=== PATIENT | female | born 1955 | race Caucasian/White ===

== ENCOUNTER 2016-09-13 14:42 | Inpatient (IN) | payer BC ==
--- NOTE | 2016-09-13 14:58 | ER Document Report ---
ED Medical Screen (RME) - General Stated Complaint: STOMACH/BACK/HEAD PAIN,CONFUSION Notes: left lower abdominal pain back pain and some dysuria. Patient does have a history of multiple kidney infections requiring hospitalizations. ft lower abdominal pain back pain and some dysuria. Patient does have a history of multiple kidney infections requiring hospitalizations. TRAVEL OUTSIDE OF THE [place] IN LAST 30 DAYS: No - Related Data Allergies/Adverse Reactions: Iodinated Contrast Media - Oral and [IV Dye, Iodine Containing] Allergy ( Intermediate, Verified 04/16/14 20:03) Vomiting morphine [Morphine] Allergy (Intermediate, Verified 04/16/14 20:03) Past Medical History - Past Medical History Cardiac Medical History: Reports: Hx Hypertension Denies: Hx Coronary Artery Disease, Hx Heart Attack Pulmonary Medical History: Denies: Hx Asthma, Hx Bronchitis, Hx COPD, Hx Pneumonia, Hx Tuberculosis Neurological Medical History: Denies: Hx Cerebrovascular Accident, Hx Seizures Endocrine Medical History: Reports: Hx Diabetes Mellitus Type 1, Hx Diabetes Mellitus Type 2, Hx Hypothyroidism Musculoskeltal Medical History: Denies Hx Arthritis Past Surgical History: Reports: Hx Section, Hx Tubal Ligation. Denies : Hx Pacemaker - Immunizations Hx Diphtheria, Pertussis, Tetanus Vaccination: Yes
[2016-09-13 15:27] LABS: ABSOLUTE LYMPHOCYTES (AUTO) 2.6 10^3/uL (0.5-4.7); ABSOLUTE MONOCYTES (AUTO) 0.8 10^3/uL (0.1-1.4); BASOPHILS % (AUTO) 0.3 % (0-2); HEMATOCRIT 29.7 % (36.0-47.0); HEMOGLOBIN 9.6 g/dL (12.0-15.5); HGB HCT DIFFERENCE -0.9; LYMPHOCYTES % (AUTO) 25.1 % (13-45); MEAN CORPUSCULAR HEMOGLOBIN 26.9 pg (27.0-33.4); MEAN CORPUSCULAR HGB CONC 32.2 g/dL (32.0-36.0); MEAN CORPUSCULAR VOLUME 84 fl (80-97); MONOCYTES % (AUTO) 7.7 % (3-13); RED BLOOD COUNT 3.56 10^6/uL (3.72-5.28); RED CELL DISTRIBUTION WIDTH 12.9 % (11.5-14.0); SEGMENTED NEUTROPHILS % (AUTO) 66.9 % (42-78); WHITE BLOOD COUNT 10.5 10^3/uL (4.0-10.5)
[2016-09-13 15:36] LABS: APPEARANCE,URINE CLOUDY; BILIRUBIN,URINE NEGATIVE (NEGATIVE); GLUCOSE, URINE >=500 mg/dL (NEGATIVE); KETONES,URINE NEGATIVE (NEGATIVE); LEUKOCYTE ESTERASE,URINE LARGE (NEGATIVE); NITRITE,URINE NEGATIVE (NEGATIVE); PROTEIN,URINE 30 mg/dL (NEGATIVE); URINE SPECIFIC GRAVITY 1.009; UROBILINOGEN,URINE NEGATIVE mg/dL (<2.0)
[2016-09-13 15:46] LABS: ALANINE AMINOTRANSFERASE 25 U/L (9-52); ALBUMIN 3.7 g/dL (3.5-5.0); ALKALINE PHOSPHATASE 156 U/L (38-126); ANION GAP 14 (5-19); ASPARTATE AMINO TRANSFERASE 14 U/L (14-36); BILIRUBIN,TOTAL 0.6 mg/dL (0.2-1.3); BLOOD UREA NITROGEN 44 mg/dL (7-20); CALCIUM 8.8 mg/dL (8.4-10.2); CARBON DIOXIDE 23 mmol/L (22-30); CHLORIDE 102 mmol/L (98-107); CREATININE RESULT 3.71 mg/dL (0.52-1.25); GLUCOSE 262 mg/dL (75-110); POTASSIUM 4.9 mmol/L (3.6-5.0); SODIUM 139.3 mmol/L (137-145); TOTAL PROTEIN 7.3 g/dL (6.3-8.2)
[2016-09-13] MEDS: NORMAL SALINE 1000 ML 1,000 ML IV PRN ×2 (16:00→16:59)
--- NOTE | 2016-09-13 16:20 | ER Document Report ---
ED General - General Chief Complaint: Abdominal Pain Stated Complaint: STOMACH/BACK/HEAD PAIN,CONFUSION Time seen by provider: 16:19 Mode of Arrival: Ambulatory Information source: Patient Notes: This is a 61-year-old female with a history of insulin requiring diabetes, hypertension, hypothyroidism, pyelonephritis and chronic kidney disease. Patient presents to the emergency room with subjective fevers, chills, left flank pain and left lower quadrant pain. TRAVEL OUTSIDE OF THE [place] IN LAST 30 DAYS: No - HPI Onset: Last week Onset/Duration: Gradual Quality of pain: Dull Severity: Moderate Pain Level: 2 Associated symptoms: Fever - Subjective fevers and chills, Nausea Exacerbated by: Denies Relieved by: Denies Similar symptoms previously: Yes Recently seen / treated by doctor: No - Related Data Allergies/Adverse Reactions: Iodinated Contrast Media - Oral and [IV Dye, Iodine Containing] Allergy ( Intermediate, Verified 09/13/16 14:59) Vomiting morphine [Morphine] Allergy (Intermediate, Verified 09/13/16 14:59) Past Medical History - General Information source: Patient - Social History Smoking Status: Never Smoker Cigarette use (# per day): No Chew tobacco use (# tins/day): No Frequency of alcohol use: None Drug Abuse: None Lives with: Family Family History: Reviewed & Not Pertinent Patient has suicidal ideation: No Patient has homicidal ideation: No - Past Medical History Cardiac Medical History: Reports: Hx Hypertension Denies: Hx Coronary Artery Disease, Hx Heart Attack Pulmonary Medical History: Denies: Hx Asthma, Hx Bronchitis, Hx COPD, Hx Pneumonia, Hx Tuberculosis Neurological Medical History: Denies: Hx Cerebrovascular Accident, Hx Seizures Endocrine Medical History: Reports: Hx Diabetes Mellitus Type 1, Hx Diabetes Mellitus Type 2, Hx Hypothyroidism Renal/ Medical History: Denies: Hx Peritoneal Dialysis Musculoskeltal Medical History: Denies Hx Arthritis Past Surgical History: Reports: Hx Section, Hx Tubal Ligation. Denies : Hx Pacemaker - Immunizations Hx Diphtheria, Pertussis, Tetanus Vaccination: Yes Hx Pneumococcal Vaccination: 06/30/13 Review of Systems - Review of Systems Constitutional: Chills, Fever - Subjective EENT: No symptoms reported Cardiovascular: No symptoms reported Respiratory: No symptoms reported Gastrointestinal: See HPI Genitourinary: See HPI Female Genitourinary: No symptoms reported Musculoskeletal: No symptoms reported Skin: No symptoms reported Hematologic/Lymphatic: No symptoms reported Neurological/Psychological: No symptoms reported Physical Exam - Vital signs Vitals: Temp Pulse Resp BP Pulse Ox 98.3 F 80 16 172/94 H 98 09/13/16 14:58 09/13/16 14:58 09/13/16 14:58 09/13/16 14:58 09/13/16 14:58 Notes: Physical exam: GENERAL: 61-year-old female, alert and oriented 3, no acute distress. HEAD: Atraumatic, normocephalic. EYES: Pupils equal round and reactive to light, extraocular movements intact, sclera anicteric, conjunctiva are normal. ENT: TMs normal, nares patent, oropharynx clear without exudates. Moist mucous membranes. NECK: Normal range of motion, supple without lymphadenopathy or JVD. LUNGS: Breath sounds clear to auscultation bilaterally and equal. No wheezes rales or rhonchi. HEART: Regular rate and rhythm without murmurs, rubs or gallops. ABDOMEN: Soft, mild left CVA tenderness and left lower quadrant tenderness without rebound or guarding, normoactive bowel sounds. No masses appreciated. EXTREMITIES: Normal range of motion, no pitting or edema. No clubbing or cyanosis. NEUROLOGICAL: Cranial nerves II through XII grossly intact. Normal speech, normal gait. PSYCH: Normal mood, normal affect. SKIN: Warm, Dry, normal turgor, no rashes or lesions noted. Course - Re-evaluation Re-evalutation: 09/13/16 20:46 Note: Patient has pyelonephritis in the setting of acute on chronic renal failure. I've started IV antibiotics and IV fluids and will admit the patient to the hospital. - Vital Signs Vital signs: Temp Pulse Resp BP Pulse Ox 98.0 F 77 16 152/60 H 100 09/13/16 17:39 09/13/16 17:39 09/13/16 14:58 09/13/16 17:39 09/13/16 17:39 - Laboratory Result Diagrams: 09/13/16 15:05 09/13/16 15:05 Laboratory results interpreted by me: 09/13/16 09/13/16 09/13/16 15:05 15:05 15:05 RBC 3.56 L Hgb 9.6 L Hct 29.7 L MCH 26.9 L BUN 44 H Creatinine 3.71 H Est GFR ( Amer) 15 L Est GFR (Non-Af Amer) 12 L Glucose 262 H Alkaline Phosphatase 156 H Urine Protein 30 H Urine Glucose (UA) >=500 H Urine Blood MODERATE H Ur Leukocyte Esterase LARGE H - Diagnostic Test Radiology reviewed: Image reviewed, Reports reviewed - CT of the abdomen consistent with left pyelonephritis Critical Care Note - Critical Care Note Total time excluding time spent on procedures (mins): 65 Discharge - Discharge Clinical Impression: acute on chronic renal failure, left sided pyelonephritis Condition: Serious Disposition: ADMITTED INPATIENT Admitting Provider: Hospitalist - Dr. Gates Unit Admitted: Medical Floor
[2016-09-13] MEDS ORDERED: LEVOFLOXACIN 500 MG/D5W RTU 100 ML IV ONE (16:21)
[2016-09-13] MEDS ORDERED: DEXTROSE 50%-WATER 25 GM/50 ML DISP.SYRIN IV PRN ×2 (18:35)
[2016-09-13] MEDS ORDERED: ACETAMINOPHEN 325 MG TABLET PO PRN (18:35)
[2016-09-13] MEDS ORDERED: GLUCAGON,HUMAN RECOMB 1 MG INJ IM PRN (18:35)
[2016-09-13] MEDS ORDERED: INSULIN REG, HUMAN 100 UNIT/ML 3 ML VIAL (PYX) SUBCUT PRN (18:35)
[2016-09-13] MEDS ORDERED: MAGNESIUM HYDROXIDE SUSP 30 ML UDCUP PO PRN (18:35)
[2016-09-13] MEDS ORDERED: DEXTROSE 40% GEL 15 GM TUBE PO PRN ×2 (18:35)
--- NOTE | 2016-09-13 18:51 | PDOC H&P ---
History of Present Illness Admission Date/PCP: HILARY SOTOMAYOR Patient complains of: Flank pain History of Present Illness: DAVID CAMARGO is a 61 year old female presents from home with 1 week history of worsening left flank pain. It finally got to the point where she couldn't treat with a heating pad and could sleep anymore so she came in for evaluation. She has a history of prior urinary tract infections requiring hospitalization but cannot remember the offending pathogen. She has a prior history of MRSA skin infection on her back that required excision and a wound VAC for a period of time. She complains of chills but no fever and no other associated symptoms including urinary symptoms, however she states on previous urinary tract infections she was also largely asymptomatic. On evaluation in the emergency department she has found have urinary tract infection with CT scan of the abdomen and pelvis demonstrating a left perinephric stranding consistent with pyelonephritis. We were asked to admit for further evaluation and management. Review of the old record shows in 2014 she had a penicillin resistant Escherichia coli as the source of her urinary tract infection. Past Medical History Cardiac Medical History: Reports: Hypertension Denies: Coronary Artery Disease, Myocardial Infarction Pulmonary Medical History: Denies: Asthma, Bronchitis, Chronic Obstructive Pulmonary Disease (COPD), Pneumonia, Tuberculosis Neurological Medical History: Denies: Seizures Endocrine Medical History: Reports: Diabetes Mellitus Type 2, Hypothyroidism Musculoskeltal Medical History: Denies: Arthritis Hematology: Denies: Anemia Past Surgical History Past Surgical History: Reports: Section, Tubal Ligation Denies: Pacemaker Social History Information Source: Patient Smoking Status: Never Smoker Frequency of Alcohol Use: None Hx Recreational Drug Use: No Hx Prescription Drug Abuse: No - Advance Directive Resuscitation Status: Full Code Family History Family History: Reviewed & Not Pertinent, DM, Hypertension Parental Family History Reviewed: Yes Children Family History Reviewed: Yes Sibling(s) Family History Reviewed.: Yes Medication/Allergy Home Medications: Insulin Glargine,Hum.rec.anlog [Lantus] 30 unit SQ BID 09/19/13 Levothyroxine Sodium [Synthroid] 250 mcg PO DAILY 09/19/13 Pregabalin [Lyrica 75 mg Capsule] 75 mg PO Q12 09/19/13 Valsartan/Hydrochlorothiazide [Diovan Hct 160-12.5 mg Tab] 1 each PO DAILY 09/19 Insulin Lispro [Humalog Insulin (Lispro) 100 unit/mL] 10 units SQ AC 04/17/14 Hydrocodone/Acetaminophen [[place] 5-325 mg Tablet] 1 tab PO Q4HP PRN #30 tablet 04/19/14 Sulfamethoxazole/Trimethoprim [Bactrim Ds Tablet] 1 tab PO Q12 06/26/14 Multivit with Calcium,Iron,Min [Multiple Vitamins For Women] 1 tab PO DAILY 07/13 Allergies/Adverse Reactions: Iodinated Contrast Media - Oral and [IV Dye, Iodine Containing] Allergy ( Intermediate, Verified 09/13/16 14:59) Vomiting morphine [Morphine] Allergy (Intermediate, Verified 09/13/16 14:59) Review of Systems Constitutional: PRESENT: chills. ABSENT: fever(s), headache(s), weight gain, weight loss Eyes: ABSENT: visual disturbances Ears: ABSENT: hearing changes Cardiovascular: ABSENT: chest pain, dyspnea on exertion, edema, orthropnea, palpitations Respiratory: ABSENT: cough, hemoptysis Gastrointestinal: PRESENT: abdominal pain - Left flank. ABSENT: constipation, diarrhea, hematemesis, hematochezia, nausea, vomiting Genitourinary: ABSENT: difficulty urinating, dysuria, hematuria Musculoskeletal: ABSENT: joint swelling Integumentary: ABSENT: rash, wounds Neurological: ABSENT: abnormal gait, abnormal speech, confusion, dizziness, focal weakness, syncope Psychiatric: ABSENT: anxiety, depression Endocrine: ABSENT: cold intolerance, heat intolerance, polydipsia, polyuria Hematologic/Lymphatic: ABSENT: easy bleeding, easy bruising Physical Exam Vital Signs: Temp Pulse Resp BP Pulse Ox 98.0 F 77 16 152/60 H 100 09/13/16 17:39 09/13/16 17:39 09/13/16 14:58 09/13/16 17:39 09/13/16 17:39 Intake & Output 09/12/16 09/13/16 09/14/16 06:59 06:59 06:59 Weight 87.8 kg General appearance: PRESENT: no acute distress, obese, well-developed Eye exam: PRESENT: conjunctiva pink, EOMI, PERRLA. ABSENT: scleral icterus Mouth exam: PRESENT: dry mucosa, tongue midline Neck exam: ABSENT: carotid bruit, JVD, lymphadenopathy, thyromegaly Respiratory exam: PRESENT: clear to auscultation grupo. ABSENT: rales, rhonchi, wheezes Cardiovascular exam: PRESENT: RRR. ABSENT: diastolic murmur, rubs, systolic murmur Pulses: PRESENT: normal radial pulses Vascular exam: PRESENT: normal capillary refill GI/Abdominal exam: PRESENT: normal bowel sounds, soft, tenderness - Extremely tender over the left lateral abdomen and flank with positive CVA tenderness. ABSENT: distended, guarding, rebound Rectal exam: PRESENT: deferred Extremities exam: ABSENT: calf tenderness, pedal edema Musculoskeletal exam: PRESENT: ambulatory Neurological exam: PRESENT: alert, awake, oriented to person, oriented to place , oriented to time Psychiatric exam: PRESENT: appropriate affect, normal mood Skin exam: PRESENT: dry, warm. ABSENT: rash - No ecchymosis Results Laboratory Results: 09/13/16 15:05 09/13/16 15:05 09/13/16 09/13/16 09/13/16 15:05 15:05 15:05 WBC 10.5 RBC 3.56 L Hgb 9.6 L Hct 29.7 L MCV 84 MCH 26.9 L MCHC 32.2 RDW 12.9 Plt Count 305 Seg Neutrophils % 66.9 Lymphocytes % 25.1 Monocytes % 7.7 Eosinophils % 0.0 Basophils % 0.3 Absolute Neutrophils 7.0 Absolute Lymphocytes 2.6 Absolute Monocytes 0.8 Absolute Eosinophils 0.0 Absolute Basophils 0.0 Sodium 139.3 Potassium 4.9 Chloride 102 Carbon Dioxide 23 Anion Gap 14 BUN 44 H Creatinine 3.71 H Est GFR ( Amer) 15 L Est GFR (Non-Af Amer) 12 L Glucose 262 H Calcium 8.8 Total Bilirubin 0.6 AST 14 ALT 25 Alkaline Phosphatase 156 H Total Protein 7.3 Albumin 3.7 Urine Color YELLOW Urine Appearance CLOUDY Urine pH 5.0 Ur Specific [place] 1.009 Urine Protein 30 H Urine Glucose (UA) >=500 H Urine Ketones NEGATIVE Urine Blood MODERATE H Urine Nitrite NEGATIVE Ur Leukocyte Esterase LARGE H Urine WBC (Auto) 121 Urine RBC (Auto) 10 Impressions: Abdomen/Pelvis CT 09/13/16 14:59 IMPRESSION: RE- DEMONSTRATION OF A DIMINUTIVE RIGHT KIDNEY WITH A PROMINENT LEFT KIDNEY, SIMILAR TO THAT SEEN ON 2014 CT IMAGING. EXAMINATION ALSO DEMONSTRATES LEFT PERINEPHRIC FAT STRANDING AND RETROPERITONEAL LYMPHADENOPATHY. IN THE SETTING OF LEFT FLANK PAIN, THESE FINDINGS MAY BE RELATED TO PYELONEPHRITIS. RECOMMEND CLINICAL CORRELATION. Assessment & Plan - Diagnosis (1) Pyelonephritis due to Escherichia coli Is this a current diagnosis for this admission?: YesPlan: Working diagnoses. Start empiric Rocephin, continue IV fluids. Antiemetics and analgesics as needed. (2) Acute kidney injury superimposed on chronic kidney disease Is this a current diagnosis for this admission?: YesPlan: Likely prerenal, possibly related to pyelonephritis without evidence for hydronephrosis and hydroureter on imaging. Treat with IV fluids and trend serum creatinine (3) Chronic kidney disease (CKD) stage G3b/A1, moderately decreased glomerular filtration rate (GFR) between 30-44 mL/min/1.73 square meter and albuminuria creatinine ratio less than 30 mg/g Is this a current diagnosis for this admission?: YesPlan: Sees Dr. Law outpatient. Hopefully will return to baseline with IV fluids. Avoid nephrotoxic medications. (4) Diabetes 1.5, managed as type 1 Plan: Insulin by sliding scale. Home medicines when able (5) Hypertension Qualifiers: Hypertension type: renovascular hypertension Qualified Code(s): I15.0 - Renovascular hypertension Is this a current diagnosis for this admission?: YesPlan: Reasonably well controlled, titrate antihypertensive regimen. - Time Time Spent: 30 to 50 Minutes Medications reviewed and adjusted accordingly: Yes Anticipated discharge: Home Within: within 48 hours - Inpatient Certification Based on my medical assessment, after consideration of the patient's comorbidities, presenting symptoms, or acuity I expect that the services needed warrant INPATIENT care.: Yes I certify that my determination is in accordance with my understanding of Medicare's requirements for reasonable and necessary INPATIENT services [42 CFR 412.3e].: Yes Medical Necessity: Failure to Improve With Outpatient Therapy, Need For IV Fluids, Need for IV Antibiotics
[2016-09-13] MEDS ORDERED: INSULIN GLARGINE,HUM.REC.ANLOG 1,000 UNIT/10 ML UNIT SUBCUT SCH (19:00)
[2016-09-13] MEDS: HYDROCODONE/ACETAMINOPHEN 5-325 MG TABLET PO PRN (20:00)
[2016-09-13] MEDS ORDERED: CEFTRIAXONE 1 GM/D5W RTU 1 GM/50 ML RTUPB IV ONE (20:00)
[2016-09-13] MEDS ORDERED: INFLUENZA ADLT QUAD (36MOS+) 2016-17 VAC 0.5 ML SYR IM PRN (23:53)
[2016-09-14] MEDS: HYDROCODONE/ACETAMINOPHEN 5-325 MG TABLET PO PRN ×3 (02:11→22:15)
[2016-09-14] MEDS: NORMAL SALINE 1000 ML 1,000 ML IV PRN ×2 (02:19→20:47)
[2016-09-14] MEDS: HEPARIN SOD (PORCINE) 5,000 UNIT/ML 1 ML SYRINGE SUBCUT SCH ×3 (06:31→22:14)
[2016-09-14 06:39] LABS: ABSOLUTE LYMPHOCYTES (AUTO) 2.3 10^3/uL (0.5-4.7); ABSOLUTE MONOCYTES (AUTO) 0.8 10^3/uL (0.1-1.4); BASOPHILS % (AUTO) 0.4 % (0-2); HEMOGLOBIN 8.6 g/dL (12.0-15.5); HGB HCT DIFFERENCE -1.2; MEAN CORPUSCULAR HEMOGLOBIN 26.7 pg (27.0-33.4); MEAN CORPUSCULAR HGB CONC 31.9 g/dL (32.0-36.0); MEAN CORPUSCULAR VOLUME 84 fl (80-97); MONOCYTES % (AUTO) 9.2 % (3-13); RED BLOOD COUNT 3.23 10^6/uL (3.72-5.28); RED CELL DISTRIBUTION WIDTH 13.1 % (11.5-14.0); SEGMENTED NEUTROPHILS % (AUTO) 65.4 % (42-78); WHITE BLOOD COUNT 9.1 10^3/uL (4.0-10.5)
[2016-09-14] MEDS: ONDANSETRON HCL INJ/PF 4 MG/2 ML SDV IV PRN ×2 (06:42→15:43)
[2016-09-14 06:55] LABS: ANION GAP 11 (5-19); BLOOD UREA NITROGEN 40 mg/dL (7-20); CALCIUM 8.1 mg/dL (8.4-10.2); CARBON DIOXIDE 23 mmol/L (22-30); CHLORIDE 106 mmol/L (98-107); CREATININE RESULT 3.43 mg/dL (0.52-1.25); GLUCOSE 228 mg/dL (75-110); MAGNESIUM 1.7 mg/dL (1.6-2.3); PHOSPHORUS 4.2 mg/dL (2.5-4.5); POTASSIUM 5.1 mmol/L (3.6-5.0); SODIUM 139.9 mmol/L (137-145)
[2016-09-14] MEDS: INSULIN LISPRO 100 UNIT/ML 3 ML VIAL SUBCUT PRN ×2 (08:25→11:35)
[2016-09-14] MEDS: DOCUSATE SODIUM 100 MG CAPSULE PO SCH (10:18)
[2016-09-14 12:37] LABS: FOLATE > 20.00 ng/mL (>2.76)
--- NOTE | 2016-09-14 12:44 | PDOC PROGRESS REPORT ---
Subjective Progress Note for:: 09/14/16 Subjective:: DAVID CAMARGO is a 61 year old female presents from home with 1 week history of worsening left flank pain. It finally got to the point where she couldn't treat with a heating pad and could sleep anymore so she came in for evaluation. She has a history of prior urinary tract infections requiring hospitalization but cannot remember the offending pathogen. She has a prior history of MRSA skin infection on her back that required excision and a wound VAC for a period of time. She complains of chills but no fever and no other associated symptoms including urinary symptoms, however she states on previous urinary tract infections she was also largely asymptomatic. On evaluation in the emergency department she has found have urinary tract infection with CT scan of the abdomen and pelvis demonstrating a left perinephric stranding consistent with pyelonephritis. We were asked to admit for further evaluation and management. Review of the old record shows in 2014 she had a penicillin resistant Escherichia coli as the source of her urinary tract infection. Physical Exam Vital Signs: Temp Pulse Resp BP Pulse Ox 97.4 F 63 16 136/75 H 97 09/14/16 07:42 09/14/16 07:42 09/14/16 07:42 09/14/16 07:42 09/14/16 07:42 Intake & Output 09/13/16 09/14/16 09/15/16 06:59 06:59 06:59 Intake Total 480 525 Output Total 550 Balance -70 525 Weight 87.8 kg General appearance: PRESENT: no acute distress, well-developed, well-nourished Head exam: PRESENT: atraumatic, normocephalic Eye exam: PRESENT: conjunctiva pink, EOMI, PERRLA. ABSENT: scleral icterus Ear exam: PRESENT: normal external ear exam Mouth exam: PRESENT: moist, tongue midline Neck exam: ABSENT: carotid bruit, JVD, lymphadenopathy, thyromegaly Respiratory exam: PRESENT: clear to auscultation grupo. ABSENT: rales, rhonchi, wheezes Cardiovascular exam: PRESENT: RRR. ABSENT: diastolic murmur, rubs, systolic murmur Pulses: PRESENT: normal dorsalis pedis pul Vascular exam: PRESENT: normal capillary refill GI/Abdominal exam: PRESENT: normal bowel sounds, soft, tenderness - Left lateral and flank pain. ABSENT: distended, guarding, rebound Rectal exam: PRESENT: deferred Extremities exam: PRESENT: full ROM. ABSENT: calf tenderness, clubbing, pedal edema Neurological exam: PRESENT: alert, awake, oriented to person, oriented to place , oriented to time, oriented to situation, CN II-XII grossly intact. ABSENT: motor sensory deficit Psychiatric exam: PRESENT: appropriate affect, normal mood. ABSENT: homicidal ideation, suicidal ideation Skin exam: PRESENT: dry, intact, warm. ABSENT: cyanosis, rash Results Laboratory Results: 09/14/16 06:09 09/14/16 06:09 09/14/16 09/14/16 09/14/16 06:09 06:09 06:09 WBC 9.1 RBC 3.23 L Hgb 8.6 L Hct 27.0 L MCV 84 MCH 26.7 L MCHC 31.9 L RDW 13.1 Plt Count 261 Seg Neutrophils % 65.4 Lymphocytes % 25.0 Monocytes % 9.2 Eosinophils % 0.0 Basophils % 0.4 Absolute Neutrophils 6.0 Absolute Lymphocytes 2.3 Absolute Monocytes 0.8 Absolute Eosinophils 0.0 Absolute Basophils 0.0 Retic Count (auto) 1.93 Absolute Retic 0.063 Sodium 139.9 Potassium 5.1 H Chloride 106 Carbon Dioxide 23 Anion Gap 11 BUN 40 H Creatinine 3.43 H Est GFR ( Amer) 16 L Est GFR (Non-Af Amer) 14 L Glucose 228 H Calcium 8.1 L Phosphorus 4.2 Magnesium 1.7 Iron TIBC % Saturation Ferritin Vitamin B12 Folate 09/14/16 06:09 WBC RBC Hgb Hct MCV MCH MCHC RDW Plt Count Seg Neutrophils % Lymphocytes % Monocytes % Eosinophils % Basophils % Absolute Neutrophils Absolute Lymphocytes Absolute Monocytes Absolute Eosinophils Absolute Basophils Retic Count (auto) Absolute Retic Sodium Potassium Chloride Carbon Dioxide Anion Gap BUN Creatinine Est GFR ( Amer) Est GFR (Non-Af Amer) Glucose Calcium Phosphorus Magnesium Iron 37 TIBC 247 L % Saturation 15 Ferritin 100.00 Vitamin B12 599.0 Folate > 20.00 Impressions: Abdomen/Pelvis CT 09/13/16 14:59 IMPRESSION: RE- DEMONSTRATION OF A DIMINUTIVE RIGHT KIDNEY WITH A PROMINENT LEFT KIDNEY, SIMILAR TO THAT SEEN ON 2014 CT IMAGING. EXAMINATION ALSO DEMONSTRATES LEFT PERINEPHRIC FAT STRANDING AND RETROPERITONEAL LYMPHADENOPATHY. IN THE SETTING OF LEFT FLANK PAIN, THESE FINDINGS MAY BE RELATED TO PYELONEPHRITIS. RECOMMEND CLINICAL CORRELATION. Assessment & Plan - Diagnosis (1) Pyelonephritis due to Escherichia coli Is this a current diagnosis for this admission?: YesPlan: Working diagnoses. Start empiric Rocephin awaiting final culture results, continue IV fluids. Antiemetics and analgesics as needed. (2) Acute kidney injury superimposed on chronic kidney disease Is this a current diagnosis for this admission?: YesPlan: Likely prerenal, possibly related to pyelonephritis without evidence for hydronephrosis and hydroureter on imaging. Treat with IV fluids and trend serum creatinine (3) Chronic kidney disease (CKD) stage G3b/A1, moderately decreased glomerular filtration rate (GFR) between 30-44 mL/min/1.73 square meter and albuminuria creatinine ratio less than 30 mg/g Is this a current diagnosis for this admission?: YesPlan: Sees Dr. Law outpatient. Hopefully will return to baseline with IV fluids. Avoid nephrotoxic medications. (4) Diabetes 1.5, managed as type 1 Plan: Insulin by sliding scale. Home medicines when able (5) Hypertension Qualifiers: Hypertension type: renovascular hypertension Qualified Code(s): I15.0 - Renovascular hypertension Is this a current diagnosis for this admission?: YesPlan: Reasonably well controlled, titrate antihypertensive regimen. - Time Time Spent with patient: 25-34 minutes Anticipated discharge: Home Within: within 24 hours
[2016-09-14] MEDS: CEFTRIAXONE 1 GM/D5W RTU 1 GM/50 ML RTUPB IV SCH (18:08)
[2016-09-14] MEDS: LACTOBACILLUS ACIDOPHILUS 250 MG TAB PO SCH (18:09)
[2016-09-14] MEDS: INSULIN GLARGINE,HUM.REC.ANLOG 1,000 UNIT/10 ML UNIT SUBCUT SCH (22:14)
[2016-09-15 07:03] LABS: HEMATOCRIT 28.6 % (36.0-47.0); HGB HCT DIFFERENCE -1.6; MEAN CORPUSCULAR HEMOGLOBIN 26.4 pg (27.0-33.4); MEAN CORPUSCULAR HGB CONC 31.5 g/dL (32.0-36.0); MEAN CORPUSCULAR VOLUME 84 fl (80-97); RED BLOOD COUNT 3.42 10^6/uL (3.72-5.28); RED CELL DISTRIBUTION WIDTH 12.8 % (11.5-14.0); WHITE BLOOD COUNT 7.7 10^3/uL (4.0-10.5)
[2016-09-15] MEDS: HEPARIN SOD (PORCINE) 5,000 UNIT/ML 1 ML SYRINGE SUBCUT SCH ×2 (07:22→22:31)
[2016-09-15 07:23] LABS: ANION GAP 8 (5-19); BLOOD UREA NITROGEN 36 mg/dL (7-20); CALCIUM 8.2 mg/dL (8.4-10.2); CARBON DIOXIDE 23 mmol/L (22-30); CHLORIDE 112 mmol/L (98-107); CREATININE RESULT 3.23 mg/dL (0.52-1.25); GLUCOSE 80 mg/dL (75-110); POTASSIUM 4.9 mmol/L (3.6-5.0); SODIUM 143.4 mmol/L (137-145)
[2016-09-15] MEDS: NORMAL SALINE 1000 ML 1,000 ML IV PRN ×2 (09:00→22:31)
[2016-09-15] MEDS ORDERED: HEPARIN SOD (PORCINE) 5,000 UNIT/ML 1 ML SYRINGE SUBCUT SCH (10:00)
[2016-09-15] MEDS: DOCUSATE SODIUM 100 MG CAPSULE PO SCH (10:36)
[2016-09-15] MEDS: LACTOBACILLUS ACIDOPHILUS 250 MG TAB PO SCH ×2 (10:36→17:33)
[2016-09-15] MEDS: INSULIN GLARGINE,HUM.REC.ANLOG 1,000 UNIT/10 ML UNIT SUBCUT SCH ×2 (10:36→22:31)
--- NOTE | 2016-09-15 12:26 | PDOC PROGRESS REPORT ---
Subjective Progress Note for:: 09/15/16 Subjective:: Patient is feeling better she states that the pain in the back is much more tolerable She has no fever no chills no nausea or vomiting She still on IV fluid renal function has improved somewhat Physical Exam Vital Signs: Temp Pulse Resp BP Pulse Ox 98.1 F 66 18 138/65 H 97 09/15/16 11:05 09/15/16 11:05 09/15/16 11:05 09/15/16 11:05 09/15/16 11:05 Intake & Output 09/14/16 09/15/16 09/16/16 00:59 00:59 00:59 Intake Total 1005 1740 Output Total 1450 900 Balance -445 840 Weight 87.8 kg 87.9 kg General appearance: PRESENT: no acute distress, well-developed, well-nourished Head exam: PRESENT: atraumatic, normocephalic Eye exam: PRESENT: conjunctiva pink, EOMI, PERRLA. ABSENT: scleral icterus Ear exam: PRESENT: normal external ear exam Mouth exam: PRESENT: moist, tongue midline Neck exam: ABSENT: carotid bruit, JVD, lymphadenopathy, thyromegaly Respiratory exam: PRESENT: clear to auscultation grupo. ABSENT: rales, rhonchi, wheezes Cardiovascular exam: PRESENT: RRR. ABSENT: diastolic murmur, rubs, systolic murmur Pulses: PRESENT: normal dorsalis pedis pul Vascular exam: PRESENT: normal capillary refill GI/Abdominal exam: PRESENT: normal bowel sounds, soft. ABSENT: distended, guarding, mass, organolmegaly, rebound, tenderness Rectal exam: PRESENT: deferred Extremities exam: PRESENT: full ROM. ABSENT: calf tenderness, clubbing, pedal edema Neurological exam: PRESENT: alert, awake, oriented to person, oriented to place , oriented to time, oriented to situation, CN II-XII grossly intact. ABSENT: motor sensory deficit Psychiatric exam: PRESENT: appropriate affect, normal mood. ABSENT: homicidal ideation, suicidal ideation Skin exam: PRESENT: dry, intact, warm. ABSENT: cyanosis, rash Results Laboratory Results: 09/15/16 06:13 09/15/16 06:13 09/14/16 09/14/16 09/15/16 06:09 06:09 06:13 WBC 7.7 RBC 3.42 L Hgb 9.0 L Hct 28.6 L MCV 84 MCH 26.4 L MCHC 31.5 L RDW 12.8 Plt Count 272 Sodium Potassium Chloride Carbon Dioxide Anion Gap BUN Creatinine Est GFR ( Amer) Est GFR (Non-Af Amer) Glucose Calcium Iron 37 TIBC 247 L % Saturation 15 Transferrin 177 L Ferritin 100.00 Vitamin B12 599.0 Folate > 20.00 09/15/16 06:13 WBC RBC Hgb Hct MCV MCH MCHC RDW Plt Count Sodium 143.4 Potassium 4.9 Chloride 112 H Carbon Dioxide 23 Anion Gap 8 BUN 36 H Creatinine 3.23 H Est GFR ( Amer) 18 L Est GFR (Non-Af Amer) 15 L Glucose 80 Calcium 8.2 L Iron TIBC % Saturation Transferrin Ferritin Vitamin B12 Folate Impressions: Abdomen/Pelvis CT 09/13/16 14:59 IMPRESSION: RE- DEMONSTRATION OF A DIMINUTIVE RIGHT KIDNEY WITH A PROMINENT LEFT KIDNEY, SIMILAR TO THAT SEEN ON 2013 CT IMAGING. EXAMINATION ALSO DEMONSTRATES LEFT PERINEPHRIC FAT STRANDING AND RETROPERITONEAL LYMPHADENOPATHY. IN THE SETTING OF LEFT FLANK PAIN, THESE FINDINGS MAY BE RELATED TO PYELONEPHRITIS. RECOMMEND CLINICAL CORRELATION. Assessment & Plan - Diagnosis (1) Chronic anemia Is this a current diagnosis for this admission?: YesPlan: Anemia of chronic disease secondary to CKD Hematocrit is stable at 28 Serum iron and B-12 and folate are normal Treatment as per nephrology Patient does not need Epogen at this time (2) Acute kidney injury superimposed on chronic kidney disease Is this a current diagnosis for this admission?: YesPlan: Acute on chronic renal failure Patient has underlying CKD stage IV Continue to hydrate gently (3) Pyelonephritis due to Escherichia coli Is this a current diagnosis for this admission?: YesPlan: Continue ceftriaxone (4) Diabetes 1.5, managed as type 1 Is this a current diagnosis for this admission?: YesPlan: Continue the present management (5) Hypertension Qualifiers: Hypertension type: renovascular hypertension Qualified Code(s): I15.0 - Renovascular hypertension Is this a current diagnosis for this admission?: YesPlan: Controlled - Time Time Spent with patient: 25-34 minutes Within: within 24 hours - We will discharge patient in a.m. if her renal function continues to improve
[2016-09-15] MEDS: CEFTRIAXONE 1 GM/D5W RTU 1 GM/50 ML RTUPB IV SCH (17:34)
[2016-09-15] MEDS: HYDROCODONE/ACETAMINOPHEN 5-325 MG TABLET PO PRN (22:25)
[2016-09-15] MEDS: INSULIN LISPRO 100 UNIT/ML 3 ML VIAL SUBCUT PRN (22:31)
[2016-09-15] MEDS: ONDANSETRON HCL INJ/PF 4 MG/2 ML SDV IV PRN (22:33)
[2016-09-16] MEDS: NORMAL SALINE 1000 ML 1,000 ML IV PRN (05:23)
[2016-09-16] MEDS: INSULIN GLARGINE,HUM.REC.ANLOG 1,000 UNIT/10 ML UNIT SUBCUT SCH (09:53)
[2016-09-16] MEDS: DOCUSATE SODIUM 100 MG CAPSULE PO SCH (09:55)
[2016-09-16] MEDS: HEPARIN SOD (PORCINE) 5,000 UNIT/ML 1 ML SYRINGE SUBCUT SCH (09:55)
[2016-09-16] MEDS: LACTOBACILLUS ACIDOPHILUS 250 MG TAB PO SCH (09:56)
[2016-09-16 12:10] VITALS: BP 137/71
--- NOTE | 2016-09-16 13:35 | PDOC DISCHARGE SUMMARY ---
General - Admit/Disc Date/PCP Admission Date/Primary Care Provider: 09/13/16 18:35 HILARY [employer]OTOM[employer] TEAM PSYCHOLOGIST Discharge Date: 09/16/16 - Discharge Diagnosis (1) Chronic anemia Is this a current diagnosis for this admission?: YesSummary: Anemia of chronic disease secondary to chronic renal failure H&H were 9 and 28 at discharge Follow-up with Dr. Law (2) Acute kidney injury superimposed on chronic kidney disease Is this a current diagnosis for this admission?: YesSummary: Patient's baseline creatinine was 2.5 It was 3.7 on admission Patient's creatinine has come down to 3.2 at discharge We advised the patient to continue drinking lots of fluids; and hold hydrochlorothiazide until reevaluated by Dr. Law (3) Pyelonephritis due to Escherichia coli Is this a current diagnosis for this admission?: YesSummary: The Escherichia coli was pansensitive We discharged the patient on Keflex 250 mg twice a day for 10 days (4) Diabetes 1.5, managed as type 1 Is this a current diagnosis for this admission?: YesSummary: The Lantus insulin was decreased decreased as patient's blood sugars were running on the low side during hospitalization (5) Hypertension Is this a current diagnosis for this admission?: YesSummary: Was controlled Reevaluate medications to one week; hydrochlorothiazide may need to be resumed - Additional Information Resuscitation Status: Full Code Discharge Diet: Diabetic Discharge Activity: Activity As Tolerated Home Medications: Atorvastatin Calcium [Lipitor 20 mg Tablet] 20 mg PO QHS 09/14/16 Levothyroxine Sodium [Synthroid 0.112 mg Tablet] 224 mcg PO QAM 09/14/16 Pregabalin [Lyrica 75 mg Capsule] 75 mg PO DAILY 09/14/16 Cephalexin Monohydrate [Keflex 250 mg Capsule] 250 mg PO Q12H #20 capsule Hydrocodone/Acetaminophen [[place] 5-325 mg Tablet] 1 tab PO Q4HP PRN #20 tablet 09/16/16 Insulin Glargine,Hum.rec.anlog [Lantus Insulin 100 Unit/1 ml 10 ml] 20 unit SUBCUT Q12 #1 unit 09/16/16 Insulin Lispro [Humalog Insulin (Lispro) 100 unit/mL] 0 unit SUBCUT .SLD SCALE # 1 pe 09/16/16 History of Present Illness Patient complains of: left flank pain History of Present Illness: DAVID CAMARGO is a 61 year old female presents from home with 1 week history of worsening left flank pain. It finally got to the point where she couldn't treat with a heating pad and could sleep anymore so she came in for evaluation. She has a history of prior urinary tract infections requiring hospitalization but cannot remember the offending pathogen. She has a prior history of MRSA skin infection on her back that required excision and a wound VAC for a period of time. She complains of chills but no fever and no other associated symptoms including urinary symptoms , however she states on previous urinary tract infections she was also largely asymptomatic. On evaluation in the emergency department she has found have urinary tract infection with CT scan of the abdomen and pelvis demonstrating a left perinephric stranding consistent with pyelonephritis. We were asked to admit for further evaluation and management. Review of the old record shows in 2014 she had a penicillin resistant Escherichia coli as the source of her urinary tract infection. Hospital Course Hospital Course: Patient was admitted with acute pyelonephritis There was no evidence of post obstructive uropathy She was treated with ceftriaxone IV and improved Pain decreased , leukocytosis improved Patient was discharged on Keflex Patient was in acute on chronic renal failure on admission The renal failure has improved at discharge; she is not yet back to baseline Physical Exam Vital Signs: Temp Pulse Resp BP Pulse Ox 97.4 F 65 15 137/71 H 98 09/16/16 12:06 09/16/16 12:06 09/16/16 12:06 09/16/16 12:06 09/16/16 12:06 Intake & Output 09/15/16 09/16/16 09/17/16 00:59 00:59 00:59 Intake Total 1005 2680 2586 Output Total 1450 1600 900 Balance -445 1080 1686 Weight 87.9 kg 91.8 kg Results Laboratory Results: 09/15/16 06:13 09/15/16 06:13 Labs- All tests 24 hr 09/15/16 09/15/16 09/16/16 17:33 22:11 06:21 POC Glucose 196 H 197 H 57 L 09/16/16 08:58 POC Glucose 124 H Labs- Entire Visit 01/15/17 01/15/17 01/15/17 15:05 15:05 15:05 WBC 10.5 RBC 3.56 L Hgb 9.6 L Hct 29.7 L MCV 84 MCH 26.9 L MCHC 32.2 RDW 12.9 Plt Count 305 Seg Neutrophils % 66.9 Lymphocytes % 25.1 Monocytes % 7.7 Eosinophils % 0.0 Basophils % 0.3 Absolute Neutrophils 7.0 Absolute Lymphocytes 2.6 Absolute Monocytes 0.8 Absolute Eosinophils 0.0 Absolute Basophils 0.0 Retic Count (auto) Absolute Retic Sodium 139.3 Potassium 4.9 Chloride 102 Carbon Dioxide 23 Anion Gap 14 BUN 44 H Creatinine 3.71 H Est GFR ( Amer) 15 L Est GFR (Non-Af Amer) 12 L Glucose 262 H POC Glucose Calcium 8.8 Phosphorus Magnesium Iron TIBC % Saturation Transferrin Ferritin Total Bilirubin 0.6 Direct Bilirubin 0.0 AST 14 ALT 25 Alkaline Phosphatase 156 H Total Protein 7.3 Albumin 3.7 Vitamin B12 Folate Urine Color YELLOW Urine Appearance CLOUDY Urine pH 5.0 Ur Specific [place] 1.009 Urine Protein 30 H Urine Glucose (UA) >=500 H Urine Ketones NEGATIVE Urine Blood MODERATE H Urine Nitrite NEGATIVE Urine Bilirubin NEGATIVE Urine Urobilinogen NEGATIVE Ur Leukocyte Esterase LARGE H Urine WBC (Auto) 121 Urine RBC (Auto) 10 Urine Bacteria (Auto) 1+ Urine WBC Clumps FEW Squamous Epi Cells Auto 8 U Non-Squamous Epis Auto <1 Urine Mucus (Auto) RARE Urine Ascorbic Acid NEGATIVE 09/14/16 09/14/16 09/14/16 06:09 06:09 06:09 WBC 9.1 RBC 3.23 L Hgb 8.6 L Hct 27.0 L MCV 84 MCH 26.7 L MCHC 31.9 L RDW 13.1 Plt Count 261 Seg Neutrophils % 65.4 Lymphocytes % 25.0 Monocytes % 9.2 Eosinophils % 0.0 Basophils % 0.4 Absolute Neutrophils 6.0 Absolute Lymphocytes 2.3 Absolute Monocytes 0.8 Absolute Eosinophils 0.0 Absolute Basophils 0.0 Retic Count (auto) 1.93 Absolute Retic 0.063 Sodium 139.9 Potassium 5.1 H Chloride 106 Carbon Dioxide 23 Anion Gap 11 BUN 40 H Creatinine 3.43 H Est GFR ( Amer) 16 L Est GFR (Non-Af Amer) 14 L Glucose 228 H POC Glucose Calcium 8.1 L Phosphorus 4.2 Magnesium 1.7 Iron TIBC % Saturation Transferrin Ferritin Total Bilirubin Direct Bilirubin AST ALT Alkaline Phosphatase Total Protein Albumin Vitamin B12 Folate Urine Color Urine Appearance Urine pH Ur Specific [place] Urine Protein Urine Glucose (UA) Urine Ketones Urine Blood Urine Nitrite Urine Bilirubin Urine Urobilinogen Ur Leukocyte Esterase Urine WBC (Auto) Urine RBC (Auto) Urine Bacteria (Auto) Urine WBC Clumps Squamous Epi Cells Auto U Non-Squamous Epis Auto Urine Mucus (Auto) Urine Ascorbic Acid 09/14/16 09/14/16 09/14/16 06:09 06:09 07:39 WBC RBC Hgb Hct MCV MCH MCHC RDW Plt Count Seg Neutrophils % Lymphocytes % Monocytes % Eosinophils % Basophils % Absolute Neutrophils Absolute Lymphocytes Absolute Monocytes Absolute Eosinophils Absolute Basophils Retic Count (auto) Absolute Retic Sodium Potassium Chloride Carbon Dioxide Anion Gap BUN Creatinine Est GFR ( Amer) Est GFR (Non-Af Amer) Glucose POC Glucose 219 H Calcium Phosphorus Magnesium Iron 37 TIBC 247 L % Saturation 15 Transferrin 177 L Ferritin 100.00 Total Bilirubin Direct Bilirubin AST ALT Alkaline Phosphatase Total Protein Albumin Vitamin B12 599.0 Folate > 20.00 Urine Color Urine Appearance Urine pH Ur Specific [place] Urine Protein Urine Glucose (UA) Urine Ketones Urine Blood Urine Nitrite Urine Bilirubin Urine Urobilinogen Ur Leukocyte Esterase Urine WBC (Auto) Urine RBC (Auto) Urine Bacteria (Auto) Urine WBC Clumps Squamous Epi Cells Auto U Non-Squamous Epis Auto Urine Mucus (Auto) Urine Ascorbic Acid 09/14/16 09/14/16 09/14/16 11:24 16:49 21:58 WBC RBC Hgb Hct MCV MCH MCHC RDW Plt Count Seg Neutrophils % Lymphocytes % Monocytes % Eosinophils % Basophils % Absolute Neutrophils Absolute Lymphocytes Absolute Monocytes Absolute Eosinophils Absolute Basophils Retic Count (auto) Absolute Retic Sodium Potassium Chloride Carbon Dioxide Anion Gap BUN Creatinine Est GFR ( Amer) Est GFR (Non-Af Amer) Glucose POC Glucose 221 H 146 H 128 H Calcium Phosphorus Magnesium Iron TIBC % Saturation Transferrin Ferritin Total Bilirubin Direct Bilirubin AST ALT Alkaline Phosphatase Total Protein Albumin Vitamin B12 Folate Urine Color Urine Appearance Urine pH Ur Specific [place] Urine Protein Urine Glucose (UA) Urine Ketones Urine Blood Urine Nitrite Urine Bilirubin Urine Urobilinogen Ur Leukocyte Esterase Urine WBC (Auto) Urine RBC (Auto) Urine Bacteria (Auto) Urine WBC Clumps Squamous Epi Cells Auto U Non-Squamous Epis Auto Urine Mucus (Auto) Urine Ascorbic Acid 01/17/17 01/17/17 01/17/17 06:13 06:13 06:44 WBC 7.7 RBC 3.42 L Hgb 9.0 L Hct 28.6 L MCV 84 MCH 26.4 L MCHC 31.5 L RDW 12.8 Plt Count 272 Seg Neutrophils % Lymphocytes % Monocytes % Eosinophils % Basophils % Absolute Neutrophils Absolute Lymphocytes Absolute Monocytes Absolute Eosinophils Absolute Basophils Retic Count (auto) Absolute Retic Sodium 143.4 Potassium 4.9 Chloride 112 H Carbon Dioxide 23 Anion Gap 8 BUN 36 H Creatinine 3.23 H Est GFR ( Amer) 18 L Est GFR (Non-Af Amer) 15 L Glucose 80 POC Glucose 72 Calcium 8.2 L Phosphorus Magnesium Iron TIBC % Saturation Transferrin Ferritin Total Bilirubin Direct Bilirubin AST ALT Alkaline Phosphatase Total Protein Albumin Vitamin B12 Folate Urine Color Urine Appearance Urine pH Ur Specific [place] Urine Protein Urine Glucose (UA) Urine Ketones Urine Blood Urine Nitrite Urine Bilirubin Urine Urobilinogen Ur Leukocyte Esterase Urine WBC (Auto) Urine RBC (Auto) Urine Bacteria (Auto) Urine WBC Clumps Squamous Epi Cells Auto U Non-Squamous Epis Auto Urine Mucus (Auto) Urine Ascorbic Acid 09/15/16 09/15/16 09/15/16 11:25 17:33 22:11 WBC RBC Hgb Hct MCV MCH MCHC RDW Plt Count Seg Neutrophils % Lymphocytes % Monocytes % Eosinophils % Basophils % Absolute Neutrophils Absolute Lymphocytes Absolute Monocytes Absolute Eosinophils Absolute Basophils Retic Count (auto) Absolute Retic Sodium Potassium Chloride Carbon Dioxide Anion Gap BUN Creatinine Est GFR ( Amer) Est GFR (Non-Af Amer) Glucose POC Glucose 142 H 196 H 197 H Calcium Phosphorus Magnesium Iron TIBC % Saturation Transferrin Ferritin Total Bilirubin Direct Bilirubin AST ALT Alkaline Phosphatase Total Protein Albumin Vitamin B12 Folate Urine Color Urine Appearance Urine pH Ur Specific [place] Urine Protein Urine Glucose (UA) Urine Ketones Urine Blood Urine Nitrite Urine Bilirubin Urine Urobilinogen Ur Leukocyte Esterase Urine WBC (Auto) Urine RBC (Auto) Urine Bacteria (Auto) Urine WBC Clumps Squamous Epi Cells Auto U Non-Squamous Epis Auto Urine Mucus (Auto) Urine Ascorbic Acid 09/16/16 09/16/16 06:21 08:58 WBC RBC Hgb Hct MCV MCH MCHC RDW Plt Count Seg Neutrophils % Lymphocytes % Monocytes % Eosinophils % Basophils % Absolute Neutrophils Absolute Lymphocytes Absolute Monocytes Absolute Eosinophils Absolute Basophils Retic Count (auto) Absolute Retic Sodium Potassium Chloride Carbon Dioxide Anion Gap BUN Creatinine Est GFR ( Amer) Est GFR (Non-Af Amer) Glucose POC Glucose 57 L 124 H Calcium Phosphorus Magnesium Iron TIBC % Saturation Transferrin Ferritin Total Bilirubin Direct Bilirubin AST ALT Alkaline Phosphatase Total Protein Albumin Vitamin B12 Folate Urine Color Urine Appearance Urine pH Ur Specific [place] Urine Protein Urine Glucose (UA) Urine Ketones Urine Blood Urine Nitrite Urine Bilirubin Urine Urobilinogen Ur Leukocyte Esterase Urine WBC (Auto) Urine RBC (Auto) Urine Bacteria (Auto) Urine WBC Clumps Squamous Epi Cells Auto U Non-Squamous Epis Auto Urine Mucus (Auto) Urine Ascorbic Acid Impressions: Abdomen/Pelvis CT 09/13/16 14:59 IMPRESSION: RE- DEMONSTRATION OF A DIMINUTIVE RIGHT KIDNEY WITH A PROMINENT LEFT KIDNEY, SIMILAR TO THAT SEEN ON 2014 CT IMAGING. EXAMINATION ALSO DEMONSTRATES LEFT PERINEPHRIC FAT STRANDING AND RETROPERITONEAL LYMPHADENOPATHY. IN THE SETTING OF LEFT FLANK PAIN, THESE FINDINGS MAY BE RELATED TO PYELONEPHRITIS. RECOMMEND CLINICAL CORRELATION. Plan Discharge Plan: Discharged home Follow up with nephrology and primary care Time Spent: Greater than 30 Minutes
== END 2016-09-16 12:30 | disposition home or self-care (01) | DRG 690 ==
LOC: ER 14:42 → EH 18:35 → 2N 23:15
PROVIDERS: ADMIT Internal Medicine; ATTEND Internal Medicine
DX: N12 Tubulo-interstitial nephritis, not specified as acute or chronic (principal); B96.20 Unspecified Escherichia coli [E. coli] as the cause of diseases classified elsewhere; N17.9 Acute kidney failure, unspecified; E10.22 Type 1 diabetes mellitus with diabetic chronic kidney disease; I12.9 Hypertensive chronic kidney disease with stage 1 through stage 4 chronic kidney disease, or unspecified chronic kidney disease; N18.4 Chronic kidney disease, stage 4 (severe); D63.1 Anemia in chronic kidney disease; E03.9 Hypothyroidism, unspecified; Z88.5 Allergy status to narcotic agent; Z91.041 Radiographic dye allergy status
CPT/HCPCS: 36415; 74176; 80048; 80053; 81001; 82607; 82728; 82746; 82962; 83540; 83550; 83735; 84100; 84466; 85025; 85027; 85045; 87040; 87086; 96361; 96365; 99291; J0696; J1644; J1815; J1956; J2405; J7030

== ENCOUNTER → 2016-09-18 | Outpatient (CLI) | payer BC ==
[2016-09-18 14:50] LABS: HEMATOCRIT 30.8 % (36.0-47.0); HEMOGLOBIN 9.7 g/dL (12.0-15.5); HGB HCT DIFFERENCE -1.7; MEAN CORPUSCULAR HEMOGLOBIN 26.4 pg (27.0-33.4); MEAN CORPUSCULAR HGB CONC 31.5 g/dL (32.0-36.0); MEAN CORPUSCULAR VOLUME 84 fl (80-97); RED BLOOD COUNT 3.68 10^6/uL (3.72-5.28); RED CELL DISTRIBUTION WIDTH 13.4 % (11.5-14.0); WHITE BLOOD COUNT 8.1 10^3/uL (4.0-10.5)
[2016-09-18 15:16] LABS: ANION GAP 16 (5-19); BLOOD UREA NITROGEN 28 mg/dL (7-20); CALCIUM 8.9 mg/dL (8.4-10.2); CARBON DIOXIDE 20 mmol/L (22-30); CHLORIDE 110 mmol/L (98-107); CREATININE RESULT 3.21 mg/dL (0.52-1.25); GLUCOSE 89 mg/dL (75-110); PHOSPHORUS 4.7 mg/dL (2.5-4.5); POTASSIUM 5.4 mmol/L (3.6-5.0); SODIUM 145.7 mmol/L (137-145)
== END ==
LOC: OD 13:49
PROVIDERS: ATTEND Internal Medicine Nephrology
DX: E11.22 Type 2 diabetes mellitus with diabetic chronic kidney disease (principal); N18.4 Chronic kidney disease, stage 4 (severe); D64.9 Anemia, unspecified; E87.5 Hyperkalemia
CPT/HCPCS: 36415; 80048; 83970; 84100; 85027

== ENCOUNTER 2016-09-25 15:54 | Inpatient (IN) | payer BC ==
--- NOTE | 2016-09-25 16:09 | ER Document Report ---
ED Medical Screen (RME) - General Chief Complaint: High Blood Pressure Stated Complaint: BLOOD PRESSURE PROBLEM Mode of Arrival: Wheelchair Information source: Relative Notes: 61-year-old female presents to ED for severe headache blood pressure of 217/115 was sent over here by Dr. Law (pressure 258/117) in the office. Family states she's had a headache for 4 days and confusion today. Consult to Dr. Espinoza stated get the CT of the head and to give her clonidine 0.2 by mouth if she is not a really had something for the blood pressure. I have greeted and performed a rapid initial assessment of this patient. A comprehensive ED assessment and evaluation of the patient, analysis of test results and completion of medical decision making process will be conducted by an additional ED providers. TRAVEL OUTSIDE OF THE [place] IN LAST 30 DAYS: No - Related Data Allergies/Adverse Reactions: Iodinated Contrast Media - Oral and [IV Dye, Iodine Containing] Allergy ( Intermediate, Verified 09/13/16 14:59) Vomiting morphine [Morphine] Allergy (Intermediate, Verified 09/13/16 14:59) Past Medical History - Social History Chew tobacco use (# tins/day): No Frequency of alcohol use: None Drug Abuse: None - Past Medical History Cardiac Medical History: Reports: Hx Hypertension Denies: Hx Coronary Artery Disease, Hx Heart Attack Pulmonary Medical History: Denies: Hx Asthma, Hx Bronchitis, Hx COPD, Hx Pneumonia, Hx Tuberculosis Neurological Medical History: Denies: Hx Cerebrovascular Accident, Hx Seizures Endocrine Medical History: Reports: Hx Diabetes Mellitus Type 1, Hx Diabetes Mellitus Type 2, Hx Hypothyroidism Renal/ Medical History: Denies: Hx Peritoneal Dialysis Musculoskeltal Medical History: Denies Hx Arthritis Past Surgical History: Reports: Hx Section, Hx Tubal Ligation. Denies : Hx Pacemaker - Immunizations Hx Diphtheria, Pertussis, Tetanus Vaccination: Yes Physical Exam - Vital signs Vitals: Temp Pulse Resp BP Pulse Ox 97.3 F 76 22 H 258/117 H 98 09/25/16 15:59 09/25/16 15:59 09/25/16 15:59 09/25/16 15:59 09/25/16 15:59 Course - Vital Signs Vital signs: Temp Pulse Resp BP Pulse Ox 97.3 F 76 22 H 258/117 H 98 09/25/16 15:59 09/25/16 15:59 09/25/16 15:59 09/25/16 15:59 09/25/16 15:59
[2016-09-25] MEDS ORDERED: CLONIDINE HCL 0.2 MG TABLET PO ONE (16:19)
[2016-09-25 17:18] LABS: ABSOLUTE BASOPHILS # (AUTO) 0.1 10^3/uL (0.0-0.2); ABSOLUTE LYMPHOCYTES (AUTO) 2.3 10^3/uL (0.5-4.7); ABSOLUTE MONOCYTES (AUTO) 0.6 10^3/uL (0.1-1.4); ABSOLUTE NEUT (AUTO) 5.6 10^3/uL (1.7-8.2); BASOPHILS % (AUTO) 0.6 % (0-2); EOSINOPHILS % (AUTO) 0.1 % (0-6); HEMATOCRIT 31.5 % (36.0-47.0); HEMOGLOBIN 10.5 g/dL (12.0-15.5); LYMPHOCYTES % (AUTO) 27.2 % (13-45); MEAN CORPUSCULAR HEMOGLOBIN 27.3 pg (27.0-33.4); MEAN CORPUSCULAR HGB CONC 33.2 g/dL (32.0-36.0); MEAN CORPUSCULAR VOLUME 82 fl (80-97); MONOCYTES % (AUTO) 6.8 % (3-13); RED BLOOD COUNT 3.83 10^6/uL (3.72-5.28); RED CELL DISTRIBUTION WIDTH 13.8 % (11.5-14.0); SEGMENTED NEUTROPHILS % (AUTO) 65.3 % (42-78); WHITE BLOOD COUNT 8.5 10^3/uL (4.0-10.5)
--- NOTE | 2016-09-25 17:22 | ER Document Report ---
ED General - General Chief Complaint: High Blood Pressure Stated Complaint: BLOOD PRESSURE PROBLEM Mode of Arrival: Wheelchair Notes: Patient is complaining of a headache, located across the lower frontal forehead region for the past 8 days. She was in this hospital for a "kidney infection" for 3 days and discharged about 9 days ago. Patient says that while she was here, the doctors told her to stop taking her blood pressure medicine because one of them was increasing her potassium level and the other one was making her dehydrated. Patient says they did not offer an alternative for her blood pressure. She's had some vomiting, the last being last night. Has not had a fever. Has not had any loss of consciousness or any neurologic deficits. Patient went to Dr. Law's office today, but he felt that her problem was too complex for him to try to handle in the office with oral medications. TRAVEL OUTSIDE OF THE [place] IN LAST 30 DAYS: No - Related Data Allergies/Adverse Reactions: Iodinated Contrast Media - Oral and [IV Dye, Iodine Containing] Allergy ( Intermediate, Verified 09/13/16 14:59) Vomiting morphine [Morphine] Allergy (Intermediate, Verified 09/13/16 14:59) Past Medical History - General Information source: Relative - Social History Smoking Status: Smoker,Current Status Unk Cigarette use (# per day): No Chew tobacco use (# tins/day): No Frequency of alcohol use: None Drug Abuse: None Family History: Reviewed & Not Pertinent Patient has suicidal ideation: No Patient has homicidal ideation: No - Past Medical History Cardiac Medical History: Reports: Hx Hypercholesterolemia, Hx Hypertension Neurological Medical History: Denies: Hx Cerebrovascular Accident, Hx Seizures Endocrine Medical History: Reports: Hx Diabetes Mellitus Type 1, Hx Diabetes Mellitus Type 2, Hx Hypothyroidism Musculoskeltal Medical History: Denies Hx Arthritis Past Surgical History: Reports: Hx Section, Hx Tubal Ligation - Immunizations Hx Diphtheria, Pertussis, Tetanus Vaccination: Yes Hx Pneumococcal Vaccination: 06/30/13 Review of Systems - Review of Systems Notes: REVIEW OF SYSTEMS: CONSTITUTIONAL : Denies fever. EENT: Denies eye, ear, nose or mouth or throat pain or other symptoms. CARDIOVASCULAR: Denies chest pain. RESPIRATORY: Denies cough, chest congestion, or shortness of breath. GASTROINTESTINAL: Denies abdominal pain but has been having nausea and some vomiting, the most recent being last night. Denies diarrhea.. GENITOURINARY: Denies difficulty or painful urinating, urinary frequency, blood in urine. MUSCULOSKELETAL: Denies back or neck pain. Denies joint pain or swelling. SKIN: Denies rash or skin lesions. NEUROLOGICAL: Denies LOC or altered mental status. Denies headache. Denies sensory loss or motor deficits. ALL OTHER SYSTEMS REVIEWED AND NEGATIVE. Physical Exam - Vital signs Vitals: Temp Pulse Resp BP Pulse Ox 97.3 F 76 22 H 258/117 H 98 09/25/16 15:59 09/25/16 15:59 09/25/16 15:59 09/25/16 15:59 09/25/16 15:59 Interpretation: Hypertensive - 258/117. - Notes Notes: PHYSICAL EXAMINATION: GENERAL: Well-appearing, in no acute distress. Blood pressure 258/117. Patient is awake and alert. HEAD: Atraumatic, normocephalic. EYES: Pupils equal round and reactive to light, extraocular movements intact. ENT: oropharynx clear without exudates. Moist mucous membranes. NECK: Normal range of motion, supple. LUNGS: Breath sounds clear and equal bilaterally. HEART: Regular rate and rhythm without murmurs. ABDOMEN: Soft, nontender. No guarding or rebound. BACK: No tenderness throughout entire back. EXTREMITIES: Normal range of motion without pain. NEUROLOGICAL: Normal speech gait. Normal sensory, motor, and reflex exams. Awake, alert, and oriented x3. PSYCH: Normal mood, normal affect. SKIN: Warm, dry, no rashes. Course - Re-evaluation Re-evalutation: 09/25/16 17:[address] Law, patient's private doctor/superior court justice. He recommended blood pressure control with consideration of admission for malignant hypertension. I will contact hospitalist for patient evaluation after I get her lab results come back. 09/25/16 18:08 Labs come back showing relatively stable renal insufficiency with a creatinine of 2.9 and a BUN of 28 and a potassium of 5.5. CBC is relatively stable with a hemoglobin at 10.5. Blood pressure at this time is 190/110. Patient says her headache is no better, however. Spoke with Dr. Gates, hospitalist quality control associate at this time, and he will see the patient in the emergency department to admit her. - Vital Signs Vital signs: Temp Pulse Resp BP Pulse Ox 98.1 F 66 16 119/110 H 97 09/25/16 17:47 09/25/16 17:47 09/25/16 17:47 09/25/16 18:03 09/25/16 17:47 - Laboratory Result Diagrams: 09/25/16 17:00 09/25/16 17:00 Laboratory results interpreted by me: 09/25/16 09/25/16 09/25/16 17:00 17:00 17:50 Hgb 10.5 L Hct 31.5 L Potassium 5.5 H Chloride 109 H Carbon Dioxide 21 L BUN 28 H Creatinine 2.94 H Est GFR ( Amer) 20 L Est GFR (Non-Af Amer) 16 L Glucose 111 H Alkaline Phosphatase 149 H Urine Protein 100 H Urine Glucose (UA) 50 H Urine Blood SMALL H Ur Leukocyte Esterase SMALL H - Diagnostic Test Radiology reviewed: Image reviewed, Reports reviewed - CT scan of the brain is normal. - EKG Interpretation by Me EKG shows normal: Sinus rhythm Rate: Normal Rhythm: NSR Additional EKG results interpreted by me: 09/25/16 18:49 EKG is normal. Critical Care Note - Critical Care Note Total time excluding time spent on procedures (mins): 40 Discharge - Discharge Clinical Impression: Hypertension Qualifiers: Hypertension type: renovascular hypertension Qualified Code(s): I15.0 - Renovascular hypertension Headache Qualifiers: Headache type: unspecified Headache chronicity pattern: chronic headache Intractability: intractable Qualified Code(s): R51 - Headache Condition: Fair Disposition: ADMITTED INPATIENT Admitting Provider: Hospitalist Unit Admitted: [facility]
[2016-09-25 17:25] LABS: PROTHROMBIN TIME 12.9 SEC (11.4-15.4)
[2016-09-25 17:26] LABS: PARTIAL THROMBOPLASTIN TIME 35.2 SEC (23.5-35.8)
[2016-09-25 17:52] LABS: ALANINE AMINOTRANSFERASE 33 U/L (9-52); ALBUMIN 3.8 g/dL (3.5-5.0); ALKALINE PHOSPHATASE 149 U/L (38-126); ANION GAP 15 (5-19); ASPARTATE AMINO TRANSFERASE 21 U/L (14-36); BILIRUBIN,TOTAL 0.7 mg/dL (0.2-1.3); BLOOD UREA NITROGEN 28 mg/dL (7-20); CALCIUM 9.2 mg/dL (8.4-10.2); CARBON DIOXIDE 21 mmol/L (22-30); CHLORIDE 109 mmol/L (98-107); CREATININE RESULT 2.94 mg/dL (0.52-1.25); GLUCOSE 111 mg/dL (75-110); POTASSIUM 5.5 mmol/L (3.6-5.0); TOTAL PROTEIN 7.8 g/dL (6.3-8.2)
[2016-09-25] MEDS ORDERED: DEXTROSE 50%-WATER 25 GM/50 ML DISP.SYRIN IV PRN ×2 (18:38)
[2016-09-25] MEDS ORDERED: DEXTROSE 40% GEL 15 GM TUBE PO PRN ×2 (18:38)
[2016-09-25] MEDS ORDERED: GLUCAGON,HUMAN RECOMB 1 MG INJ IM PRN (18:38)
[2016-09-25] MEDS ORDERED: HYDRALAZINE HCL INJ/PF 20 MG/1 ML SDV IV PRN (18:49)
[2016-09-25 18:51] LABS: APPEARANCE,URINE CLEAR; BILIRUBIN,URINE NEGATIVE (NEGATIVE); GLUCOSE, URINE 50 mg/dL (NEGATIVE); KETONES,URINE NEGATIVE (NEGATIVE); LEUKOCYTE ESTERASE,URINE SMALL (NEGATIVE); NITRITE,URINE NEGATIVE (NEGATIVE); PROTEIN,URINE 100 mg/dL (NEGATIVE); URINE SPECIFIC GRAVITY 1.008; UROBILINOGEN,URINE NEGATIVE mg/dL (<2.0)
--- NOTE | 2016-09-25 19:06 | PDOC H&P ---
History of Present Illness Admission Date/PCP: 09/25/2016 Patient complains of: High blood pressure and headache History of Present Illness: DAVID CAMARGO is a 61 year old female who presents from Dr. Law's office today where she was being seen for routine hospital follow-up after recent discharge and was found to be significantly hypertensive with blood pressure reportedly 258/117. She reports a low-grade, constant frontal headache for the last 8 days worse today described as increased intensity. It's a dull aching pain, nonradiating but with associated blurred vision and nausea; family also notes slurred speech, slowed mentation, and periods of "blacking out" lasting for about an hour and a half this afternoon when her blood pressure and headache were at their worst and seemed to resolve what her blood pressure came down after treatment. She denies numbness and tingling, unilateral weakness, facial droop, difficulty swallowing, chest pain, palpitations, swelling of her lower extremities, orthopnea and PND, and fevers or chills. She denies stiff neck or decreased range of motion in the neck. She was just discharged from this facility on 09/16/2016 after successful 4d treatment of pyelonephritis however her usual antihypertensive regimen was held at discharge due to hyperkalemia and volume depletion. She is seen by Dr. Law for stage IV chronic kidney disease not yet in need of hemodialysis. Evaluation in the emergency department showed her to be quite hypertensive this resolved with a single dose of clonidine 0.2 mg dropping her systolic pressure by 68 points and her diastolic pressure by 7 points with good improvement in her symptoms but without resolution of same. As a result we were asked to admit for further evaluation and management. Past Medical History Cardiac Medical History: Reports: Hyperlipidema, Hypertension Denies: Coronary Artery Disease, Myocardial Infarction Pulmonary Medical History: Denies: Asthma, Bronchitis, Chronic Obstructive Pulmonary Disease (COPD), Pneumonia, Tuberculosis Neurological Medical History: Denies: Seizures Endocrine Medical History: Reports: Diabetes Mellitus Type 1, Diabetes Mellitus Type 2, Hypothyroidism Musculoskeltal Medical History: Denies: Arthritis Hematology: Denies: Anemia Past Surgical History Past Surgical History: Reports: Section, Tubal Ligation Denies: Pacemaker Social History Information Source: Patient Smoking Status: Never Smoker Frequency of Alcohol Use: None Hx Recreational Drug Use: No Drugs: None Hx Prescription Drug Abuse: No - Advance Directive Resuscitation Status: Full Code Family History Family History: DM, Hypertension Parental Family History Reviewed: Yes Children Family History Reviewed: Yes Sibling(s) Family History Reviewed.: Yes Medication/Allergy Home Medications: Atorvastatin Calcium [Lipitor 20 mg Tablet] 20 mg PO QHS 09/14/16 Levothyroxine Sodium [Synthroid 0.112 mg Tablet] 224 mcg PO QAM 09/14/16 Pregabalin [Lyrica 75 mg Capsule] 75 mg PO DAILY 09/14/16 Cephalexin Monohydrate [Keflex 250 mg Capsule] 250 mg PO Q12H #20 capsule Hydrocodone/Acetaminophen [[place] 5-325 mg Tablet] 1 tab PO Q4HP PRN #20 tablet 09/16/16 Insulin Glargine,Hum.rec.anlog [Lantus Insulin 100 Unit/1 ml 10 ml] 20 unit SUBCUT Q12 #1 unit 09/16/16 Insulin Lispro [Humalog Insulin (Lispro) 100 unit/mL] 0 unit SUBCUT .SLD SCALE # 1 pe 09/16/16 Allergies/Adverse Reactions: Iodinated Contrast Media - Oral and [IV Dye, Iodine Containing] Allergy ( Intermediate, Verified 09/13/16 14:59) Vomiting morphine [Morphine] Allergy (Intermediate, Verified 09/13/16 14:59) Review of Systems All systems: reviewed and no additional remarkable complaints except as stated Constitutional: PRESENT: as per HPI, headache(s). ABSENT: chills, fever(s), weight gain, weight loss Eyes: PRESENT: as per HPI, visual disturbances Ears: ABSENT: hearing changes Cardiovascular: ABSENT: chest pain, dyspnea on exertion, edema, orthropnea, palpitations Respiratory: ABSENT: cough, hemoptysis Gastrointestinal: ABSENT: abdominal pain, constipation, diarrhea, hematemesis, hematochezia, nausea, vomiting Genitourinary: ABSENT: dysuria, hematuria Musculoskeletal: ABSENT: joint swelling Integumentary: ABSENT: rash, wounds Neurological: PRESENT: as per HPI, abnormal speech, confusion. ABSENT: abnormal gait, dizziness, focal weakness, lack of coordination, numbness, syncope, tingling, tremor(s), weakness Psychiatric: ABSENT: anxiety, depression Endocrine: ABSENT: cold intolerance, heat intolerance, polydipsia, polyuria Hematologic/Lymphatic: ABSENT: easy bleeding, easy bruising Physical Exam Vital Signs: Temp Pulse Resp BP Pulse Ox 98.1 F 66 16 119/110 H 97 09/25/16 17:47 09/25/16 17:47 09/25/16 17:47 09/25/16 18:03 09/25/16 17:47 Intake & Output 09/24/16 09/25/16 09/26/16 06:59 06:59 06:59 Weight 93.1 kg PHYSICAL EXAM GENERAL: NAD; well developed, well nourished; moderate obese; alert and oriented to person, place, time, situation HEENT: normocephalic, atraumatic; EOMI, PERRLA, no conjunctival injection, no scleral icterus; oral mucosa dry with thin white coating on tongue, normal dentition; neck supple, no LAD, normal ROM RESPIRATORY: no accessory muscle use, no increased WOB, good air entry bilaterally; no wheezes, rales, rhonchi; no inspiratory crackles CARDIO: no JVD; RRR; no systolic murmur; no tachycardia VASCULAR: no carotid bruit; no abdominal bruit; no pallor; 2+ radial, DP pulse ; normal capillary refill GI: soft; nondistended; normal bowel sounds; no hepato spleno megaly; no rebound, rigidity, guarding NEURO: normal patella reflexes; normal sensation; normal motor function; no gait abnls; no dysarthria; no nystagmus; tongue protrudes midline; normal finger to nose; able to cross midline with finger to ear MSK: 5/5 strength; normal ROM hips; ambulatory without assistance; no tenderness EXTREMITIES: no calf tender; no palpable cords in calf; no clubbing, cyanosis , pedal edema PSYCH: normal affect, normal mood SKIN: warm; moist; no petechiae; no telengectasias; no jaundice; no rash Results Laboratory Results: 09/25/16 17:00 09/25/16 17:00 09/25/16 09/25/16 09/25/16 17:00 17:00 17:50 WBC 8.5 RBC 3.83 Hgb 10.5 L Hct 31.5 L MCV 82 MCH 27.3 MCHC 33.2 RDW 13.8 Plt Count 317 Seg Neutrophils % 65.3 Lymphocytes % 27.2 Monocytes % 6.8 Eosinophils % 0.1 Basophils % 0.6 Absolute Neutrophils 5.6 Absolute Lymphocytes 2.3 Absolute Monocytes 0.6 Absolute Eosinophils 0.0 Absolute Basophils 0.1 Sodium 145.0 Potassium 5.5 H Chloride 109 H Carbon Dioxide 21 L Anion Gap 15 BUN 28 H Creatinine 2.94 H Est GFR ( Amer) 20 L Est GFR (Non-Af Amer) 16 L Glucose 111 H Calcium 9.2 Total Bilirubin 0.7 AST 21 ALT 33 Alkaline Phosphatase 149 H Total Protein 7.8 Albumin 3.8 Urine Color STRAW Urine Appearance CLEAR Urine pH 7.0 Ur Specific [place] 1.008 Urine Protein 100 H Urine Glucose (UA) 50 H Urine Ketones NEGATIVE Urine Blood SMALL H Urine Nitrite NEGATIVE Ur Leukocyte Esterase SMALL H Urine WBC (Auto) 16 Urine RBC (Auto) 0 Impressions: Head CT 09/25/16 16:04 IMPRESSION: NORMAL BRAIN CT WITHOUT CONTRAST. Assessment & Plan - Diagnosis (1) Malignant hypertension Is this a current diagnosis for this admission?: YesPlan: Admit to IMCU for close hemodynamic monitoring. Empirically start Norvasc tonight, clonidine twice a day and Lasix in the morning. Cover with hydralazine IV as needed tonight and can add IV Lopressor if needed however her heart rate is in the mid 60s to mid 70s. We'll trend 3 sets cardiac enzymes to rule out acute ischemia related. Check echocardiogram in the morning as I do not see one on the chart in the last year looking for LVH, wall motion abnormalities, etc. (2) Headache Qualifiers: Headache type: unspecified Headache chronicity pattern: acute headache Intractability: intractable Qualified Code(s): R51 - Headache Is this a current diagnosis for this admission?: YesPlan: Likely related to the above, hoping this will resolve as we could control her blood pressure. CT scan was negative however if her symptoms persist or she shows neurologic signs we'll check an MRI of the brain without contrast due to her underlying renal disease. Treat with Tylenol and oxycodone (she has tolerated oxycodone and hydrocodone in the past) (3) Chronic kidney disease (CKD) stage G3b/A1, moderately decreased glomerular filtration rate (GFR) between 30-44 mL/min/1.73 square meter and albuminuria creatinine ratio less than 30 mg/g Is this a current diagnosis for this admission?: YesPlan: Continue to monitor and consult nephrology as needed. (4) Diabetes 1.5, managed as type 1 Is this a current diagnosis for this admission?: YesPlan: Cover with sliding scale insulin while here and continue home glargine 20 units twice a day. (5) Chronic anemia Is this a current diagnosis for this admission?: YesPlan: Hemoglobin is stable. No evidence for acute blood loss. - Time Time Spent: 50 to 70 Minutes Anticipated discharge: Home Within: within 48 hours - Inpatient Certification Based on my medical assessment, after consideration of the patient's comorbidities, presenting symptoms, or acuity I expect that the services needed warrant INPATIENT care.: Yes I certify that my determination is in accordance with my understanding of Medicare's requirements for reasonable and necessary INPATIENT services [42 CFR 412.3e].: Yes Medical Necessity: Significant Comorbidiites Make Outpatient Treatment Too Risky , Need For Continuous Telemetry Monitoring, Need for Pain Control
[2016-09-25 19:09] LABS: MAGNESIUM 1.5 mg/dL (1.6-2.3); PHOSPHORUS 4.6 mg/dL (2.5-4.5)
--- NOTE | 2016-09-25 20:00 | EKG REPORT ---
SEVERITY:- NORMAL ECG - SINUS RHYTHM : Confirmed by: Kortney Young MD 25-Sep-2016 19:59:46
[2016-09-25] MEDS: OXYCODONE-ACETAMINOPHEN 5-325 MG TABLET PO PRN (20:31)
[2016-09-25] MEDS: CLONIDINE HCL 0.1 MG TABLET PO SCH (21:53)
[2016-09-25] MEDS: HEPARIN SOD (PORCINE) 5,000 UNIT/ML 1 ML SYRINGE SUBCUT SCH (21:55)
[2016-09-25] MEDS: PANTOPRAZOLE SODIUM 40 MG VIAL IV SCH (21:55)
[2016-09-25] MEDS ORDERED: AMLODIPINE BESYLATE 10 MG TABLET PO SCH (22:00)
[2016-09-25] MEDS ORDERED: MAGNESIUM SULFATE/D5W 1 G/100 ML RTUPB IV ONE (22:06)
[2016-09-25] MEDS: INSULIN LISPRO 100 UNIT/ML 3 ML VIAL SUBCUT PRN (22:09)
[2016-09-25] MEDS: INSULIN GLARGINE,HUM.REC.ANLOG 300 UNIT/3 ML INSULN.PEN SUBCUT SCH (22:09)
[2016-09-25] MEDS ORDERED: INFLUENZA ADLT QUAD (36MOS+) 2016-17 VAC 0.5 ML SYR IM PRN (22:10)
[2016-09-25] MEDS: ONDANSETRON HCL INJ/PF 4 MG/2 ML SDV IV PRN (22:33)
[2016-09-26] MEDS: HEPARIN SOD (PORCINE) 5,000 UNIT/ML 1 ML SYRINGE SUBCUT SCH ×3 (06:21→21:06)
[2016-09-26 07:25] LABS: ANION GAP 12 (5-19); BLOOD UREA NITROGEN 27 mg/dL (7-20); CARBON DIOXIDE 21 mmol/L (22-30); CHLORIDE 110 mmol/L (98-107); CREATININE RESULT 2.76 mg/dL (0.52-1.25); GLUCOSE 171 mg/dL (75-110); POTASSIUM 5.5 mmol/L (3.6-5.0); SODIUM 143.2 mmol/L (137-145)
[2016-09-26 08:07] LABS: FREE T3 2.35 pg/mL (2.77-5.27)
[2016-09-26] MEDS ORDERED: FUROSEMIDE 20 MG TABLET PO SCH (10:00)
[2016-09-26] MEDS: PANTOPRAZOLE SODIUM 40 MG VIAL IV SCH ×2 (10:42→21:06)
[2016-09-26] MEDS: INSULIN GLARGINE,HUM.REC.ANLOG 300 UNIT/3 ML INSULN.PEN SUBCUT SCH ×2 (10:43→21:22)
[2016-09-26] MEDS: CLONIDINE HCL 0.1 MG TABLET PO SCH ×2 (10:43→21:07)
[2016-09-26] MEDS: OXYCODONE-ACETAMINOPHEN 5-325 MG TABLET PO PRN (10:43)
--- NOTE | 2016-09-26 11:27 | PDOC PROGRESS REPORT ---
Subjective Progress Note for:: 09/26/16 Subjective:: DAVID CAMARGO is a 61 year old female who presents from Dr. Law's office today where she was being seen for routine hospital follow-up after recent discharge and was found to be significantly hypertensive with blood pressure reportedly 258/117. She reports a low-grade, constant frontal headache for the last 8 days worse today described as increased intensity. It's a dull aching pain, nonradiating but with associated blurred vision and nausea; family also notes slurred speech, slowed mentation, and periods of "blacking out" lasting for about an hour and a half this afternoon when her blood pressure and headache were at their worst and seemed to resolve what her blood pressure came down after treatment. She denies numbness and tingling, unilateral weakness, facial droop, difficulty swallowing, chest pain, palpitations, swelling of her lower extremities, orthopnea and PND, and fevers or chills. She denies stiff neck or decreased range of motion in the neck. She was just discharged from this facility on 09/16/2016 after successful 4d treatment of pyelonephritis however her usual antihypertensive regimen was held at discharge due to hyperkalemia and volume depletion. She is seen by Dr. Law for stage IV chronic kidney disease not yet in need of hemodialysis. Evaluation in the emergency department showed her to be quite hypertensive this resolved with a single dose of clonidine 0.2 mg dropping her systolic pressure by 68 points and her diastolic pressure by 7 points with good improvement in her symptoms but without resolution of same. As a result we were asked to admit for further evaluation and management. Initially her headache improved as her blood pressure came down during the night however, this morning she reports her headache is sneaking back up on her again. Still described as a dull aching pain, nonradiating without exacerbating or alleviating factors including no worsening with bright lights or noises and she again denies history of chronic migraines or chronic headaches. She denies neck stiffness, fevers chills, nausea vomiting however she is complaining of clumsiness in her left arm and some numbness and tingling in the tips of her fingers of the left hand. ROS: per HPI plus a total of 10 systems reviewed, pertinent positives and negatives noted above, remaining systems negative. Physical Exam Vital Signs: Temp Pulse Resp BP Pulse Ox 97.3 F 65 18 164/80 H 97 09/26/16 07:41 09/26/16 07:41 09/26/16 07:41 09/26/16 07:41 09/26/16 07:41 Intake & Output 09/25/16 09/26/16 09/27/16 06:59 06:59 06:59 Intake Total 200 Balance 200 Weight 89.9 kg PHYSICAL EXAM GENERAL: NAD; well developed, well nourished; moderate obese; alert and oriented to person, place, time, situation HEENT: normocephalic, atraumatic; EOMI, PERRLA, no conjunctival injection, no scleral icterus; oral mucosa dry with thin white coating on tongue, normal dentition; neck supple, no LAD, normal ROM RESPIRATORY: no accessory muscle use, no increased WOB, good air entry bilaterally; no wheezes, rales, rhonchi; no inspiratory crackles CARDIO: no JVD; RRR; no systolic murmur; no tachycardia VASCULAR: no carotid bruit; no abdominal bruit; no pallor; 2+ radial, DP pulse ; normal capillary refill GI: soft; nondistended; normal bowel sounds; no hepato spleno megaly; no rebound, rigidity, guarding NEURO: normal patella reflexes; normal sensation including left arm and hand; normal motor function; no gait abnl's; no dysarthria; no nystagmus; tongue protrudes midline; normal finger to nose; able to cross midline with finger to ear; 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; no tremors, no asterixis MSK: 5/5 strength; normal ROM hips; ambulatory without assistance; no tenderness EXTREMITIES: no calf tender; no palpable cords in calf; no clubbing, cyanosis , pedal edema PSYCH: normal affect, normal mood SKIN: warm; moist; no petechiae; no telengectasias; no jaundice; no rash Results Laboratory Results: 09/26/16 06:50 09/26/16 09/26/16 06:50 06:50 Sodium 143.2 Potassium 5.5 H Chloride 110 H Carbon Dioxide 21 L Anion Gap 12 BUN 27 H Creatinine 2.76 H Est GFR ( Amer) 21 L Est GFR (Non-Af Amer) 17 L Glucose 171 H Calcium 9.0 Free T4 0.92 Free T3 pg/mL 2.35 L 09/26/16 09/26/16 01:20 06:50 Troponin I < 0.012 < 0.012 Impressions: Head CT 09/25/16 16:04 IMPRESSION: NORMAL BRAIN CT WITHOUT CONTRAST. Assessment & Plan - Diagnosis (1) Malignant hypertension Is this a current diagnosis for this admission?: YesPlan: Admitted to [facility] for close hemodynamic monitoring. Continue Norvasc, clonidine twice a day and Lasix in the morning. Cover with hydralazine IV as needed and can add IV Lopressor if needed however her heart rate is in the mid 60s to mid 70s. Negative trend of 3 sets cardiac enzymes ruled out acute ischemia. Follow -up echocardiogram report as I do not see one on the chart in the last year looking for LVH, wall motion abnormalities, etc. (2) Headache Qualifiers: Headache type: unspecified Headache chronicity pattern: acute headache Intractability: intractable Qualified Code(s): R51 - Headache Is this a current diagnosis for this admission?: YesPlan: Likely related to the above, hoping this will resolve as we could control her blood pressure. CT scan was negative however since her symptoms persist and she shows neurologic signs (paresthesias) we'll check an MRI of the brain without contrast due to her underlying renal disease. Treat with Tylenol and oxycodone (she has tolerated oxycodone and hydrocodone in the past) (3) Chronic kidney disease (CKD) stage G3b/A1, moderately decreased glomerular filtration rate (GFR) between 30-44 mL/min/1.73 square meter and albuminuria creatinine ratio less than 30 mg/g Is this a current diagnosis for this admission?: YesPlan: Continue to monitor and consult nephrology as needed. (4) Diabetes 1.5, managed as type 1 Is this a current diagnosis for this admission?: YesPlan: Stable. Cover with sliding scale insulin while here and continue home glargine 20 units twice a day. (5) Chronic anemia Is this a current diagnosis for this admission?: YesPlan: Hemoglobin is stable. No evidence for acute blood loss. (6) Hypomagnesemia Is this a current diagnosis for this admission?: YesPlan: Perhaps contributing to her headache, we'll continue to monitor and replace as needed. - Time Time Spent with patient: 35 or more minutes - Plan Summary Plan Summary: Appears she will need another night in the hospital as we do not have adequate control of her blood pressures or symptoms of headache which I think is a direct complication/.
[2016-09-26] MEDS ORDERED: HYDRALAZINE HCL 50 MG TABLET PO ONE (15:00)
[2016-09-26] MEDS: INSULIN LISPRO 100 UNIT/ML 3 ML VIAL SUBCUT PRN ×2 (18:41→21:20)
[2016-09-26] MEDS: AMLODIPINE BESYLATE 10 MG TABLET PO SCH (18:42)
[2016-09-26] MEDS: ACETAMINOPHEN 325 MG TABLET PO PRN (18:43)
[2016-09-26] MEDS: HYDRALAZINE HCL 50 MG TABLET PO SCH (21:07)
[2016-09-27 04:55] LABS: ABSOLUTE LYMPHOCYTES (AUTO) 2.7 10^3/uL (0.5-4.7); ABSOLUTE MONOCYTES (AUTO) 0.5 10^3/uL (0.1-1.4); ABSOLUTE NEUT (AUTO) 3.4 10^3/uL (1.7-8.2); BASOPHILS % (AUTO) 0.5 % (0-2); EOSINOPHILS % (AUTO) 0.1 % (0-6); HEMATOCRIT 29.6 % (36.0-47.0); HEMOGLOBIN 9.5 g/dL (12.0-15.5); HGB HCT DIFFERENCE -1.1; LYMPHOCYTES % (AUTO) 41.4 % (13-45); MEAN CORPUSCULAR HEMOGLOBIN 26.9 pg (27.0-33.4); MEAN CORPUSCULAR HGB CONC 32.2 g/dL (32.0-36.0); MEAN CORPUSCULAR VOLUME 84 fl (80-97); MONOCYTES % (AUTO) 7.1 % (3-13); RED BLOOD COUNT 3.54 10^6/uL (3.72-5.28); SEGMENTED NEUTROPHILS % (AUTO) 50.9 % (42-78); WHITE BLOOD COUNT 6.6 10^3/uL (4.0-10.5)
[2016-09-27 05:20] LABS: ANION GAP 12 (5-19); BLOOD UREA NITROGEN 31 mg/dL (7-20); CALCIUM 9.2 mg/dL (8.4-10.2); CARBON DIOXIDE 22 mmol/L (22-30); CHLORIDE 108 mmol/L (98-107); CREATININE RESULT 3.25 mg/dL (0.52-1.25); GLUCOSE 131 mg/dL (75-110); MAGNESIUM 1.7 mg/dL (1.6-2.3); POTASSIUM 5.4 mmol/L (3.6-5.0); SODIUM 142.1 mmol/L (137-145)
[2016-09-27] MEDS: HYDRALAZINE HCL 50 MG TABLET PO SCH ×3 (05:36→22:32)
[2016-09-27] MEDS: AMLODIPINE BESYLATE 10 MG TABLET PO SCH ×2 (05:36→18:28)
[2016-09-27] MEDS: HEPARIN SOD (PORCINE) 5,000 UNIT/ML 1 ML SYRINGE SUBCUT SCH ×3 (05:39→22:33)
[2016-09-27] MEDS: ONDANSETRON HCL INJ/PF 4 MG/2 ML SDV IV PRN (07:37)
[2016-09-27] MEDS ORDERED: NORMAL SALINE 1000 ML 1,000 ML IV PRN (08:59)
[2016-09-27] MEDS ORDERED: BISACODYL 10 MG SUPP.RECT PR ONE (09:00)
[2016-09-27 09:53] LABS: ALBUMIN 3.2 g/dL (3.5-5.0); BILIRUBIN,TOTAL 0.6 mg/dL (0.2-1.3); LIPASE 40.7 U/L (23-300); TOTAL PROTEIN 6.8 g/dL (6.3-8.2)
[2016-09-27] MEDS: PANTOPRAZOLE SODIUM 40 MG VIAL IV SCH ×2 (10:11→22:32)
[2016-09-27] MEDS: CLONIDINE HCL 0.1 MG TABLET PO SCH ×2 (10:12→22:32)
[2016-09-27] MEDS: INSULIN GLARGINE,HUM.REC.ANLOG 300 UNIT/3 ML INSULN.PEN SUBCUT SCH ×2 (10:13→22:49)
[2016-09-27] MEDS: ACETAMINOPHEN 325 MG TABLET PO PRN ×2 (10:28→18:27)
--- NOTE | 2016-09-27 10:42 | PDOC PROGRESS REPORT ---
Subjective Progress Note for:: 09/27/16 Subjective:: DAVID CAMARGO is a 61 year old female who presents from Dr. Law's office today where she was being seen for routine hospital follow-up after recent discharge and was found to be significantly hypertensive with blood pressure reportedly 258/117. She reports a low-grade, constant frontal headache for the last 8 days worse today described as increased intensity. It's a dull aching pain, nonradiating but with associated blurred vision and nausea; family also notes slurred speech, slowed mentation, and periods of "blacking out" lasting for about an hour and a half this afternoon when her blood pressure and headache were at their worst and seemed to resolve what her blood pressure came down after treatment. She denies numbness and tingling, unilateral weakness, facial droop, difficulty swallowing, chest pain, palpitations, swelling of her lower extremities, orthopnea and PND, and fevers or chills. She denies stiff neck or decreased range of motion in the neck. She was just discharged from this facility on 09/16/2016 after successful 4d treatment of pyelonephritis however her usual antihypertensive regimen was held at discharge due to hyperkalemia and volume depletion. She is seen by Dr. Law for stage IV chronic kidney disease not yet in need of hemodialysis. Evaluation in the emergency department showed her to be quite hypertensive this resolved with a single dose of clonidine 0.2 mg dropping her systolic pressure by 68 points and her diastolic pressure by 7 points with good improvement in her symptoms but without resolution of same. As a result we were asked to admit for further evaluation and management. Initially her headache improved as her blood pressure came down during the first night not completely resolved. Still described as a dull aching pain, nonradiating without exacerbating or alleviating factors including no worsening with bright lights or noises and she again denies history of chronic migraines or chronic headaches. She denies neck stiffness, fevers chills, nausea vomiting however she complained of clumsiness in her left arm and some numbness and tingling in the tips of her fingers of the left hand that has resolved 09/27. Nursing reports she has intermittent episodes of word searching which the patient acknowledges, at times leaving her very frustrated. She denies chest pain, palpitations or vision changes, tinnitus, difficulty swallowing, unilateral weakness. She complains of nausea without vomiting, worse since she's been in the hospital. She reports no bowel movement for the last 4 days at least. She denies abdominal pain and states that she is passing gas. ROS: per HPI plus a total of 10 systems reviewed, pertinent positives and negatives noted above, remaining systems negative. Physical Exam Vital Signs: Temp Pulse Resp BP Pulse Ox 97.8 F 82 16 135/64 H 96 09/27/16 08:22 09/27/16 08:22 09/27/16 08:22 09/27/16 08:22 09/27/16 08:22 Intake & Output 09/26/16 09/27/16 09/28/16 06:59 06:59 06:59 Intake Total 200 642 Output Total 400 Balance 200 242 Weight 89.9 kg 89.9 kg PHYSICAL EXAM GENERAL: NAD; well developed, well nourished; moderate obese; alert and oriented to person, place, time, situation though she does exhibit some word searching she is eventually able to come up with appropriate responses. HEENT: normocephalic, atraumatic; EOMI, PERRLA, no conjunctival injection, no scleral icterus; oral mucosa dry with thin white coating on tongue, normal dentition; neck supple, no LAD, normal ROM RESPIRATORY: no accessory muscle use, no increased WOB, good air entry bilaterally; no wheezes, rales, rhonchi; no inspiratory crackles CARDIO: no JVD; RRR; no systolic murmur; no tachycardia VASCULAR: no carotid bruit; no abdominal bruit; no pallor; 2+ radial, DP pulse ; normal capillary refill GI: soft; nondistended; greatly diminished bowel sounds; no hepato spleno megaly; no tenderness, rebound, rigidity, guarding; fullness on palpation without firmness NEURO: normal patella reflexes; normal sensation including left arm and hand; normal motor function; no gait abnl's; no dysarthria; no nystagmus; tongue protrudes midline; normal finger to nose; able to cross midline with finger to ear; 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; no tremors, no asterixis MSK: 5/5 strength; normal ROM hips; ambulatory without assistance; no tenderness EXTREMITIES: no calf tender; no palpable cords in calf; no clubbing, cyanosis , pedal edema PSYCH: normal affect, normal mood SKIN: warm; moist; no petechiae; no telengectasias; no jaundice; no rash Results Laboratory Results: 09/27/16 04:06 09/27/16 04:28 09/27/16 09/27/16 09/27/16 04:06 04:28 04:28 WBC 6.6 RBC 3.54 L Hgb 9.5 L Hct 29.6 L MCV 84 MCH 26.9 L MCHC 32.2 RDW 14.0 Plt Count 289 Seg Neutrophils % 50.9 Lymphocytes % 41.4 Monocytes % 7.1 Eosinophils % 0.1 Basophils % 0.5 Absolute Neutrophils 3.4 Absolute Lymphocytes 2.7 Absolute Monocytes 0.5 Absolute Eosinophils 0.0 Absolute Basophils 0.0 Sodium 142.1 Potassium 5.4 H Chloride 108 H Carbon Dioxide 22 Anion Gap 12 BUN 31 H Creatinine 3.25 H Est GFR ( Amer) 17 L Est GFR (Non-Af Amer) 14 L Glucose 131 H Calcium 9.2 Magnesium 1.7 Total Bilirubin 0.6 AST 15 ALT 28 Alkaline Phosphatase 122 Total Protein 6.8 Albumin 3.2 L Lipase 40.7 09/26/16 09/26/16 01:20 06:50 Troponin I < 0.012 < 0.012 Impressions: Head CT 09/25/16 16:04 IMPRESSION: NORMAL BRAIN CT WITHOUT CONTRAST. Head MRI 09/26/16 00:00 IMPRESSION: MINIMAL STABLE WHITE MATTER DISEASE. OTHERWISE, NORMAL MRI OF THE BRAIN WITHOUT INTRAVENOUS GADOLINIUM CONTRAST. Abdomen X-Ray 09/27/16 00:00 IMPRESSION: NO RADIOGRAPHIC EVIDENCE FOR ACUTE ABDOMINAL DISEASE. Assessment & Plan - Diagnosis (1) Malignant hypertension Is this a current diagnosis for this admission?: YesPlan: Improved. Admitted to [facility] for close hemodynamic monitoring. Continue Norvasc , clonidine twice a day and hydralazine. Cover with hydralazine IV as needed and can add IV Lopressor if needed however her heart rate is in the mid 60s to mid 70s. Negative trend of 3 sets cardiac enzymes ruled out acute ischemia. Follow-up echocardiogram report as I do not see one on the chart in the last year looking for LVH, wall motion abnormalities, etc. (2) Headache Qualifiers: Headache type: unspecified Headache chronicity pattern: acute headache Intractability: intractable Qualified Code(s): R51 - Headache Is this a current diagnosis for this admission?: YesPlan: Likely related to the above, hoping this will continue to improve as we control her blood pressure. CT scan was negative however since her symptoms persisted and she showed neurologic signs (paresthesias, searching) checked an MRI of the brain without contrast due to her underlying renal disease that showed only mild microvascular disease. Treat with Tylenol and oxycodone (she has tolerated oxycodone and hydrocodone in the past) (3) Chronic kidney disease (CKD) stage G3b/A1, moderately decreased glomerular filtration rate (GFR) between 30-44 mL/min/1.73 square meter and albuminuria creatinine ratio less than 30 mg/g Is this a current diagnosis for this admission?: YesPlan: Worse with low-dose Lasix use will discontinue and give gentle fluid bolus over the next 24 hours. Continue to monitor and consult nephrology in the morning, Dr. Law and nephrology not available this weekend. (4) Diabetes 1.5, managed as type 1 Is this a current diagnosis for this admission?: YesPlan: Blood sugars poorly controlled, check hemoglobin A1c. Cover with sliding scale insulin while here and continue home glargine 20 units twice a day. (5) Chronic anemia Is this a current diagnosis for this admission?: YesPlan: Hemoglobin is stable. No evidence for acute blood loss. (6) Hypomagnesemia Is this a current diagnosis for this admission?: YesPlan: Perhaps contributing to her headache, we'll continue to monitor and replace as needed. (7) Constipation Qualifiers: Constipation type: unspecified constipation type Qualified Code(s): K59.00 - Constipation, unspecified Is this a current diagnosis for this admission?: YesPlan: Abdominal x-ray shows at least a moderate stool burden, no air-fluid levels suggestive obstruction and no dilatation of the bowel. We'll start cathartics and stool softeners. (8) Nausea alone Is this a current diagnosis for this admission?: YesPlan: Likely related to the above. Hopefully will improve after a bowel movement - Time Time Spent with patient: 35 or more minutes - Plan Summary Plan Summary: Overall turn into something quite more complicated than simple hypertension with cephalgia, in fact her clinical presentation and findings are worrisome for acute CVA but none was found on MRI. Likewise I can find no clear, defining metabolic etiology though I suspect her worsening renal failure is a contributor. We'll continue as above and adjust treatment according to conical response.
[2016-09-27] MEDS ORDERED: SENNOSIDES/DOCUSATE 8.6-50 MG 1 EACH TABLET PO ONE (11:00)
[2016-09-27] MEDS: OXYCODONE-ACETAMINOPHEN 5-325 MG TABLET PO PRN ×2 (11:43→19:29)
[2016-09-27] MEDS: SENNOSIDES/DOCUSATE 8.6-50 MG 1 EACH TABLET PO SCH (18:27)
[2016-09-27] MEDS: INSULIN LISPRO 100 UNIT/ML 3 ML VIAL SUBCUT PRN (22:53)
[2016-09-28] MEDS: AMLODIPINE BESYLATE 10 MG TABLET PO SCH ×2 (05:16→17:07)
[2016-09-28] MEDS: HYDRALAZINE HCL 50 MG TABLET PO SCH ×3 (05:16→22:44)
[2016-09-28] MEDS: HEPARIN SOD (PORCINE) 5,000 UNIT/ML 1 ML SYRINGE SUBCUT SCH ×3 (05:17→22:39)
[2016-09-28 06:55] LABS: ABSOLUTE BASOPHILS # (AUTO) 0.1 10^3/uL (0.0-0.2); ABSOLUTE LYMPHOCYTES (AUTO) 2.1 10^3/uL (0.5-4.7); ABSOLUTE MONOCYTES (AUTO) 0.5 10^3/uL (0.1-1.4); ABSOLUTE NEUT (AUTO) 4.1 10^3/uL (1.7-8.2); BASOPHILS % (AUTO) 0.8 % (0-2); HEMATOCRIT 29.4 % (36.0-47.0); HEMOGLOBIN 9.4 g/dL (12.0-15.5); HGB HCT DIFFERENCE -1.2; LYMPHOCYTES % (AUTO) 31.6 % (13-45); MEAN CORPUSCULAR HEMOGLOBIN 26.8 pg (27.0-33.4); MEAN CORPUSCULAR HGB CONC 31.9 g/dL (32.0-36.0); MEAN CORPUSCULAR VOLUME 84 fl (80-97); MONOCYTES % (AUTO) 7.4 % (3-13); RED BLOOD COUNT 3.49 10^6/uL (3.72-5.28); RED CELL DISTRIBUTION WIDTH 14.1 % (11.5-14.0); SEGMENTED NEUTROPHILS % (AUTO) 60.2 % (42-78); WHITE BLOOD COUNT 6.8 10^3/uL (4.0-10.5)
[2016-09-28] MEDS: CLONIDINE HCL 0.1 MG TABLET PO SCH ×2 (09:36→22:44)
[2016-09-28] MEDS: SENNOSIDES/DOCUSATE 8.6-50 MG 1 EACH TABLET PO SCH ×2 (09:37→17:07)
[2016-09-28] MEDS: PANTOPRAZOLE SODIUM 40 MG VIAL IV SCH (09:37)
[2016-09-28] MEDS: INSULIN GLARGINE,HUM.REC.ANLOG 300 UNIT/3 ML INSULN.PEN SUBCUT SCH ×2 (09:38→22:40)
[2016-09-28] MEDS: LACTULOSE SYRUP 20 GM/30 ML UDCUP PO PRN (11:24)
[2016-09-28] MEDS ORDERED: ASPIRIN 81 MG TABLET, ENT COATED PO ONE (13:00)
--- NOTE | 2016-09-28 17:21 | PDOC PROGRESS REPORT ---
Subjective Progress Note for:: 09/28/16 Subjective:: DAVID CAMARGO is a 61 year old female who presents from Dr. Law's office where she was being seen for routine hospital follow-up with recent discharge after treatment for pyelonephritis and was found to be significantly hypertensive with blood pressure reportedly 258/117. She reports a low-grade, constant frontal headache for the last 8 days worse today described as increased intensity. It's a dull aching pain, nonradiating but with associated blurred vision and nausea; family also notes slurred speech, slowed mentation, and periods of "phasing out" lasting for about an hour and a half this afternoon when her blood pressure and headache were at their worst and seemed to resolve when her blood pressure came down after treatment. She denies numbness and tingling, unilateral weakness, facial droop, difficulty swallowing , chest pain, palpitations, swelling of her lower extremities, orthopnea and PND , and fevers or chills. She denies stiff neck or decreased range of motion in the neck. She was just discharged from this facility on 09/16/2016 after successful 4d inpt treatment of pyelonephritis and sent home on continued abx; however her usual antihypertensive regimen was held at discharge due to hyperkalemia and volume depletion. She is seen by Dr. Law for stage IV chronic kidney disease not yet in need of hemodialysis. Evaluation in the emergency department showed her to be quite hypertensive, this improved with a single dose of clonidine 0.2 mg dropping her systolic pressure by 68 points and her diastolic pressure by 7 points with good improvement in her symptoms but without resolution of same. As a result we were asked to admit for further evaluation and management. Initially her headache improved as her blood pressure came down during the first night though not completely resolved. Still described as a dull aching pain, nonradiating without exacerbating or alleviating factors including no worsening with bright lights or noises and she again denies history of chronic migraines or chronic headaches. She denies neck stiffness, fevers chills, nausea vomiting however she complained of clumsiness in her left arm and some numbness and tingling in the tips of her fingers of the left hand. she has intermittent episodes of word searching which the patient acknowledges, at times leaving her very frustrated. she continues to c/o dizziness both lying still and standing or moving, no difference. MRI brain without contrast shows only mild microvascular disease but no acute infarct. carotid dopplers show <70 % stenosis and non calcified plaque on the left internal carotid, high dose stating and low dose ASA started 09/28/16. She denies chest pain, palpitations or vision changes, tinnitus, difficulty swallowing. She complains of nausea without vomiting, worse since she's been in the hospital. She denies abdominal pain and states that she is passing gas. She reported no bowel movement for the last 4 days at least. bowel regimen added but with minimal results to date. ROS: per HPI plus a total of 10 systems reviewed, pertinent positives and negatives noted above, remaining systems negative. Physical Exam Vital Signs: Temp Pulse Resp BP Pulse Ox 97.5 F 68 18 126/56 H 98 09/28/16 16:42 09/28/16 16:42 09/28/16 16:42 09/28/16 16:42 09/28/16 16:42 Intake & Output 09/27/16 09/28/16 09/29/16 06:59 06:59 06:59 Intake Total 642 2441 120 Output Total 400 900 0 Balance 242 1541 120 Weight 89.9 kg 89.9 kg PHYSICAL EXAM GENERAL: NAD; well developed, well nourished; moderate obese; alert and oriented to person, place, time, situation ; previous word searching no longer evident. HEENT: normocephalic, atraumatic, PERRLA, no conjunctival injection, no scleral icterus; oral mucosa dry with thin white coating on tongue; neck supple , no LAD, normal ROM; gaze palsy evident with disconjugate gaze when looking extreme left and up causing HAGER and dizziness, RESPIRATORY: no accessory muscle use, no increased WOB, good air entry bilaterally; no wheezes, rales, rhonchi; no inspiratory crackles CARDIO: no JVD; RRR; no systolic murmur; no tachycardia VASCULAR: no carotid bruit; no abdominal bruit; no pallor; 2+ radial, DP pulse ; normal capillary refill GI: soft; nondistended; diminished bowel sounds; no hepato spleno megaly; no tenderness, rebound, rigidity, guarding; fullness on palpation without firmness NEURO: normal patella reflexes; normal sensation including left arm and hand; normal motor function; no gait abnl's; no dysarthria; no marquis nystagmus; tongue protrudes midline; normal finger to nose; able to cross midline with finger to ear; good rn transitional symmetric; no tremors, no asterixis MSK: 5/5 strength; normal ROM hips; ambulatory without assistance; no tenderness EXTREMITIES: no calf tender; no palpable cords in calf; no clubbing, cyanosis , pedal edema PSYCH: normal affect, normal mood SKIN: warm; moist; no petechiae; no telengectasias; no jaundice; no rash Results Laboratory Results: 09/28/16 06:30 09/27/16 04:28 09/28/16 06:30 WBC 6.8 RBC 3.49 L Hgb 9.4 L Hct 29.4 L MCV 84 MCH 26.8 L MCHC 31.9 L RDW 14.1 H Plt Count 226 Seg Neutrophils % 60.2 Lymphocytes % 31.6 Monocytes % 7.4 Eosinophils % 0.0 Basophils % 0.8 Absolute Neutrophils 4.1 Absolute Lymphocytes 2.1 Absolute Monocytes 0.5 Absolute Eosinophils 0.0 Absolute Basophils 0.1 09/25/16 22:50 Nasophary (Mrsa Only) MRSA Surveillance Culture - Final NO MRSA RECOVERED 09/26/16 09/26/16 01:20 06:50 Troponin I < 0.012 < 0.012 Impressions: Head CT 09/25/16 16:04 IMPRESSION: NORMAL BRAIN CT WITHOUT CONTRAST. Head MRI 09/26/16 00:00 IMPRESSION: MINIMAL STABLE WHITE MATTER DISEASE. OTHERWISE, NORMAL MRI OF THE BRAIN WITHOUT INTRAVENOUS GADOLINIUM CONTRAST. Abdomen X-Ray 09/27/16 00:00 IMPRESSION: NO RADIOGRAPHIC EVIDENCE FOR ACUTE ABDOMINAL DISEASE. Carotid Doppler Study 09/28/16 11:42 IMPRESSION: No flow significant stenosis at the right carotid bifurcation. 50 to 69% diameter narrowing left proximal ICA related to non calcific plaque at the origin. This represents progression of disease compared to 11/12/2015 carotid Doppler Assessment & Plan - Diagnosis (1) Malignant hypertension Is this a current diagnosis for this admission?: YesPlan: Resolved on current regimen. Admitted to [facility] for close hemodynamic monitoring. Continue Norvasc, clonidine twice a day and hydralazine. Cover with hydralazine IV as needed and can add IV Lopressor if needed however her heart rate is in the mid 60s to mid 70s. Negative trend of 3 sets cardiac enzymes ruled out acute ischemia. Follow-up echocardiogram report as I still do not see one on the chart. (2) Headache Qualifiers: Headache type: unspecified Headache chronicity pattern: acute headache Intractability: intractable Qualified Code(s): R51 - Headache Is this a current diagnosis for this admission?: YesPlan: Likely related to the above, continues to improve as we control her blood pressure. CT scan was negative however since her symptoms persisted and she showed neurologic signs (paresthesias, word searching) checked an MRI of the brain without contrast due to her underlying renal disease that showed only mild microvascular disease. Treat with Tylenol and oxycodone (she has tolerated oxycodone and hydrocodone in the past). Her Doppler show moderate plaque burden in the left internal carotid artery, started high-dose statin and low-dose aspirin therapy. (3) Chronic kidney disease (CKD) stage G3b/A1, moderately decreased glomerular filtration rate (GFR) between 30-44 mL/min/1.73 square meter and albuminuria creatinine ratio less than 30 mg/g Is this a current diagnosis for this admission?: YesPlan: Worsened with low-dose Lasix use, discontinued and given gentle fluid bolus over the last 24 hours. Continue to monitor and consulted nephrology, Dr. Law for his input. (4) Diabetes 1.5, managed as type 1 Is this a current diagnosis for this admission?: YesPlan: Blood sugars poorly controlled, hemoglobin A1c however is excellent at 5.7. Cover with sliding scale insulin while here and continue home glargine 20 units twice a day. (5) Chronic anemia Is this a current diagnosis for this admission?: YesPlan: Hemoglobin is stable. No evidence for acute blood loss. (6) Hypomagnesemia Is this a current diagnosis for this admission?: YesPlan: Perhaps contributing to her headache, we'll continue to monitor and replace as needed. (7) Constipation Qualifiers: Constipation type: unspecified constipation type Qualified Code(s): K59.00 - Constipation, unspecified Is this a current diagnosis for this admission?: YesPlan: Abdominal x-ray shows at least a moderate stool burden, no air-fluid levels suggestive obstruction and no dilatation of the bowel. Continue cathartics and stool softeners. (8) Nausea alone Is this a current diagnosis for this admission?: YesPlan: Improving some today (9) Conjugate gaze palsy Is this a current diagnosis for this admission?: YesPlan: Unclear etiology, I still wonder if she didn't suffer a small occipital stroke not evident on MRI especially in light of the internal carotid artery plaque. I still think it's prudent to treat with high-dose statin and aspirin therapy. Check orthostatic vitals. (10) PAD (peripheral artery disease) Is this a current diagnosis for this admission?: YesPlan: As noted on carotid Dopplers. Treat As above. - Time Time Spent with patient: 35 or more minutes Medications reviewed and adjusted accordingly: Yes Anticipated discharge: Home Within: within 24 hours - Plan Summary Plan Summary: Follow-up on renal function and electrolytes in the morning. Hopefully we can get more consistent bowel movements through the course of the day today which should improve her nausea. Follow-up on orthostatic vital signs today and again tomorrow. If headache resolved and dizziness improved enough that she can safely be discharged home and despite doing so as early as tomorrow. I suspect at least part of the dizziness can be attributed to normalization of her blood pressure.
--- NOTE | 2016-09-28 18:08 | XCELERA REPORT ---
[address] [address] Transthoracic Echocardiogram Report Name: DAVID CAMARGO Age: 61 yrs Gender: Female : 1955 Patient Status: Inpatient Patient Location: [id number]\A Study Date: 09/28/2016 10:18 AM Height: 62 in Weight: 205 lb BSA: 1.9 m2 Procedure: A complete two-dimensional transthoracic echocardiogram was performed (2D, M-mode, spectral and color flow Doppler). The study was technically adequate with some images being suboptimal in quality. Reason For Study: hypertension Ordering Physician: DONG [place] Performed By: Halima Hale Interpretation Summary The left ventricular ejection fraction is normal. There is borderline concentric left ventricular hypertrophy. The left ventricle is grossly normal size. Doppler measurements suggest pseudonormalized left ventricular relaxation, which is associated with grade II/IV or mild to moderate diastolic dysfunction Wall motion cannot be accurately commented on, but no definite regional wall motion abnormalities noted. The right ventricular systolic function is normal. The left atrium is mildly dilated. The right atrium is normal in size There is a trace to mild amount of mitral regurgitation There is no mitral valve stenosis. No aortic regurgitation is present. There is no aortic valve stenosis There is a trace or physiologic amount of tricuspid regurgitation Tricuspid regurgitation jet envelope not well defined to measure RV systolic pressure accurately. The aortic root is not well visualized but is probably normal size. The inferior vena cava was not well visualized There is no pericardial effusion. MMode/2D Measurements \T\ Calculations RVDd: 3.3 cm LVIDd: 4.3 cm FS: 40.4 % Ao root diam: 2.5 cm IVSd: 1.0 cm LVIDs: 2.6 cm EDV(Teich): 85.2 ml LVPWd: 1.00 cm ESV(Teich): 24.4 ml Ao root area: 5.1 cm2 EF(Teich): 71.4 % LA dimension: 4.0 cm Doppler Measurements \T\ Calculations MV E max elia: MV P1/2t max elia: Ao V2 max: LV V1 max P.3 cm/sec 95.3 cm/sec 134.5 cm/sec 6.1 mmHg MV A max elia: MV P1/2t: 70.5 msec Ao max PG: LV V1 max: 101.7 cm/sec 7.2 mmHg 123.4 cm/sec MV E/A: 0.94 MVA(P1/2t): 3.1 cm2 MV dec slope: 395.8 cm/sec2 MV dec time: 0.23 sec PA V2 max: TR max elia: 93.3 cm/sec 255.2 cm/sec PA max P.5 mmHgTR max P.0 mmHg Left Ventricle The left ventricle is grossly normal size. There is borderline concentric left ventricular hypertrophy. The left ventricular ejection fraction is normal. Doppler measurements suggest pseudonormalized left ventricular relaxation, which is associated with grade II/IV or mild to moderate diastolic dysfunction. Wall motion cannot be accurately commented on, but no definite regional wall motion abnormalities noted. Right Ventricle The right ventricle is normal in size, thickness and function. There is normal right ventricular wall thickness. The right ventricular systolic function is normal. Atria The right atrium is normal in size. The left atrium is mildly dilated. Interarterial septum not well visualized and not well dopplered. Cannot comment on ASD/PFO presence. Mitral Valve The mitral valve is grossly normal. There is no mitral valve stenosis. There is a trace to mild amount of mitral regurgitation. Aortic Valve The aortic valve is grossly normal. There is no aortic valve stenosis. No aortic regurgitation is present. Tricuspid Valve The tricuspid valve is not well visualized, but is grossly normal. There is no tricuspid stenosis. There is a trace or physiologic amount of tricuspid regurgitation. Tricuspid regurgitation jet envelope not well defined to measure RV systolic pressure accurately. Pulmonic Valve The pulmonic valve is not well visualized. Great Vessels The aortic root is not well visualized but is probably normal size. The inferior vena cava was not well visualized. Effusions There is no pericardial effusion. : DONG [place] > Vladislav Hercules
[2016-09-28] MEDS: ATORVASTATIN CALCIUM 80 MG TABLET PO SCH (22:44)
[2016-09-29 05:22] LABS: ABSOLUTE LYMPHOCYTES (AUTO) 2.3 10^3/uL (0.5-4.7); ABSOLUTE MONOCYTES (AUTO) 0.4 10^3/uL (0.1-1.4); ABSOLUTE NEUT (AUTO) 3.3 10^3/uL (1.7-8.2); BASOPHILS % (AUTO) 0.6 % (0-2); EOSINOPHILS % (AUTO) 0.2 % (0-6); HEMATOCRIT 27.4 % (36.0-47.0); HGB HCT DIFFERENCE -0.4; MEAN CORPUSCULAR HEMOGLOBIN 27.6 pg (27.0-33.4); MEAN CORPUSCULAR HGB CONC 32.9 g/dL (32.0-36.0); MEAN CORPUSCULAR VOLUME 84 fl (80-97); MONOCYTES % (AUTO) 6.7 % (3-13); RED BLOOD COUNT 3.28 10^6/uL (3.72-5.28); RED CELL DISTRIBUTION WIDTH 14.3 % (11.5-14.0); SEGMENTED NEUTROPHILS % (AUTO) 54.5 % (42-78); WHITE BLOOD COUNT 6.1 10^3/uL (4.0-10.5)
[2016-09-29 05:46] LABS: ALANINE AMINOTRANSFERASE 21 U/L (9-52); ALBUMIN 3.4 g/dL (3.5-5.0); ALKALINE PHOSPHATASE 105 U/L (38-126); ANION GAP 12 (5-19); ASPARTATE AMINO TRANSFERASE 15 U/L (14-36); BILIRUBIN,TOTAL 0.5 mg/dL (0.2-1.3); BLOOD UREA NITROGEN 28 mg/dL (7-20); CALCIUM 9.1 mg/dL (8.4-10.2); CARBON DIOXIDE 21 mmol/L (22-30); CHLORIDE 110 mmol/L (98-107); CREATININE RESULT 3.77 mg/dL (0.52-1.25); GLUCOSE 62 mg/dL (75-110); MAGNESIUM 1.7 mg/dL (1.6-2.3); PHOSPHORUS 4.7 mg/dL (2.5-4.5); POTASSIUM 5.1 mmol/L (3.6-5.0); SODIUM 142.9 mmol/L (137-145); TOTAL PROTEIN 6.5 g/dL (6.3-8.2)
[2016-09-29] MEDS: HEPARIN SOD (PORCINE) 5,000 UNIT/ML 1 ML SYRINGE SUBCUT SCH ×3 (06:06→21:38)
[2016-09-29] MEDS: HYDRALAZINE HCL 50 MG TABLET PO SCH ×2 (06:08→14:54)
[2016-09-29] MEDS: AMLODIPINE BESYLATE 10 MG TABLET PO SCH (06:08)
[2016-09-29] MEDS ORDERED: PHARMACY COMMUNICATION ORDER MC NR (08:00)
[2016-09-29] MEDS: ASPIRIN 81 MG TABLET, ENT COATED PO SCH (09:52)
[2016-09-29] MEDS: SENNOSIDES/DOCUSATE 8.6-50 MG 1 EACH TABLET PO SCH ×2 (09:52→18:18)
[2016-09-29] MEDS: CLONIDINE HCL 0.1 MG TABLET PO SCH (09:52)
[2016-09-29] MEDS: PREGABALIN 75 MG CAPSULE PO SCH ×2 (09:52→18:18)
[2016-09-29] MEDS: INSULIN GLARGINE,HUM.REC.ANLOG 300 UNIT/3 ML INSULN.PEN SUBCUT SCH (09:53)
[2016-09-29] MEDS ORDERED: LEVOTHYROXINE SODIUM 0.112 MG TABLET PO ONE (10:00)
--- NOTE | 2016-09-29 12:42 | PDOC CONSULTATION ---
Consultation Consult Date: 09/29/16 Consult reason:: Acute on chronic kidney disease and severe hypertension History of Present Illness Admission Date/PCP: 09/25/16 18:38 History of Present Illness: DAVID CAMARGO is a 61 year old female who was sent from my office last wednesday where she was being seen for routine hospital follow-up after recent discharge and was found to be significantly hypertensive with blood pressure reportedly 258/117. She did not respond to p.o. clonidine 0.1 mg given in my office. And she was advised to go to the ER. She reports a low-grade, constant frontal headache for the last 8 days and getting worse. It's a dull aching pain, nonradiating but with associated blurred vision and nausea; family also notes slurred speech, slowed mentation, and periods of "blacking out" lasting for about an hour and a half this afternoon when her blood pressure and headache were at their worst and seemed to resolve what her blood pressure came down after treatment. She denies numbness and tingling, unilateral weakness, facial droop, difficulty swallowing, chest pain, palpitations, swelling of her lower extremities, orthopnea and PND, and fevers or chills. She denies stiff neck or decreased range of motion in the neck. She was just discharged from this facility on 09/16/2016 after successful 4d treatment of pyelonephritis however her usual antihypertensive regimen was held at discharge due to hyperkalemia and volume depletion. Evaluation in the emergency department showed her to be quite hypertensive this resolved with a single dose of clonidine 0.2 mg dropping her systolic pressure by 68 points and her diastolic pressure by 7 points with good improvement in her symptoms but without resolution of same. She still continues to have intermittent headaches. She describes this as a pressure-like feeling which is worse when she puts her head down. She has a dry cough with no expectoration. No fever chills. She does not have any nasal discharge. She still does not feel her usual self. She has had a renal ultrasound done which shows unilateral Left renal atrophy with compensatory hypertrophy. Other evaluations of brain is quite unremarkable but for some white matter disease. Nasal sinuses were unremarkable.Blood pressures are well controlled at the moment and they are in the 1 teens to 120s systolics. Past Medical History Cardiac Medical History: Reports: Hyperlipidemia, Hypertension-primary Denies: Coronary Artery Disease, Myocardial Infarction Pulmonary Medical History: Denies: Asthma, Bronchitis, Chronic Obstructive Pulmonary Disease (COPD), Pneumonia, Tuberculosis Neurological Medical History: Denies: Seizures Endocrine Medical History: Reports: Diabetes Mellitus Type 2, Hypothyroidism Renal/ Medical History: Reports: Chronic Kidney Disease Stage III - /4 with a base creatinine of around 2.5. Musculoskeltal Medical History: Denies: Arthritis Psychiatric Medical History: Reports: Depression Past Surgical History Past Surgical History: Reports: Section, Tubal Ligation Denies: Pacemaker Social History Smoking Status: Never Smoker Frequency of Alcohol Use: None Hx Recreational Drug Use: No Drugs: None Hx Prescription Drug Abuse: No - Advance Directive Resuscitation Status: Full Code Family History Parental Family History Reviewed: Yes - Negative for ESRD Children Family History Reviewed: No Sibling(s) Family History Reviewed.: No Medication/Allergy Home Medications: Albiglutide [Tanzeum] 50 mg SQ WE@1000 09/26/16 Atorvastatin Calcium [Lipitor 20 mg Tablet] 20 mg PO QHS 09/26/16 Cyanocobalamin (Vitamin B-12) [Vitamin B-12 Inj 1000 Mcg/1 ml Vial] 1,000 mcg SQ [id number] 09/26/16 Ferrous Sulfate [Feosol 325 mg Tablet] 325 mg PO BID 09/26/16 Hydrochlorothiazide [Hydrodiuril 25 mg Tablet] 25 mg PO DAILY 09/26/16 Insulin Glargine,Hum.rec.anlog [Lantus Solostar] 20 units SQ QHS 09/26/16 Insulin Lispro [Humalog Insulin (Lispro) 100 unit/mL] 0 units SQ TIDP PRN Levothyroxine Sodium [Synthroid 0.025 mg Tablet] 0.025 mg PO QAM 09/26/16 Levothyroxine Sodium [Synthroid 0.1 mg Tablet] 0.1 mg PO QAM 09/26/16 Levothyroxine Sodium [Synthroid 0.112 mg Tablet] 0.112 mg PO QAM 09/26/16 Pregabalin [Lyrica 75 mg Capsule] 75 mg PO BID 09/26/16 Allergies/Adverse Reactions: Iodinated Contrast Media - Oral and [IV Dye, Iodine Containing] Allergy ( Intermediate, Verified 09/13/16 14:59) Vomiting morphine [Morphine] Allergy (Intermediate, Verified 09/13/16 14:59) Review of Systems Review of Systems: Constitutional: PRESENT: as per HPI. ABSENT: chills, fever(s), weight gain, weight loss Eyes: ABSENT: visual disturbances Ears: ABSENT: hearing changes Cardiovascular: ABSENT: chest pain, dyspnea on exertion, edema, orthropnea, palpitations Respiratory: ABSENT: cough, hemoptysis Gastrointestinal: ABSENT: abdominal pain, constipation, diarrhea, hematemesis, hematochezia, nausea, vomiting Genitourinary: ABSENT: dysuria, hematuria Musculoskeletal: ABSENT: joint swelling Integumentary: ABSENT: rash, wounds Neurological: ABSENT: abnormal gait, abnormal speech, focal weakness, syncope Psychiatric: ABSENT: anxiety, depression, homicidal ideation, suicidal ideation Endocrine: ABSENT: cold intolerance, heat intolerance, menstrual abnormalities, polydipsia, polyuria Hematologic/Lymphatic: ABSENT: easy bleeding, easy bruising, lymphadenopathy Physical Exam Vital Signs: Temp Pulse Resp BP Pulse Ox 98.3 F 66 20 119/56 L 99 09/29/16 04:17 09/29/16 04:17 09/29/16 04:17 09/29/16 04:17 09/29/16 04:17 Intake & Output 09/28/16 09/29/16 09/30/16 06:59 06:59 06:59 Intake Total 2441 1587 Output Total 900 800 Balance 1541 787 Weight 89.9 kg 89.5 kg 89.5 kg General appearance: PRESENT: no acute distress Eye exam: PRESENT: conjunctiva pink, EOMI, PERRLA. ABSENT: nystagmus, periorbital swelling Mouth exam: PRESENT: moist, neck supple Neck exam: ABSENT: lymphadenopathy, meningismus, tenderness - However she had tenderness over the maxillary sinus on both sides., thyromegaly, tracheal deviation Respiratory exam: PRESENT: clear to auscultation grupo, symmetrical. ABSENT: crackles, rhonchi GI/Abdominal exam: PRESENT: normal bowel sounds, soft. ABSENT: ascites, firm, guarding, tenderness Extremities exam: ABSENT: pedal edema Neurological exam: PRESENT: awake, oriented to person, oriented to place, oriented to time Psychiatric exam: PRESENT: anxious Skin exam: PRESENT: dry. ABSENT: erythema, mottled, rash Results Laboratory Results: 09/29/16 04:20 09/29/16 04:20 09/29/16 09/29/16 04:20 04:20 WBC 6.1 RBC 3.28 L Hgb 9.0 L Hct 27.4 L MCV 84 MCH 27.6 MCHC 32.9 RDW 14.3 H Plt Count 237 Seg Neutrophils % 54.5 Lymphocytes % 38.0 Monocytes % 6.7 Eosinophils % 0.2 Basophils % 0.6 Absolute Neutrophils 3.3 Absolute Lymphocytes 2.3 Absolute Monocytes 0.4 Absolute Eosinophils 0.0 Absolute Basophils 0.0 Sodium 142.9 Potassium 5.1 H Chloride 110 H Carbon Dioxide 21 L Anion Gap 12 BUN 28 H Creatinine 3.77 H Est GFR ( Amer) 15 L Est GFR (Non-Af Amer) 12 L Glucose 62 L Calcium 9.1 Phosphorus 4.7 H Magnesium 1.7 Total Bilirubin 0.5 AST 15 ALT 21 Alkaline Phosphatase 105 Total Protein 6.5 Albumin 3.4 L 09/25/16 22:50 Nasophary (Mrsa Only) MRSA Surveillance Culture - Final NO MRSA RECOVERED 09/26/16 09/26/16 01:20 06:50 Troponin I < 0.012 < 0.012 Impressions: Head CT 09/25/16 16:04 IMPRESSION: NORMAL BRAIN CT WITHOUT CONTRAST. Head MRI 09/26/16 00:00 IMPRESSION: MINIMAL STABLE WHITE MATTER DISEASE. OTHERWISE, NORMAL MRI OF THE BRAIN WITHOUT INTRAVENOUS GADOLINIUM CONTRAST. Abdomen X-Ray 09/27/16 00:00 IMPRESSION: NO RADIOGRAPHIC EVIDENCE FOR ACUTE ABDOMINAL DISEASE. Carotid Doppler Study 09/28/16 11:42 IMPRESSION: No flow significant stenosis at the right carotid bifurcation. 50 to 69% diameter narrowing left proximal ICA related to non calcific plaque at the origin. This represents progression of disease compared to 11/12/2015 carotid Doppler Renal Ultrasound 09/29/16 00:00 IMPRESSION: Small right kidney with multiple small intrarenal nonobstructive calculi. No right hydronephrosis. Left kidney unremarkable Bladder decompressed, not well seen Assessment & Plan - Diagnosis (1) Headache Qualifiers: Headache type: unspecified Headache chronicity pattern: acute headache Intractability: intractable Qualified Code(s): R51 - Headache Is this a current diagnosis for this admission?: YesPlan: So far evaluations are negative. She has evidences of sinus tenderness suggestive of possible sinusitis even though the paranasal sinuses on the MRI was unremarkable. I am going to empirically treat her with pseudo-fed 50 mg every 8 hours for 2 days see response. Discussed with Dr. Mcqueen treating hospitalist. (2) Malignant hypertension Is this a current diagnosis for this admission?: YesPlan: Blood pressure is well controlled and in fact control a bit too tightly. Given her malignant hypertension I would like to keep her systolic around 140-160. With that in mind we will cut back her hydralazine to 25 every 8 hours. I would also would not mind cutting her clonidine to 0.1 mg nightly as it might also be a factor in feeling unwell. Discussed with Dr. Mcqueen hospitalist. (3) Chronic kidney disease (CKD) stage G3b/A1, moderately decreased glomerular filtration rate (GFR) between 30-44 mL/min/1.73 square meter and albuminuria creatinine ratio less than 30 mg/g Is this a current diagnosis for this admission?: YesPlan: She has acute worsening of her CKD. She has evidences to indicate possible left renal artery stenosis as evidenced by the left renal atrophy. She is now CKD stage IV. No acute indications for renal replacements. No evidences of uremia. Continue to monitor and will repeat labs as an outpatient in 2 weeks time post discharge. Discussed with patient.We will also order a 24-hour creatinine clearance while she is in the hospital. (4) Acute kidney injury superimposed on chronic kidney disease Plan: Presenting as malignant hypertension. It does not look like it is improving. We will monitor this while she is inpatient and then as an outpatient 2 weeks post discharge. No acute indications for renal replacement. (5) Chronic anemia Is this a current diagnosis for this admission?: YesPlan: We will order iron studies and later evaluate her for the need for erythropoietin.
[2016-09-29] MEDS ORDERED: CYCLOBENZAPRINE HCL 10 MG TABLET PO PRN (12:56)
[2016-09-29] MEDS: PSEUDOEPHEDRINE HCL 30 MG TABLET PO SCH ×2 (14:55→21:40)
[2016-09-29] MEDS: INSULIN LISPRO 100 UNIT/ML 3 ML VIAL SUBCUT PRN (18:18)
--- NOTE | 2016-09-29 18:23 | PDOC PROGRESS REPORT ---
Subjective Progress Note for:: 09/29/16 Subjective:: Patient's blood pressure is greatly improved. She does report headache that is midline frontal. She reports sinus tenderness. Patient denies chest pain, shortness of breath, abdominal pain, nausea, vomiting, fevers, chills, diarrhea , constipation. Physical Exam Vital Signs: Temp Pulse Resp BP Pulse Ox 98.3 F 66 20 119/56 L 99 09/29/16 04:17 09/29/16 04:17 09/29/16 04:17 09/29/16 04:17 09/29/16 04:17 Intake & Output 09/28/16 09/29/16 09/30/16 06:59 06:59 06:59 Intake Total 2441 1587 Output Total 900 800 Balance 1541 787 Weight 89.9 kg 89.5 kg Exam: General: Awake alert and oriented x4, no acute respiratory distress HEENT: AT/NC, PERRL, Left eye CN III palsy pupil sparing, frontal sinuses tender to palpation, oropharynx is moist with no erythema, pink, no scleral icterus, no conjunctival injection Neck: No JVD, trachea midline Chest: Clear to auscultation bilaterally, no wheezes rhonchi or rales CV: Regular rate and rhythm, normal S1 and S2, no rub or gallop Abdomen: Soft, nontender to palpation, nondistended, active bowel sounds; no rebound, rigidity, or guarding Extremities: No cyanosis, clubbing or edema Neuro: Cranial nerves IV through XII are grossly intact without focal deficits; pupil sparing left cranial nerve III, awake alert and oriented x4; strength 5 out 5 bilateral upper and lower extremities Psych: Normal mood and affect Results Laboratory Results: 09/29/16 04:20 09/29/16 04:20 09/29/16 09/29/16 04:20 04:20 WBC 6.1 RBC 3.28 L Hgb 9.0 L Hct 27.4 L MCV 84 MCH 27.6 MCHC 32.9 RDW 14.3 H Plt Count 237 Seg Neutrophils % 54.5 Lymphocytes % 38.0 Monocytes % 6.7 Eosinophils % 0.2 Basophils % 0.6 Absolute Neutrophils 3.3 Absolute Lymphocytes 2.3 Absolute Monocytes 0.4 Absolute Eosinophils 0.0 Absolute Basophils 0.0 Sodium 142.9 Potassium 5.1 H Chloride 110 H Carbon Dioxide 21 L Anion Gap 12 BUN 28 H Creatinine 3.77 H Est GFR ( Amer) 15 L Est GFR (Non-Af Amer) 12 L Glucose 62 L Calcium 9.1 Phosphorus 4.7 H Magnesium 1.7 Total Bilirubin 0.5 AST 15 ALT 21 Alkaline Phosphatase 105 Total Protein 6.5 Albumin 3.4 L 09/25/16 22:50 Nasophary (Mrsa Only) MRSA Surveillance Culture - Final NO MRSA RECOVERED 09/26/16 09/26/16 01:20 06:50 Troponin I < 0.012 < 0.012 Impressions: Head CT 09/25/16 16:04 IMPRESSION: NORMAL BRAIN CT WITHOUT CONTRAST. Head MRI 09/26/16 00:00 IMPRESSION: MINIMAL STABLE WHITE MATTER DISEASE. OTHERWISE, NORMAL MRI OF THE BRAIN WITHOUT INTRAVENOUS GADOLINIUM CONTRAST. Abdomen X-Ray 09/27/16 00:00 IMPRESSION: NO RADIOGRAPHIC EVIDENCE FOR ACUTE ABDOMINAL DISEASE. Carotid Doppler Study 09/28/16 11:42 IMPRESSION: No flow significant stenosis at the right carotid bifurcation. 50 to 69% diameter narrowing left proximal ICA related to non calcific plaque at the origin. This represents progression of disease compared to 11/12/2015 carotid Doppler Assessment & Plan - Diagnosis (1) Headache Qualifiers: Headache type: unspecified Headache chronicity pattern: acute headache Intractability: not intractable Qualified Code(s): R51 - Headache Is this a current diagnosis for this admission?: YesPlan: Believe this is likely related to her underlying hypertensive emergency as well as sinusitis. Patient has been started on Flonase and Sudafed and has when necessary Tylenol, Flexeril, and Percocet. (2) Malignant hypertension Is this a current diagnosis for this admission?: YesPlan: Goal blood pressure for this patient be is should be a systolic of 140. Will decrease clonidine to 0.1 mg by mouth daily at bedtime. Patient currently on Norvasc, clonidine, hydralazine. No Rajat/ARB secondary to renal failure. (3) PAD (peripheral artery disease) Is this a current diagnosis for this admission?: Yes (4) Chronic kidney disease (CKD) stage G3b/A1, moderately decreased glomerular filtration rate (GFR) between 30-44 mL/min/1.73 square meter and albuminuria creatinine ratio less than 30 mg/g Is this a current diagnosis for this admission?: YesPlan: Patient has acute on chronic kidney disease likely secondary to her uncontrolled hypertension. Appreciate nephrology input. 0.4 urine collection currently underway. (5) Diabetes 1.5, managed as type 1 Is this a current diagnosis for this admission?: YesPlan: We'll decrease patient's at bedtime Lantus to 18 units. Continue twice a day dosing. Much improved glucose control with this. (6) Chronic anemia Is this a current diagnosis for this admission?: YesPlan: Likely related to anemia of chronic kidney disease. - Time Time Spent with patient: 35 or more minutes Anticipated discharge: Home with Homehealth Within: within 72 hours
[2016-09-29] MEDS: ATORVASTATIN CALCIUM 80 MG TABLET PO SCH (21:38)
[2016-09-29] MEDS: FLUTICASONE NASAL SPRAY 50 MCG/SPRY 120 SPRAY/16 GM NASL SCH (21:40)
[2016-09-29] MEDS ORDERED: INSULIN GLARGINE,HUM.REC.ANLOG 300 UNIT/3 ML INSULN.PEN SUBCUT SCH (22:00)
[2016-09-30] MEDS: HYDRALAZINE HCL 50 MG TABLET PO SCH ×4 (00:59→21:12)
[2016-09-30] MEDS: CLONIDINE HCL 0.1 MG TABLET PO SCH ×2 (00:59→21:12)
[2016-09-30 05:13] LABS: HEMATOCRIT 29.5 % (36.0-47.0); HEMOGLOBIN 9.7 g/dL (12.0-15.5); HGB HCT DIFFERENCE -0.4; MEAN CORPUSCULAR HEMOGLOBIN 27.5 pg (27.0-33.4); MEAN CORPUSCULAR HGB CONC 32.8 g/dL (32.0-36.0); MEAN CORPUSCULAR VOLUME 84 fl (80-97); RED BLOOD COUNT 3.52 10^6/uL (3.72-5.28); RED CELL DISTRIBUTION WIDTH 14.3 % (11.5-14.0); WHITE BLOOD COUNT 6.2 10^3/uL (4.0-10.5)
[2016-09-30] MEDS: PSEUDOEPHEDRINE HCL 30 MG TABLET PO SCH ×3 (05:23→21:16)
[2016-09-30] MEDS: LANSOPRAZOLE 15 MG TAB.RAP.DR PO SCH ×2 (05:23→17:28)
[2016-09-30] MEDS: HEPARIN SOD (PORCINE) 5,000 UNIT/ML 1 ML SYRINGE SUBCUT SCH ×3 (05:24→21:12)
[2016-09-30 05:34] LABS: ANION GAP 14 (5-19); BLOOD UREA NITROGEN 32 mg/dL (7-20); CALCIUM 9.7 mg/dL (8.4-10.2); CARBON DIOXIDE 21 mmol/L (22-30); CHLORIDE 109 mmol/L (98-107); CREATININE RESULT 4.16 mg/dL (0.52-1.25); GLUCOSE 66 mg/dL (75-110); MAGNESIUM 1.9 mg/dL (1.6-2.3); PHOSPHORUS 5.6 mg/dL (2.5-4.5); POTASSIUM 5.2 mmol/L (3.6-5.0); SODIUM 143.9 mmol/L (137-145)
[2016-09-30] MEDS: LEVOTHYROXINE SODIUM 0.112 MG TABLET PO SCH (08:13)
[2016-09-30] MEDS: PREGABALIN 75 MG CAPSULE PO SCH ×2 (09:39→17:28)
[2016-09-30] MEDS: ASPIRIN 81 MG TABLET, ENT COATED PO SCH (09:39)
[2016-09-30] MEDS: FLUTICASONE NASAL SPRAY 50 MCG/SPRY 120 SPRAY/16 GM NASL SCH ×2 (09:39→21:18)
[2016-09-30] MEDS: SENNOSIDES/DOCUSATE 8.6-50 MG 1 EACH TABLET PO SCH ×2 (09:40→17:28)
[2016-09-30] MEDS: AMLODIPINE BESYLATE 10 MG TABLET PO SCH (09:40)
[2016-09-30] MEDS ORDERED: INSULIN GLARGINE,HUM.REC.ANLOG 300 UNIT/3 ML INSULN.PEN SUBCUT SCH ×2 (10:00→22:00)
[2016-09-30 15:14] LABS: CREATININE 4.16 mg/dL (0.52-1.25)
[2016-09-30 15:41] LABS: URINE CREATININE 108.3 mg/dL (15-278)
--- NOTE | 2016-09-30 17:45 | PDOC PROGRESS REPORT ---
Subjective Progress Note for:: 09/30/16 Subjective:: Patient reports she has a slight on and off headache but that it is overall improved with the addition of Sudafed and Flonase. She does report some dizziness occasionally when opening her eyes and when sitting up. Patient denies chest pain, shortness of breath, abdominal pain, nausea, vomiting, fevers , chills, diarrhea, constipation, new onset weakness. Physical Exam Vital Signs: Temp Pulse Resp BP Pulse Ox 97.4 F 62 20 116/67 100 09/30/16 04:10 09/30/16 04:10 09/30/16 04:10 09/30/16 04:10 09/30/16 04:10 Intake & Output 09/29/16 09/30/16 10/01/16 06:59 06:59 06:59 Intake Total 1587 969 Output Total 800 1150 Balance 787 -181 Weight 89.5 kg 90 kg Exam: General: Awake alert and oriented x4, no acute respiratory distress HEENT: AT/NC, PERRL, Left eye CN III palsy pupil sparing, oropharynx is moist, pink, no scleral icterus, no conjunctival injection, no nystagmus Neck: No JVD, trachea midline Chest: Clear to auscultation bilaterally, no wheezes rhonchi or rales CV: Regular rate and rhythm, normal S1 and S2, no rub or gallop Abdomen: Soft, nontender to palpation, nondistended, active bowel sounds; no rebound, rigidity, or guarding Extremities: No cyanosis, clubbing or edema Neuro: Cranial nerves IV through XII are grossly intact without focal deficits; pupil sparing left cranial nerve III, awake alert and oriented x4; strength 5 out 5 bilateral upper and lower extremities Psych: Tearful Results Laboratory Results: 09/30/16 04:19 09/30/16 04:19 09/30/16 09/30/16 04:19 04:19 WBC 6.2 RBC 3.52 L Hgb 9.7 L Hct 29.5 L MCV 84 MCH 27.5 MCHC 32.8 RDW 14.3 H Plt Count 240 Retic Count (auto) 1.64 Absolute Retic 0.058 Sodium 143.9 Potassium 5.2 H Chloride 109 H Carbon Dioxide 21 L Anion Gap 14 BUN 32 H Creatinine 4.16 H Est GFR ( Amer) 13 L Est GFR (Non-Af Amer) 11 L Glucose 66 L Calcium 9.7 Phosphorus 5.6 H Magnesium 1.9 Iron 88 TIBC 317 % Saturation 28 Ferritin 39.10 Vitamin B12 445.0 Folate 18.80 09/26/16 09/26/16 01:20 06:50 Troponin I < 0.012 < 0.012 Impressions: Head CT 09/25/16 16:04 IMPRESSION: NORMAL BRAIN CT WITHOUT CONTRAST. Head MRI 09/26/16 00:00 IMPRESSION: MINIMAL STABLE WHITE MATTER DISEASE. OTHERWISE, NORMAL MRI OF THE BRAIN WITHOUT INTRAVENOUS GADOLINIUM CONTRAST. Abdomen X-Ray 09/27/16 00:00 IMPRESSION: NO RADIOGRAPHIC EVIDENCE FOR ACUTE ABDOMINAL DISEASE. Carotid Doppler Study 09/28/16 11:42 IMPRESSION: No flow significant stenosis at the right carotid bifurcation. 50 to 69% diameter narrowing left proximal ICA related to non calcific plaque at the origin. This represents progression of disease compared to 11/12/2015 carotid Doppler Renal Ultrasound 09/29/16 00:00 IMPRESSION: Small right kidney with multiple small intrarenal nonobstructive calculi. No right hydronephrosis. Left kidney unremarkable Bladder decompressed, not well seen Assessment & Plan - Diagnosis (1) Headache Qualifiers: Headache type: unspecified Headache chronicity pattern: acute headache Intractability: not intractable Qualified Code(s): R51 - Headache Is this a current diagnosis for this admission?: YesPlan: Overall improved. Believe this is likely related to her underlying hypertensive emergency as well as sinusitis. Patient has been started on Flonase and Sudafed and has when necessary Tylenol, Flexeril, and Percocet. (2) Malignant hypertension Is this a current diagnosis for this admission?: YesPlan: Goal blood pressure for this patient be is should be a systolic of 140. Patient currently at goal. Patient currently on Norvasc, clonidine, hydralazine. No Rajat/ARB secondary to renal failure. (3) PAD (peripheral artery disease) Is this a current diagnosis for this admission?: Yes (4) Chronic kidney disease (CKD) stage G3b/A1, moderately decreased glomerular filtration rate (GFR) between 30-44 mL/min/1.73 square meter and albuminuria creatinine ratio less than 30 mg/g Is this a current diagnosis for this admission?: YesPlan: Patient has acute on chronic kidney disease likely secondary to her uncontrolled hypertension. Appreciate nephrology input. At this time, I have discussed with nephrology and we have consulted vascular surgery for permacath for hemodialysis. I discussed this with the patient, and she is unsure if she would want dialysis or not. We discussed the benefits and the downside and have asked for further information from the nephrology office in regards to dialysis for the patient. (5) Diabetes 1.5, managed as type 1 Is this a current diagnosis for this admission?: YesPlan: Patient again with a.m. hypoglycemia. Will decrease Lantus by 3 units. (6) Chronic anemia Is this a current diagnosis for this admission?: YesPlan: Likely related to anemia of chronic kidney disease. Patient has good iron saturation. - Time Time Spent with patient: 35 or more minutes Medications reviewed and adjusted accordingly: Yes
--- NOTE | 2016-09-30 19:27 | PDOC PROGRESS REPORT ---
[id number]. She seems definitely improved since begun her on decongestants. She is not feeling that pressure-like sensation like she had before. Her pressure is more manageable at the moment.7 chest pain shortness of breath or nausea vomiting. Appetite is still not good. Labs were reviewed with the patient shows a creeping creatinine from 2 + to 4+. Ultrasound of the kidneys had also shown that she has an atrophied right kidney with a compensatory left kidney. Physical Exam Vital Signs: Temp Pulse Resp BP Pulse Ox 97.1 F 79 19 153/67 H 98 09/30/16 15:03 09/30/16 15:03 09/30/16 15:03 09/30/16 15:03 09/30/16 15:03 Intake & Output 09/29/16 09/30/16 10/01/16 06:59 06:59 06:59 Intake Total 1587 969 829 Output Total 800 1150 900 Balance 787 -181 -71 Weight 89.5 kg 90 kg General appearance: PRESENT: no acute distress Respiratory exam: PRESENT: clear to auscultation grupo. ABSENT: rales, rhonchi Cardiovascular exam: PRESENT: +S1, +S2 GI/Abdominal exam: PRESENT: normal bowel sounds, soft. ABSENT: ascites, firm, guarding, tenderness Neurological exam: PRESENT: awake, oriented to person, oriented to place, oriented to time Skin exam: PRESENT: dry, rash. ABSENT: erythema, mottled Results Laboratory Results: 09/30/16 04:19 09/30/16 14:08 09/30/16 09/30/16 09/30/16 04:19 04:19 14:08 WBC 6.2 RBC 3.52 L Hgb 9.7 L Hct 29.5 L MCV 84 MCH 27.5 MCHC 32.8 RDW 14.3 H Plt Count 240 Retic Count (auto) 1.64 Absolute Retic 0.058 Sodium 143.9 Potassium 5.2 H Chloride 109 H Carbon Dioxide 21 L Anion Gap 14 BUN 32 H Creatinine 4.16 H 4.16 H Est GFR ( Amer) 13 L Est GFR (Non-Af Amer) 11 L Glucose 66 L Calcium 9.7 Phosphorus 5.6 H Magnesium 1.9 Iron 88 TIBC 317 % Saturation 28 Ferritin 39.10 Vitamin B12 445.0 Folate 18.80 Ur 24 Hour Volume 900 09/26/16 09/26/16 01:20 06:50 Troponin I < 0.012 < 0.012 Impressions: Head CT 09/25/16 16:04 IMPRESSION: NORMAL BRAIN CT WITHOUT CONTRAST. Head MRI 09/26/16 00:00 IMPRESSION: MINIMAL STABLE WHITE MATTER DISEASE. OTHERWISE, NORMAL MRI OF THE BRAIN WITHOUT INTRAVENOUS GADOLINIUM CONTRAST. Abdomen X-Ray 09/27/16 00:00 IMPRESSION: NO RADIOGRAPHIC EVIDENCE FOR ACUTE ABDOMINAL DISEASE. Carotid Doppler Study 09/28/16 11:42 IMPRESSION: No flow significant stenosis at the right carotid bifurcation. 50 to 69% diameter narrowing left proximal ICA related to non calcific plaque at the origin. This represents progression of disease compared to 11/12/2015 carotid Doppler Renal Ultrasound 09/29/16 00:00 IMPRESSION: Small right kidney with multiple small intrarenal nonobstructive calculi. No right hydronephrosis. Left kidney unremarkable Bladder decompressed, not well seen Assessment & Plan - Diagnosis (1) Headache Qualifiers: Headache type: unspecified Headache chronicity pattern: acute headache Intractability: not intractable Qualified Code(s): R51 - Headache Is this a current diagnosis for this admission?: YesPlan: [facility] combination of malignant hypertension and sinusitis. Continue present medications. (2) Malignant hypertension Is this a current diagnosis for this admission?: YesPlan: Her current blood pressures are in the 140-150 systolic systolics and she is in a place that she should reside for a while. I would be cautious in no overt correcting her blood pressure the moment. Unfortunately her kidney function are deteriorating slowly but surely and she might end up on dialysis sooner than later. (3) Chronic kidney disease (CKD) stage G3b/A1, moderately decreased glomerular filtration rate (GFR) between 30-44 mL/min/1.73 square meter and albuminuria creatinine ratio less than 30 mg/g Is this a current diagnosis for this admission?: YesPlan: She has acute worsening of her CKD. She is continuing to show creeping creatinine which is not good. No acute indications for renal replacements. No evidences of uremia. Discussed with patient. I have discussed dialysis but she has no indications at the moment. Continue to monitor. Her creatinine clearance while she is in the hospital came back at 16 mL/m. (4) Acute kidney injury superimposed on chronic kidney disease Plan: Presenting as malignant hypertension. It does not look like it is improving. We will monitor this while she is inpatient and see if she might be entering the dialysis realm. No acute indications for renal replacement at the moment though. (5) Chronic anemia Is this a current diagnosis for this admission?: Yes
[2016-09-30] MEDS: FAMOTIDINE 20 MG TABLET PO SCH ×2 (19:44→19:46)
[2016-09-30] MEDS: DIPHENHYDRAMINE HCL 50 MG CAPSULE PO SCH ×2 (19:44→19:46)
[2016-09-30] MEDS: PREDNISONE 20 MG TABLET PO SCH ×2 (19:44→19:46)
[2016-09-30] MEDS: ATORVASTATIN CALCIUM 80 MG TABLET PO SCH (21:11)
[2016-09-30] MEDS: INSULIN LISPRO 100 UNIT/ML 3 ML VIAL SUBCUT PRN (22:40)
[2016-10-01 05:19] LABS: ABSOLUTE LYMPHOCYTES (AUTO) 1.5 10^3/uL (0.5-4.7); ABSOLUTE MONOCYTES (AUTO) 0.6 10^3/uL (0.1-1.4); ABSOLUTE NEUT (AUTO) 6.3 10^3/uL (1.7-8.2); BASOPHILS % (AUTO) 0.4 % (0-2); HEMATOCRIT 30.3 % (36.0-47.0); HEMOGLOBIN 9.9 g/dL (12.0-15.5); HGB HCT DIFFERENCE -0.6; LYMPHOCYTES % (AUTO) 17.4 % (13-45); MEAN CORPUSCULAR HEMOGLOBIN 27.3 pg (27.0-33.4); MEAN CORPUSCULAR HGB CONC 32.7 g/dL (32.0-36.0); MEAN CORPUSCULAR VOLUME 84 fl (80-97); MONOCYTES % (AUTO) 6.9 % (3-13); RED BLOOD COUNT 3.63 10^6/uL (3.72-5.28); RED CELL DISTRIBUTION WIDTH 14.2 % (11.5-14.0); SEGMENTED NEUTROPHILS % (AUTO) 75.3 % (42-78); WHITE BLOOD COUNT 8.4 10^3/uL (4.0-10.5)
[2016-10-01 05:22] LABS: PROTHROMBIN TIME 12.2 SEC (11.4-15.4)
[2016-10-01 05:23] LABS: PARTIAL THROMBOPLASTIN TIME 36.6 SEC (23.5-35.8)
[2016-10-01] MEDS: LANSOPRAZOLE 15 MG TAB.RAP.DR PO SCH ×2 (05:30→17:21)
[2016-10-01] MEDS: PSEUDOEPHEDRINE HCL 30 MG TABLET PO SCH ×2 (05:30→15:01)
[2016-10-01] MEDS: HEPARIN SOD (PORCINE) 5,000 UNIT/ML 1 ML SYRINGE SUBCUT SCH ×2 (05:30→15:01)
[2016-10-01 05:35] LABS: ANION GAP 12 (5-19); BLOOD UREA NITROGEN 38 mg/dL (7-20); CALCIUM 9.5 mg/dL (8.4-10.2); CARBON DIOXIDE 20 mmol/L (22-30); CHLORIDE 108 mmol/L (98-107); CREATININE RESULT 4.15 mg/dL (0.52-1.25); GLUCOSE 163 mg/dL (75-110); POTASSIUM 5.7 mmol/L (3.6-5.0); SODIUM 140.3 mmol/L (137-145)
[2016-10-01] MEDS: HYDRALAZINE HCL 50 MG TABLET PO SCH ×2 (05:35→15:00)
[2016-10-01] MEDS: LACTULOSE SYRUP 20 GM/30 ML UDCUP PO PRN (06:11)
[2016-10-01] MEDS: LEVOTHYROXINE SODIUM 0.112 MG TABLET PO SCH (08:25)
[2016-10-01] MEDS: PREGABALIN 75 MG CAPSULE PO SCH ×2 (09:30→17:21)
[2016-10-01] MEDS: AMLODIPINE BESYLATE 10 MG TABLET PO SCH (09:30)
[2016-10-01] MEDS: ASPIRIN 81 MG TABLET, ENT COATED PO SCH (09:30)
[2016-10-01] MEDS: SENNOSIDES/DOCUSATE 8.6-50 MG 1 EACH TABLET PO SCH ×2 (09:31→17:21)
[2016-10-01] MEDS: FLUTICASONE NASAL SPRAY 50 MCG/SPRY 120 SPRAY/16 GM NASL SCH (09:31)
[2016-10-01] MEDS ORDERED: INSULIN GLARGINE,HUM.REC.ANLOG 300 UNIT/3 ML INSULN.PEN SUBCUT SCH (10:00)
[2016-10-01] MEDS ORDERED: SODIUM POLYSTYRENE SULFONATE 15 GM/60 ML PO ONE (10:00)
[2016-10-01] MEDS ORDERED: SODIUM POLYSTYRENE SULFONATE 15 GM/60 ML ONE (10:02)
--- NOTE | 2016-10-01 10:40 | PDOC PROGRESS REPORT ---
Subjective Progress Note for:: 10/01/16 Subjective:: Patient was seen this morning. She feels a whole lot better. She has had issues with constipation and just had a bowel movement. Her headache is a whole lot better. She denies chest pain shortness of breath. Labs were reviewed which shows that her creatinine is stable. However potassium was high at 5.67. She is eating well and would like to go home. At a lengthy discussion yesterday about hemodialysis. She is not keen on going dialysis even when she reaches that point. She understands the consequences including hyperkalemia and congestive heart failure which can cause to her life. Had a lengthy discussion of advanced care directives and she would like to discuss that with her daughter and will discuss more when she comes and sees me in my office in a in about 10 days time. Physical Exam Vital Signs: Temp Pulse Resp BP Pulse Ox 97.3 F 71 19 161/77 H 95 10/01/16 07:20 10/01/16 07:20 10/01/16 07:20 10/01/16 07:20 10/01/16 07:20 Intake & Output 09/30/16 10/01/16 10/02/16 06:59 06:59 06:59 Intake Total 969 1284 Output Total 1150 1200 Balance -181 84 Weight 90 kg 90.2 kg General appearance: PRESENT: no acute distress Respiratory exam: PRESENT: clear to auscultation grupo. ABSENT: crackles, rhonchi Cardiovascular exam: PRESENT: +S1, +S2 GI/Abdominal exam: PRESENT: normal bowel sounds, soft. ABSENT: ascites, firm, guarding, tenderness Neurological exam: PRESENT: alert, awake, oriented to person, oriented to place , oriented to time, oriented to situation Results Laboratory Results: 10/01/16 04:17 10/01/16 04:17 09/30/16 09/30/16 10/01/16 04:19 14:08 04:17 WBC RBC Hgb Hct MCV MCH MCHC RDW Plt Count Seg Neutrophils % Lymphocytes % Monocytes % Eosinophils % Basophils % Absolute Neutrophils Absolute Lymphocytes Absolute Monocytes Absolute Eosinophils Absolute Basophils Sodium 140.3 Potassium 5.7 H Chloride 108 H Carbon Dioxide 20 L Anion Gap 12 BUN 38 H Creatinine 4.16 H 4.15 H Est GFR ( Amer) 13 L Est GFR (Non-Af Amer) 11 L Glucose 163 H Calcium 9.5 Transferrin 240 Ur 24 Hour Volume 900 10/01/16 04:17 WBC 8.4 RBC 3.63 L Hgb 9.9 L Hct 30.3 L MCV 84 MCH 27.3 MCHC 32.7 RDW 14.2 H Plt Count 241 Seg Neutrophils % 75.3 Lymphocytes % 17.4 Monocytes % 6.9 Eosinophils % 0.0 Basophils % 0.4 Absolute Neutrophils 6.3 Absolute Lymphocytes 1.5 Absolute Monocytes 0.6 Absolute Eosinophils 0.0 Absolute Basophils 0.0 Sodium Potassium Chloride Carbon Dioxide Anion Gap BUN Creatinine Est GFR ( Amer) Est GFR (Non-Af Amer) Glucose Calcium Transferrin Ur 24 Hour Volume 09/26/16 09/26/16 01:20 06:50 Troponin I < 0.012 < 0.012 Impressions: Head CT 09/25/16 16:04 IMPRESSION: NORMAL BRAIN CT WITHOUT CONTRAST. Head MRI 09/26/16 00:00 IMPRESSION: MINIMAL STABLE WHITE MATTER DISEASE. OTHERWISE, NORMAL MRI OF THE BRAIN WITHOUT INTRAVENOUS GADOLINIUM CONTRAST. Abdomen X-Ray 09/27/16 00:00 IMPRESSION: NO RADIOGRAPHIC EVIDENCE FOR ACUTE ABDOMINAL DISEASE. Carotid Doppler Study 09/28/16 11:42 IMPRESSION: No flow significant stenosis at the right carotid bifurcation. 50 to 69% diameter narrowing left proximal ICA related to non calcific plaque at the origin. This represents progression of disease compared to 11/12/2015 carotid Doppler Renal Ultrasound 09/29/16 00:00 IMPRESSION: Small right kidney with multiple small intrarenal nonobstructive calculi. No right hydronephrosis. Left kidney unremarkable Bladder decompressed, not well seen Assessment & Plan - Diagnosis (1) Headache Qualifiers: Headache type: unspecified Headache chronicity pattern: acute headache Intractability: not intractable Qualified Code(s): R51 - Headache Is this a current diagnosis for this admission?: YesPlan: Resolving (2) Malignant hypertension Is this a current diagnosis for this admission?: YesPlan: Stable monitor as an outpatient. (3) Chronic kidney disease (CKD) stage G3b/A1, moderately decreased glomerular filtration rate (GFR) between 30-44 mL/min/1.73 square meter and albuminuria creatinine ratio less than 30 mg/g Is this a current diagnosis for this admission?: Yes (4) Acute kidney injury superimposed on chronic kidney disease Plan: Creatinine has stabilized around 4. She ckd stage V. Discussed dialysis. No acute indications currently but will follow-up as an outpatient. Discussed advance care directives. Total time on this was more than 15 minutes. (5) Chronic anemia Is this a current diagnosis for this admission?: Yes (6) Hyperkalemia Plan: Treat with Kayexalate. Patient did have a bowel movement this morning and feels relieved. Believe the clonidine might be the culprit here and would need to look at other alternates. Given her ckd stage V she should not be in a constipated state post discharge.
[2016-10-01] MEDS: INSULIN LISPRO 100 UNIT/ML 3 ML VIAL SUBCUT PRN ×2 (12:09→17:22)
[2016-10-01 18:04] VITALS: BP 190/100
--- NOTE | 2016-10-02 06:51 | PDOC DISCHARGE SUMMARY ---
General - Admit/Disc Date/PCP Admission Date/Primary Care Provider: 09/25/16 18:38 Discharge Date: 10/01/16 - Discharge Diagnosis (1) Malignant hypertension Is this a current diagnosis for this admission?: Yes (2) Headache Is this a current diagnosis for this admission?: Yes (3) PAD (peripheral artery disease) Is this a current diagnosis for this admission?: Yes (4) Diabetes 1.5, managed as type 1 Is this a current diagnosis for this admission?: Yes (5) Chronic anemia Is this a current diagnosis for this admission?: YesSummary: Laboratory studies revealed anemia of chronic disease (6) Acute kidney injury superimposed on chronic kidney disease Is this a current diagnosis for this admission?: Yes (7) Conjugate gaze palsy Is this a current diagnosis for this admission?: Yes (8) Constipation Is this a current diagnosis for this admission?: Yes (9) Hyperkalemia Is this a current diagnosis for this admission?: Yes (10) Sinusitis Is this a current diagnosis for this admission?: Yes - Additional Information Resuscitation Status: Full Code Discharge Diet: Cardiac, Other (Comments) - Low Potassium Discharge Activity: Activity As Tolerated Home Medications: Atorvastatin Calcium [Lipitor 20 mg Tablet] 20 mg PO QHS 09/26/16 Cyanocobalamin (Vitamin B-12) [Vitamin B-12 Inj 1000 Mcg/1 ml Vial] 1,000 mcg SQ S5PMWHH 09/26/16 Ferrous Sulfate [Feosol 325 mg Tablet] 325 mg PO BID 09/26/16 Insulin Lispro [Humalog Insulin (Lispro) 100 unit/mL] 0 units SQ TIDP PRN Levothyroxine Sodium [Synthroid 0.112 mg Tablet] 0.112 mg PO QAM 09/26/16 Pregabalin [Lyrica 75 mg Capsule] 75 mg PO BID 09/26/16 Amlodipine Besylate [Norvasc 10 mg Tablet] 10 mg PO DAILY #30 tablet 10/01/16 Aspirin [Ecotrin 81 mg EC Tablet] 81 mg PO DAILY #90 tabec 10/01/16 Clonidine HCl [Catapres 0.1 mg Tablet] 0.1 mg PO QHS #30 tablet 10/01/16 Cyclobenzaprine HCl [Flexeril 10 mg Tablet] 5 mg PO Q8HP PRN tablet 10/01/16 Fluticasone Propionate [Flonase Nasal [place] 50 Mcg/[place] 16 gm] 1 spray NASL Q12 #1 spray.pump 10/01/16 Hydralazine HCl [Apresoline 50 mg Tablet] 25 mg PO Q8 #90 tablet 10/01/16 Insulin Glargine,Hum.rec.anlog [Lantus Insulin 100 Unit/mL] 15 unit SUBCUT QHS insuln.pen 10/01/16 Insulin Glargine,Hum.rec.anlog [Lantus Insulin 100 Unit/mL] 17 unit SUBCUT DAILY insuln.pen 10/01/16 Sennosides/Docusate 8.6-50 mg [Senna Plus Tablet] 2 each PO BID #60 tablet 10/01 History of Present Illness History of Present Illness: DAVID CAMARGO is a 61 year old female who presents from Dr. Law's office today where she was being seen for routine hospital follow-up after recent discharge and was found to be significantly hypertensive with blood pressure reportedly 258/117. She reports a low-grade, constant frontal headache for the last 8 days worse today described as increased intensity. It's a dull aching pain, nonradiating but with associated blurred vision and nausea; family also notes slurred speech, slowed mentation, and periods of "blacking out" lasting for about an hour and a half this afternoon when her blood pressure and headache were at their worst and seemed to resolve what her blood pressure came down after treatment. She denies numbness and tingling, unilateral weakness, facial droop, difficulty swallowing, chest pain, palpitations, swelling of her lower extremities, orthopnea and PND, and fevers or chills. She denies stiff neck or decreased range of motion in the neck. She was just discharged from this facility on 09/16/2016 after successful 4d treatment of pyelonephritis however her usual antihypertensive regimen was held at discharge due to hyperkalemia and volume depletion. She is seen by Dr. Law for stage IV chronic kidney disease not yet in need of hemodialysis. Evaluation in the emergency department showed her to be quite hypertensive this resolved with a single dose of clonidine 0.2 mg dropping her systolic pressure by 68 points and her diastolic pressure by 7 points with good improvement in her symptoms but without resolution of same. As a result we were asked to admit for further evaluation and management. Hospital Course Hospital Course: She was admitted to [facility] and monitored on telemetry. Patient was placed on multiple antihypertensives and was elucidated through her stay the patient was intermittently compliant with her antihypertensive therapy. Although patient's blood pressure had dramatically improved, her headache had not improved. MRI revealed minimal spinal spotty increased bifrontal biparietal white matter signal which was likely minimal small vessel ischemic change or gliosis. No overt infarct was seen. He was noted on physical examination on presentation the patient had a left cranial nerve III pupils peering deficit which was new. It is felt the patient may have had a small lacunar infarct but is unable to be seen on MRI. Carotid Doppler was performed which revealed left proximal ICA 50- 69%, which was worsened from patient's Doppler in October 2015. Echocardiogram was performed which revealed mild to moderate grade 2 diastolic dysfunction. Patient was placed on pseudoephedrine by nephrology and Flonase by medicine and had improvement of her headache. Patient's kidney function continued to decline while in the hospital. Patient had previously been a CKD4 and now is a CKD4-CKD5 with a creatinine clearance of 16, but is nonoliguric. Renal ultrasound was performed which revealed a small kidney on the right and a normal kidney on the left. 24 urine was obtained Discussions were had with patient about dialysis prior to discharge and at this time she feels that she does not want dialysis. Prior to discharge, patient did have an elevated potassium which was treated with Kayexalate. Patient's potassium returned to 5.0. Patient has list of low potassium foods. She will have BMP prior to nephrology appointment. Patient's care was discussed with her as well as her family which was present at the discharge. Patient is currently stable for discharge. Physical Exam Vital Signs: Selected Entries 10/01/16 15:07 Temperature 97.2 F Pulse Rate 74 Respiratory 16 Rate Blood Pressure 144/82 H O2 Sat by Pulse 99 Oximetry Exam: General: Awake alert and oriented x4, no acute respiratory distress HEENT: AT/NC, PERRL, Left eye CN III palsy pupil sparing, oropharynx is moist, pink, no scleral icterus, no conjunctival injection, no nystagmus Neck: No JVD, trachea midline Chest: Clear to auscultation bilaterally, no wheezes rhonchi or rales CV: Regular rate and rhythm, normal S1 and S2, no rub or gallop Abdomen: Soft, nontender to palpation, nondistended, active bowel sounds; no rebound, rigidity, or guarding Extremities: No cyanosis, clubbing or edema Neuro: Cranial nerves IV through XII are grossly intact without focal deficits; pupil sparing left cranial nerve III, awake alert and oriented x4 Psych: Normal mood and affect Results Laboratory Results: 10/01/16 04:17 10/01/16 14:52 09/30/16 10/01/16 10/01/16 04:19 04:17 04:17 WBC 8.4 RBC 3.63 L Hgb 9.9 L Hct 30.3 L MCV 84 MCH 27.3 MCHC 32.7 RDW 14.2 H Plt Count 241 Seg Neutrophils % 75.3 Lymphocytes % 17.4 Monocytes % 6.9 Eosinophils % 0.0 Basophils % 0.4 Absolute Neutrophils 6.3 Absolute Lymphocytes 1.5 Absolute Monocytes 0.6 Absolute Eosinophils 0.0 Absolute Basophils 0.0 Sodium 140.3 Potassium 5.7 H Chloride 108 H Carbon Dioxide 20 L Anion Gap 12 BUN 38 H Creatinine 4.15 H Est GFR ( Amer) 13 L Est GFR (Non-Af Amer) 11 L Glucose 163 H Calcium 9.5 Transferrin 240 10/01/16 14:52 WBC RBC Hgb Hct MCV MCH MCHC RDW Plt Count Seg Neutrophils % Lymphocytes % Monocytes % Eosinophils % Basophils % Absolute Neutrophils Absolute Lymphocytes Absolute Monocytes Absolute Eosinophils Absolute Basophils Sodium Potassium 5.0 Chloride Carbon Dioxide Anion Gap BUN Creatinine Est GFR ( Amer) Est GFR (Non-Af Amer) Glucose Calcium Transferrin 09/26/16 09/26/16 01:20 06:50 Troponin I < 0.012 < 0.012 Impressions: Head CT 09/25/16 16:04 IMPRESSION: NORMAL BRAIN CT WITHOUT CONTRAST. Head MRI 09/26/16 00:00 IMPRESSION: MINIMAL STABLE WHITE MATTER DISEASE. OTHERWISE, NORMAL MRI OF THE BRAIN WITHOUT INTRAVENOUS GADOLINIUM CONTRAST. Abdomen X-Ray 09/27/16 00:00 IMPRESSION: NO RADIOGRAPHIC EVIDENCE FOR ACUTE ABDOMINAL DISEASE. Carotid Doppler Study 09/28/16 11:42 IMPRESSION: No flow significant stenosis at the right carotid bifurcation. 50 to 69% diameter narrowing left proximal ICA related to non calcific plaque at the origin. This represents progression of disease compared to 11/12/2015 carotid Doppler Renal Ultrasound 09/29/16 00:00 IMPRESSION: Small right kidney with multiple small intrarenal nonobstructive calculi. No right hydronephrosis. Left kidney unremarkable Bladder decompressed, not well seen Qualifiers PATEINT BEING DISCHARGED WITH ANY OF THE FOLLOWING DIAGNOSIS?: No Plan Time Spent: Greater than 30 Minutes
== END 2016-10-01 18:49 | disposition home or self-care (01) | DRG 305 ==
LOC: ER 15:54 → EH 18:38 → UNDOADMIN 19:34 → 3N 21:30 → EH 21:30
PROVIDERS: ADMIT Internal Medicine; ATTEND Internal Medicine
DX: I16.1 Hypertensive emergency (principal); N18.4 Chronic kidney disease, stage 4 (severe); N17.9 Acute kidney failure, unspecified; I12.9 Hypertensive chronic kidney disease with stage 1 through stage 4 chronic kidney disease, or unspecified chronic kidney disease; E11.22 Type 2 diabetes mellitus with diabetic chronic kidney disease; D64.9 Anemia, unspecified; E83.42 Hypomagnesemia; E87.5 Hyperkalemia; E03.9 Hypothyroidism, unspecified; E78.5 Hyperlipidemia, unspecified; I73.9 Peripheral vascular disease, unspecified; H51.0 Palsy (spasm) of conjugate gaze; R51 Headache; J32.9 Chronic sinusitis, unspecified; K59.00 Constipation, unspecified; F17.210 Nicotine dependence, cigarettes, uncomplicated; Z79.4 Long term (current) use of insulin
CPT/HCPCS: 36415; 70450; 70551; 74020; 76770; 80048; 80053; 80076; 81001; 82575; 82607; 82728; 82746; 82962; 83036; 83540; 83550; 83690; 83735; 84100; 84132; 84439; 84443; 84466; 84481; 84484; 85025; 85027; 85045; 85610; 85730; 93005; 93010; 93306; 93880; 99291; J0360; J1644; J1815; J2405; J3475; J3490; J7030; S0164

== ENCOUNTER → 2016-10-06 | Outpatient (CLI) | payer BC ==
[2016-10-06 14:50] LABS: HEMATOCRIT 28.3 % (36.0-47.0); HEMOGLOBIN 9.4 g/dL (12.0-15.5); HGB HCT DIFFERENCE -0.1; MEAN CORPUSCULAR HEMOGLOBIN 27.7 pg (27.0-33.4); MEAN CORPUSCULAR HGB CONC 33.2 g/dL (32.0-36.0); MEAN CORPUSCULAR VOLUME 83 fl (80-97); RED CELL DISTRIBUTION WIDTH 14.7 % (11.5-14.0); WHITE BLOOD COUNT 5.7 10^3/uL (4.0-10.5)
[2016-10-06 15:04] LABS: ANION GAP 16 (5-19); BLOOD UREA NITROGEN 45 mg/dL (7-20); CALCIUM 9.2 mg/dL (8.4-10.2); CARBON DIOXIDE 19 mmol/L (22-30); CHLORIDE 110 mmol/L (98-107); CREATININE RESULT 3.74 mg/dL (0.52-1.25); GLUCOSE 146 mg/dL (75-110); MAGNESIUM 1.9 mg/dL (1.6-2.3); PHOSPHORUS 4.9 mg/dL (2.5-4.5); POTASSIUM 4.8 mmol/L (3.6-5.0); SODIUM 145.3 mmol/L (137-145)
== END ==
LOC: OD 13:16
PROVIDERS: ATTEND Internal Medicine Nephrology
DX: N18.9 Chronic kidney disease, unspecified (principal); D64.9 Anemia, unspecified
CPT/HCPCS: 36415; 80048; 82728; 83540; 83550; 83735; 83970; 84100; 85027

== ENCOUNTER 2016-10-16 19:18 | Inpatient (IN) | payer BC ==
[2016-10-16] MEDS ORDERED: ASPIRIN 81 MG TABLET, CHEWABLE PO ONE (19:35)
--- NOTE | 2016-10-16 20:51 | ER Document Report ---
ED Medical Screen (RME) - General Stated Complaint: CHEST TIGHTNESS Mode of Arrival: Ambulatory Information source: Patient, Relative Notes: 61 y/o F presents to ED c/o lower back and lower abd pain, upper leg pain, chest tightness, sob, headache, and dizziness over the last 2 days. Reports hx of TIA. Denies fever. I have greeted and performed a rapid initial assessment of this patient. A comprehensive ED assessment and evaluation of the patient, analysis of test results and completion of the medical decision making process will be conducted by additional ED providers. TRAVEL OUTSIDE OF THE [place] IN LAST 30 DAYS: No - Related Data Allergies/Adverse Reactions: Iodinated Contrast Media - Oral and [IV Dye, Iodine Containing] Allergy ( Intermediate, Verified 10/16/16 20:44) Vomiting morphine [Morphine] Allergy (Intermediate, Verified 10/16/16 20:44) Past Medical History - Social History Chew tobacco use (# tins/day): No Frequency of alcohol use: None Drug Abuse: None - Past Medical History Cardiac Medical History: Reports: Hx Hypercholesterolemia, Hx Hypertension Denies: Hx Coronary Artery Disease, Hx Heart Attack Pulmonary Medical History: Denies: Hx Asthma, Hx Bronchitis, Hx COPD, Hx Pneumonia, Hx Tuberculosis Neurological Medical History: Denies: Hx Cerebrovascular Accident, Hx Seizures Endocrine Medical History: Reports: Hx Diabetes Mellitus Type 1, Hx Diabetes Mellitus Type 2, Hx Hypothyroidism Renal/ Medical History: Denies: Hx Peritoneal Dialysis Musculoskeltal Medical History: Denies Hx Arthritis Psychiatric Medical History: Reports: Hx Depression Past Surgical History: Reports: Hx Section, Hx Tubal Ligation. Denies : Hx Pacemaker - Immunizations Hx Diphtheria, Pertussis, Tetanus Vaccination: Yes Physical Exam - Vital signs Vitals: Pulse Resp BP Pulse Ox 54 L 24 H 106/57 L 99 10/16/16 20:37 10/16/16 20:37 10/16/16 20:37 10/16/16 20:37 - General General appearance: Appears well, Alert In distress: None - Respiratory Respiratory status: No respiratory distress - Cardiovascular Rhythm: Regular Pulses: Normal: Radial Normal capillary refill: Yes - Neurological Neuro grossly intact: Yes Cognition: Normal Orientation: AAOx4 [place] Coma Scale Eye Opening: Spontaneous [place] Coma Scale Verbal: Oriented [place] Coma Scale Motor: Obeys Commands [place] Coma Scale Total: 15 Speech: Normal Motor strength normal: LUE, RUE, LLE, RLE Course - Vital Signs Vital signs: Temp Pulse Resp BP Pulse Ox 54 L 24 H 106/57 L 98 10/16/16 20:38 10/16/16 20:38 10/16/16 20:38 10/16/16 20:38
--- NOTE | 2016-10-17 00:46 | ER Document Report ---
ED General - General Chief Complaint: Low Back Pain Stated Complaint: CHEST TIGHTNESS Mode of Arrival: Ambulatory Notes: Patient is a 61-year-old female presents with complaints of being very weak and having pain throughout her back, chest, sides, and extremities. She has a history of chronic renal sufficiency. Shows history of diabetes as well as your tract infections as well has hypothyroidism. She says her thyroid medication was recently decreased from 125 to 112 g. She still on Norvasc but this has not been changed. She denies ever having a history of low heart rate in the past. She denies fevers. She says she never gets fevers. She last time she was admitted for sepsis she never spiked a fever. She says this is normal for her to be remained afebrile and 1 very sick. She's been feeling bad for about 2 days. Today she started having pain and started feeling worse. Some nausea. No diarrhea. TRAVEL OUTSIDE OF THE [place] IN LAST 30 DAYS: No - Related Data Allergies/Adverse Reactions: Iodinated Contrast Media - Oral and [IV Dye, Iodine Containing] Allergy ( Intermediate, Verified 10/16/16 20:44) Vomiting morphine [Morphine] Allergy (Intermediate, Verified 10/16/16 20:44) Past Medical History - General Information source: Patient, Relative - Social History Smoking Status: Never Smoker Chew tobacco use (# tins/day): No Frequency of alcohol use: None Drug Abuse: None Family History: Reviewed & Not Pertinent Patient has suicidal ideation: No Patient has homicidal ideation: No - Past Medical History Cardiac Medical History: Reports: Hx Hypercholesterolemia, Hx Hypertension Denies: Hx Coronary Artery Disease, Hx Heart Attack Pulmonary Medical History: Denies: Hx Asthma, Hx Bronchitis, Hx COPD, Hx Pneumonia, Hx Tuberculosis Neurological Medical History: Denies: Hx Cerebrovascular Accident, Hx Seizures Endocrine Medical History: Reports: Hx Diabetes Mellitus Type 1, Hx Diabetes Mellitus Type 2, Hx Hypothyroidism Renal/ Medical History: Denies: Hx Peritoneal Dialysis Musculoskeltal Medical History: Denies Hx Arthritis Psychiatric Medical History: Reports: Hx Depression Past Surgical History: Reports: Hx Section, Hx Tubal Ligation. Denies : Hx Pacemaker - Immunizations Hx Diphtheria, Pertussis, Tetanus Vaccination: Yes Hx Pneumococcal Vaccination: 06/30/13 Review of Systems - Review of Systems Notes: My Normal Review Basic REVIEW OF SYSTEMS: CONSTITUTIONAL : Denies fever, chills, or sweats. Denies recent illness. EENT: Denies eye, ear, throat, or mouth pain or symptoms. Denies nasal or sinus congestion. CARDIOVASCULAR: Some chest pain RESPIRATORY: Denies cough, cold, or chest congestion. Denies shortness of breath, difficulty breathing, or wheezing. GASTROINTESTINAL: Denies abdominal pain. Some nausea. Denies constipation. Last BM: GENITOURINARY: Denies difficulty urinating, painful urination, burning, frequency, or blood in urine. MUSCULOSKELETAL: Some back and flank pain SKIN: Denies rash or skin lesions. NEUROLOGICAL: Denies altered mental status or loss of consciousness. Denies headache. Denies weakness or paralysis or loss of use of either side. Denies problems with gait or speech. Denies sensory or motor loss. ALL OTHER SYSTEMS REVIEWED AND NEGATIVE. Physical Exam - Vital signs Vitals: Pulse Resp BP Pulse Ox 54 L 24 H 106/57 L 99 10/16/16 20:37 10/16/16 20:37 10/16/16 20:37 10/16/16 20:37 - Notes Notes: General Appearance: Well nourished, alert, very weak and ill appearing. Vitals: reviewed, See vital signs table. Head: no swelling or tenderness to the head Eyes: PERRL, EOMI, Conjuctiva clear Mouth: No decreasd moisture Throat: No tonsillar inflammation, No airway obstruction, No lymphadenopathy Neck: Supple, no neck tenderness, No thyromegaly Lungs: No wheezing, No rales, No rhonci, No accessory muscle use, good air exchange bilaterally. Heart: Bradycardic rate, Regular rythm, No murmur, no rub Abdomen: Normal BS, soft, No rigidity, No abdominal tenderness, No guarding, no rebound, no abdominal masses, no organomegaly Pain palpation over the muscles extremities and over the paraspinal musculature on her back. Extremities: strength 5/5 in all extremities, good pulses in all extremities, no swelling or tenderness in the extremities, no edema. Skin: warm, dry, appropriate color, no rash Neuro: speech clear, oriented x 3, normal affect, responds appropriately to questions. Cranial nerves II through XII are intact. Distal sensation intact. Patient moves all extremities on its own without difficulty. Course - Re-evaluation Re-evalutation: 10/17/16 02:44 Patient started to become more bradycardic and then started to become hypotensive. Immediately when its of room. Replace pacer pads on her. She does have a history renal insufficiency but her potassium was not back yet. I decided to give HER-2 amps of calcium gluconate. Also gave her half milligram patch pain. This brought her heart rate from 38-45. She is still having hypotension with her blood pressure was 70s. I then started dopamine on her. I then retracted to the trauma bay and placed a central line. Dopamine has since improved her significantly. Her heart rate is now in the 90s and her blood pressures in the 120s systolically. She looks and feels much improved. Her thyroid medication was recently decreased from 125 to 112 g. First attempt a central line was in the internal jugular veins. Both veins were only partially collapsible on ultrasound suggesting he probably was a stricture. The wire would not pass further confirming this. I aborted further attempts and the internal jugulars. I then placed a central line in the right femoral vein without any complications. Is still not clear 100% exactly what is going on with the patient. She does have some new onset edema. This could be hypothyroid related. I'm still waiting for her urinalysis come back. Her renal function is worsening comparison to her previous renal function in the past. Dictation of this chart was performed using voice recognition software; therefore, there may be some unintended grammatical errors. - Vital Signs Vital signs: Temp Pulse Resp BP Pulse Ox 54 L 13 145/74 H 99 10/16/16 20:38 10/17/16 03:11 10/17/16 03:11 10/17/16 03:11 - Laboratory Result Diagrams: 10/17/16 01:02 10/17/16 01:02 Laboratory results interpreted by me: 10/17/16 10/17/16 10/17/16 01:02 01:02 01:02 RBC 3.12 L Hgb 8.7 L Hct 26.5 L RDW 15.7 H Plt Count 103 L VBG pH VBG HCO3 Chloride 113 H Carbon Dioxide 14 L BUN 57 H Creatinine 5.55 H Est GFR ( Amer) 9 L Est GFR (Non-Af Amer) 8 L Glucose 129 H POC Glucose Calcium 7.9 L AST 83 H ALT 97 H Alkaline Phosphatase 180 H Ammonia Creatine Kinase 223 H CK-MB (CK-2) 5.43 H TSH Urine Protein Urine Ketones Urine Blood Ur Leukocyte Esterase 10/17/16 10/17/16 10/17/16 01:02 01:02 01:02 RBC Hgb Hct RDW Plt Count VBG pH 7.15 L* VBG HCO3 13.3 L Chloride Carbon Dioxide BUN Creatinine Est GFR ( Amer) Est GFR (Non-Af Amer) Glucose POC Glucose Calcium AST ALT Alkaline Phosphatase Ammonia < 8.7 L Creatine Kinase CK-MB (CK-2) TSH 37.40 H Urine Protein Urine Ketones Urine Blood Ur Leukocyte Esterase 10/17/16 10/17/16 01:26 01:46 RBC Hgb Hct RDW Plt Count VBG pH VBG HCO3 Chloride Carbon Dioxide BUN Creatinine Est GFR ( Amer) Est GFR (Non-Af Amer) Glucose POC Glucose 124 H Calcium AST ALT Alkaline Phosphatase Ammonia Creatine Kinase CK-MB (CK-2) TSH Urine Protein 100 H Urine Ketones TRACE H Urine Blood SMALL H Ur Leukocyte Esterase MODERATE H - EKG Interpretation by Me Additional EKG results interpreted by me: 10/17/16 00:45 EKG is reviewed and interpreted by me. EKG shows sinus bradycardia with rate of [address] segment elevation or depression. No ischemic T wave inversions. IN interval, QRS duration are within normal range. QTc interval slightly prolonged. Old EKG for comparison is from 09/25/2014. 10/17/16 02:43 EKG #2 reviewed and interpreted by me. EKG shows sinus pericardia with rate [address] segment elevation or depression. No ischemic T wave inversions. IN level, QRS duration, QTC intervals are within normal range. - Transfer of Care Notes: 10/17/16 05:59 Patient's blood pressure and heart rate did respond well to dopamine. I did place central line and right femoral vein. Her urinalysis does show recurrent uric tract infection. This was a catheter urine specimen. She is in place and Rocephin. Her TSH is elevated. I'm not sure if her hypotension and bradycardia is related to the hypothyroidism, infection and sepsis, worthless, discoloration of the 2. I spoke with the hospitalist and he agrees to admit the patient. Patient does have some worsening renal function. She doesn't drinking less over last several days. I did give her some IV fluids. Dictation of this chart was performed using voice recognition software; therefore, there may be some unintended grammatical errors. Procedures - Central Line Right Femoral Central line pre-insertion: Sterile PPE donned, Betadine prep applied, Chloraprep applied, Sterile drapes applied Central line lumen type: Triple Anesthetic type: 1% Lidocaine mL's of anesthesia: 4 Ultrasound guided: Yes Line secured with sutures: Yes Central line post-insertion: Blood return from lumens, Biopatch applied, Sutured , Sterile dressing applied Number of attempts: 2 Complications: No Critical Care Note - Critical Care Note Total time excluding time spent on procedures (mins): 60 Comments: Critical care time on the patient not including time spent on procedures partially 45 minutes due to management of bradycardia, hypotension, and time spent speaking with family and admitting physician. Discharge - Discharge Clinical Impression: Bradycardia Hypothyroid Qualifiers: Hypothyroidism type: unspecified Qualified Code(s): E03.9 - Hypothyroidism, unspecified UTI (urinary tract infection) Qualifiers: Urinary tract infection type: site unspecified Hematuria presence: without hematuria Qualified Code(s): N39.0 - Urinary tract infection, site not specified Hypotension Qualifiers: Hypotension type: unspecified hypotension type Qualified Code(s): I95.9 - Hypotension, unspecified Condition: Stable Disposition: ADMITTED INPATIENT Admitting Provider: Hospitalist Unit Admitted: ICU Referrals: HILARY SOTOMAYOR NP [Primary Care Provider] - Follow up as needed
[2016-10-17] MEDS ORDERED: NORMAL SALINE 1000 ML 500 ML IV ONE (01:00)
[2016-10-17 01:16] LABS: ABSOLUTE LYMPHOCYTES (AUTO) 1.5 10^3/uL (0.5-4.7); ABSOLUTE MONOCYTES (AUTO) 0.3 10^3/uL (0.1-1.4); ABSOLUTE NEUT (AUTO) 5.5 10^3/uL (1.7-8.2); BASOPHILS % (AUTO) 0.2 % (0-2); EOSINOPHILS % (AUTO) 0.1 % (0-6); HEMATOCRIT 26.5 % (36.0-47.0); HEMOGLOBIN 8.7 g/dL (12.0-15.5); HGB HCT DIFFERENCE -0.4; LYMPHOCYTES % (AUTO) 19.9 % (13-45); MEAN CORPUSCULAR VOLUME 85 fl (80-97); MONOCYTES % (AUTO) 4.7 % (3-13); RED BLOOD COUNT 3.12 10^6/uL (3.72-5.28); RED CELL DISTRIBUTION WIDTH 15.7 % (11.5-14.0); SEGMENTED NEUTROPHILS % (AUTO) 75.1 % (42-78); VENOUS BLOOD BASE EXCESS -14.7 mmol/L; VENOUS BLOOD HCO3 13.3 mmol/L (20-32); WHITE BLOOD COUNT 7.3 10^3/uL (4.0-10.5)
[2016-10-17 01:25] LABS: VENOUS BLOOD PH 7.15 (7.30-7.42)
[2016-10-17] MEDS ORDERED: ATROPINE SULFATE INJ 1 MG/1 ML VIAL IV ONE (01:26)
[2016-10-17 01:30] LABS: ALANINE AMINOTRANSFERASE 97 U/L (9-52); ALBUMIN 3.6 g/dL (3.5-5.0); ALKALINE PHOSPHATASE 180 U/L (38-126); ANION GAP 16 (5-19); ASPARTATE AMINO TRANSFERASE 83 U/L (14-36); BILIRUBIN,TOTAL 0.4 mg/dL (0.2-1.3); BLOOD UREA NITROGEN 57 mg/dL (7-20); CALCIUM 7.9 mg/dL (8.4-10.2); CARBON DIOXIDE 14 mmol/L (22-30); CHLORIDE 113 mmol/L (98-107); CREATINE KINASE 223 U/L (30-135); CREATININE RESULT 5.55 mg/dL (0.52-1.25); GLUCOSE 129 mg/dL (75-110); POTASSIUM 3.9 mmol/L (3.6-5.0); SODIUM 142.6 mmol/L (137-145); TOTAL PROTEIN 6.7 g/dL (6.3-8.2)
[2016-10-17 01:42] LABS: CREATINE KINASE MB 5.43 ng/mL (<4.55)
[2016-10-17 01:44] LABS: TROPONIN I < 0.012 ng/mL
[2016-10-17] MEDS ORDERED: CALCIUM GLUCONATE 1000 MG/10 ML INJ IV ONE ×2 (01:45→06:17)
[2016-10-17] MEDS ORDERED: DOPAMINE HCL/DEXTROSE 5%-WATER 800 MG/250 ML RTUINJ IV ONE (01:47)
[2016-10-17] MEDS ORDERED: FENTANYL CITRATE INJ/PF 100 MCG/2 ML AMPUL IV ONE (02:47)
[2016-10-17 02:57] LABS: APPEARANCE,URINE TURBID; BILIRUBIN,URINE NEGATIVE (NEGATIVE); GLUCOSE, URINE NEGATIVE (NEGATIVE); KETONES,URINE TRACE mg/dL (NEGATIVE); LEUKOCYTE ESTERASE,URINE MODERATE (NEGATIVE); NITRITE,URINE NEGATIVE (NEGATIVE); PROTEIN,URINE 100 mg/dL (NEGATIVE); URINE SPECIFIC GRAVITY 1.017; UROBILINOGEN,URINE NEGATIVE mg/dL (<2.0)
[2016-10-17] MEDS ORDERED: CEFTRIAXONE INJ 1000 MG VIAL IV ONE (03:11)
[2016-10-17] MEDS ORDERED: ONDANSETRON HCL INJ/PF 4 MG/2 ML SDV IV ONE (03:21)
[2016-10-17] MEDS ORDERED: ONDANSETRON HCL INJ/PF 4 MG/2 ML SDV ONE (03:22)
[2016-10-17] MEDS ORDERED: ACETAMINOPHEN 325 MG TABLET PO ONE (03:44)
[2016-10-17] MEDS ORDERED: CYCLOBENZAPRINE HCL 10 MG TABLET PO PRN ×2 (05:45→19:33)
[2016-10-17] MEDS ORDERED: DEXTROSE 50%-WATER 25 GM/50 ML DISP.SYRIN IV PRN ×2 (05:48)
[2016-10-17] MEDS ORDERED: DEXTROSE 40% GEL 15 GM TUBE PO PRN ×2 (05:48)
[2016-10-17] MEDS ORDERED: GLUCAGON,HUMAN RECOMB 1 MG INJ IM PRN (05:48)
[2016-10-17] MEDS ORDERED: IPRATROPIUM/ALBUTEROL 0.5-2.5 MG/3 ML AMPUL NEB PRN (05:48)
[2016-10-17] MEDS ORDERED: INSULIN LISPRO 100 UNIT/ML 3 ML VIAL SUBCUT PRN (05:48)
[2016-10-17] MEDS ORDERED: ACETAMINOPHEN 325 MG TABLET PO PRN (05:48)
[2016-10-17] MEDS ORDERED: DOPAMINE HCL/DEXTROSE 5%-WATER 800 MG/250 ML RTUINJ IV PRN (05:56)
[2016-10-17] MEDS ORDERED: HEPARIN SOD (PORCINE) 5,000 UNIT/ML 1 ML SYRINGE SUBCUT SCH (06:00)
[2016-10-17] MEDS ORDERED: VANCOMYCIN HCL 0 MG in DEXTROSE 5%-WATER 250 ML IV NR (06:00)
[2016-10-17 06:07] LABS: PROTHROMBIN TIME 13.7 SEC (11.4-15.4)
[2016-10-17] MEDS ORDERED: VANCOMYCIN HCL 1,500 MG in DEXTROSE 5%-WATER 250 ML IV ONE (06:30)
--- NOTE | 2016-10-17 06:42 | PDOC H&P ---
History of Present Illness Admission Date/PCP: 10/17/16 05:49 HILARY SOTOMAYOR NP Patient complains of: Confusion and fever History of Present Illness: DAVID CAMARGO is a 61 year old female with a past medical history of stage IV chronic kidney disease, insulin dependent diabetes, hypothyroidism, anemia of chronic illness, right foot ulcer, diabetic neuropathy and recurrent pyelonephritis. Who'd been her usual state of health until approximately 48 hours ago developing confusion then fever and left-sided back pain and reduced urine output prompting to seek evaluation emergency room. She's found to have pyuria and a left-sided pyelonephritis by CT with severe sepsis requiring dopamine and IV fluid bolus. Referred to the hospitalist for admission. Patient denies any recent change in medications currently denies shortness of breath chest pain nausea vomiting and lying flat setting 98% on room air. Past Medical History Cardiac Medical History: Reports: Hyperlipidema, Hypertension Denies: Coronary Artery Disease, Myocardial Infarction Pulmonary Medical History: Denies: Asthma, Bronchitis, Chronic Obstructive Pulmonary Disease (COPD), Pneumonia, Tuberculosis Neurological Medical History: Denies: Seizures Endocrine Medical History: Reports: Diabetes Mellitus Type 1, Diabetes Mellitus Type 2, Hypothyroidism, Obesity Renal/ Medical History: Reports: Chronic Kidney Disease Musculoskeltal Medical History: Denies: Arthritis Psychiatric Medical History: Reports: Depression Hematology: Denies: Anemia Past Surgical History Past Surgical History: Reports: Section, Tubal Ligation Denies: Pacemaker Social History Lives with: Family Smoking Status: Never Smoker Frequency of Alcohol Use: None Hx Recreational Drug Use: No Drugs: None Hx Prescription Drug Abuse: No - Advance Directive Resuscitation Status: Full Code Family History Family History: Hypertension Parental Family History Reviewed: Yes Children Family History Reviewed: Yes Sibling(s) Family History Reviewed.: Yes Medication/Allergy Home Medications: Atorvastatin Calcium [Lipitor 20 mg Tablet] 20 mg PO QHS 09/26/16 Cyanocobalamin (Vitamin B-12) [Vitamin B-12 Inj 1000 Mcg/1 ml Vial] 1,000 mcg SQ [id number] 09/26/16 Ferrous Sulfate [Feosol 325 mg Tablet] 325 mg PO BID 09/26/16 Insulin Lispro [Humalog Insulin (Lispro) 100 unit/mL] 0 units SQ TIDP PRN Levothyroxine Sodium [Synthroid 0.112 mg Tablet] 0.112 mg PO QAM 09/26/16 Pregabalin [Lyrica 75 mg Capsule] 75 mg PO BID 09/26/16 Amlodipine Besylate [Norvasc 10 mg Tablet] 10 mg PO DAILY #30 tablet 10/01/16 Aspirin [Ecotrin 81 mg EC Tablet] 81 mg PO DAILY #90 tabec 10/01/16 Clonidine HCl [Catapres 0.1 mg Tablet] 0.1 mg PO QHS #30 tablet 10/01/16 Cyclobenzaprine HCl [Flexeril 10 mg Tablet] 5 mg PO Q8HP PRN tablet 10/01/16 Fluticasone Propionate [Flonase Nasal [place] 50 Mcg/[place] 16 gm] 1 spray NASL Q12 #1 spray.pump 10/01/16 Hydralazine HCl [Apresoline 50 mg Tablet] 25 mg PO Q8 #90 tablet 10/01/16 Insulin Glargine,Hum.rec.anlog [Lantus Insulin 100 Unit/mL] 15 unit SUBCUT QHS insuln.pen 10/01/16 Insulin Glargine,Hum.rec.anlog [Lantus Insulin 100 Unit/mL] 17 unit SUBCUT DAILY insuln.pen 10/01/16 Sennosides/Docusate 8.6-50 mg [Senna Plus Tablet] 2 each PO BID #60 tablet 10/01 Allergies/Adverse Reactions: Iodinated Contrast Media - Oral and [IV Dye, Iodine Containing] Allergy ( Intermediate, Verified 10/16/16 20:44) Vomiting morphine [Morphine] Allergy (Intermediate, Verified 10/16/16 20:44) Review of Systems ROS unobtainable: Due to mental status Physical Exam Vital Signs: Temp Pulse Resp BP Pulse Ox 54 L 13 145/74 H 99 10/16/16 20:38 10/17/16 03:11 10/17/16 03:11 10/17/16 03:11 General appearance: PRESENT: cooperative, morbidly obese, severe distress Head exam: PRESENT: atraumatic, normocephalic Eye exam: PRESENT: conjunctiva pink, EOMI, PERRLA. ABSENT: scleral icterus Ear exam: PRESENT: normal external ear exam Mouth exam: PRESENT: dry mucosa, neck supple, tongue midline Neck exam: ABSENT: carotid bruit, JVD, lymphadenopathy, thyromegaly Respiratory exam: PRESENT: clear to auscultation grupo, tachypnea. ABSENT: rales , rhonchi, wheezes Pulses: PRESENT: normal dorsalis pedis pul Vascular exam: PRESENT: normal capillary refill GI/Abdominal exam: PRESENT: normal bowel sounds, soft. ABSENT: distended, guarding, mass, organolmegaly, rebound, tenderness Rectal exam: PRESENT: deferred Extremities exam: PRESENT: pedal edema, +1 edema, other - Right foot ulcers of the first and second metatarsal phalangeal head dry without exudate nontender secondary to diabetic neuropathy. ABSENT: tenderness Musculoskeletal exam: PRESENT: other - Right foot ulcers of the first and second metatarsal phalangeal head dry without exudate nontender secondary to diabetic neuropathy Neurological exam: PRESENT: alert, awake, oriented to person, oriented to place , oriented to time, oriented to situation, CN II-XII grossly intact. ABSENT: motor sensory deficit Psychiatric exam: PRESENT: appropriate affect, normal mood. ABSENT: homicidal ideation, suicidal ideation Skin exam: PRESENT: dry, intact, warm, other - Right foot ulcers of the first and second metatarsal phalangeal head dry without exudate nontender secondary to diabetic neuropathy. ABSENT: cyanosis, rash Results Impressions: Chest X-Ray 10/16/16 19:35 IMPRESSION: NO ACUTE RADIOGRAPHIC FINDING IN THE CHEST. Limited or Localized CT 10/17/16 03:15 IMPRESSION: Relative to 09/13/2016 CT imaging: Stable CT appearance of the abdomen and pelvis, again demonstrating diminutive right kidney with apparent compensatory hypertrophy of the left kidney. Previously described left perinephric fat stranding and retroperitoneal lymphadenopathy persist. No evidence of urolithiasis. Assessment & Plan - Diagnosis (1) Severe sepsis Is this a current diagnosis for this admission?: YesPlan: Secondary to left-sided pyelonephritis and complicated by diabetes and chronic kidney disease, no evidence for significant volume overload she will receive an IV fluid challenge and continued pressor admission to the ICU with empiric antibiotics (2) Pyelonephritis Is this a current diagnosis for this admission?: YesPlan: Vancomycin with dosing by pharmacy, Rocephin, follow-up CBC and blood and urine culture (3) Acute worsening of stage 4 chronic kidney disease Is this a current diagnosis for this admission?: YesPlan: No evidence for volume overload currently lying flat and comfortable on room air , avoid nephrotoxic meds and doses, Heredia catheter for monitoring strict I's and O's and nephrology consult (4) Bradycardia Is this a current diagnosis for this admission?: YesPlan: Previously noted bradycardia with clonidine, discontinue clonidine, dopamine initiated improving heart rate from 52 mid 80s. (5) Hypothyroid Qualifiers: Hypothyroidism type: unspecified Qualified Code(s): E03.9 - Hypothyroidism, unspecified Is this a current diagnosis for this admission?: YesPlan: Replaced on Synthroid (6) Diabetes 1.5, managed as type 1 Is this a current diagnosis for this admission?: YesPlan: Long-acting insulin with sliding scale coverage - Time Time Spent: Greater than 70 Minutes
[2016-10-17 07:10] LABS: URINE METHADONE SCREEN NEGATIVE; URINE PHENCYCLIDINE SCREEN NEGATIVE
[2016-10-17 07:19] LABS: URINE BARBITURATES SCREEN NEGATIVE
[2016-10-17 07:42] LABS: URINE OPIATES LOW NEGATIVE
[2016-10-17] MEDS ORDERED: LEVOTHYROXINE SODIUM 0.112 MG TABLET PO SCH (08:00)
[2016-10-17] MEDS ORDERED: INFLUENZA ADLT QUAD (36MOS+) 2016-17 VAC 0.5 ML SYR IM PRN (08:10)
[2016-10-17] MEDS: NORMAL SALINE 1000 ML 1,000 ML IV SCH ×2 (08:24→08:28)
[2016-10-17] MEDS ORDERED: DORIPENEM 500 MG in NORMAL SALINE 100 ML IV SCH (08:30)
[2016-10-17] MEDS ORDERED: OXYCODONE-ACETAMINOPHEN 5-325 MG TABLET PO PRN (08:41)
[2016-10-17] MEDS ORDERED: PROMETHAZINE HCL 25 MG SUPP.RECT PR PRN (08:43)
--- NOTE | 2016-10-17 09:12 | PDOC PROGRESS REPORT ---
Subjective Progress Note for:: 10/17/16 Subjective:: Patient complains of severe back pain. She reports that all pain medications make her vomit but she does normally okay with Percocet but will still have emesis. Patient denies fevers. Admits to chills. Patient admits to headache. Patient denies chest pain, shortness of breath, abdominal pain, nausea, vomiting, fevers, diarrhea, constipation, new onset weakness. Physical Exam Vital Signs: Temp Pulse Resp BP Pulse Ox 92.5 F L 83 27 H 118/67 99 10/17/16 08:00 10/17/16 08:00 10/17/16 08:00 10/17/16 08:00 10/17/16 08:00 Intake & Output 10/16/16 10/17/16 10/18/16 06:59 06:59 06:59 Output Total 25 Balance -25 Weight 96.3 kg Exam: General: Awake alert and oriented x3, no acute respiratory distress HEENT: AT/NC, right pupil unresponsive, EOMI, oropharynx is moist, pink, no scleral icterus, no conjunctival injection Neck: Right neck with ecchymosis and palpable cord tender to palpation, trachea midline Chest: Clear to auscultation bilaterally, no wheezes rhonchi or rales CV: Regular rate and rhythm, normal S1 and S2, no rub or gallop; 2/6 sm lusb Abdomen: Soft, diffusely mildly tender to palpation, nondistended, hypoactive bowel sounds; no rebound, rigidity, or guarding Extremities: No cyanosis, clubbing; 1+ edema Neuro: Cranial nerves II through XII are grossly intact without focal deficits; awake alert and oriented x3 Psych: Normal mood and affect Results Laboratory Results: 10/17/16 06:44 Magnesium 2.1 Impressions: Chest X-Ray 10/16/16 19:35 IMPRESSION: NO ACUTE RADIOGRAPHIC FINDING IN THE CHEST. Limited or Localized CT 10/17/16 03:15 IMPRESSION: Relative to 09/13/2016 CT imaging: Stable CT appearance of the abdomen and pelvis, again demonstrating diminutive right kidney with apparent compensatory hypertrophy of the left kidney. Previously described left perinephric fat stranding and retroperitoneal lymphadenopathy persist. No evidence of urolithiasis. Assessment & Plan - Diagnosis (1) Septic shock Is this a current diagnosis for this admission?: YesPlan: Patient hypothermic, hypotensive, and with obvious source of pyelonephritis. Patient with pyelonephritis of her only functioning kidney. Will obtain kidney ultrasound to evaluate for obstructed stone. None seen on CT. Patient has had recent kidney ultrasound within the last 2 weeks which reveals small nonobstructing stones. Have started patient on doripenem pending culture and sensitivity. Patient currently requiring dopamine. Maintain map greater than 65. Will attempt to give albumin and transition off of dopamine. (2) Acute worsening of stage 4 chronic kidney disease Is this a current diagnosis for this admission?: YesPlan: Patient again reiterates that she does not want dialysis and does understand that her refusal of this may mean that she would . Will continue to gently hydrate patient. Currently no urine output. (3) Bradycardia Is this a current diagnosis for this admission?: YesPlan: Have stopped patient's clonidine. Patient currently on dopamine. Will attempt to wean. (4) Hypothyroid Qualifiers: Hypothyroidism type: unspecified Qualified Code(s): E03.9 - Hypothyroidism, unspecified Is this a current diagnosis for this admission?: YesPlan: Patient's TSH is improving, but in light of current use of dopamine we will transition to IV Synthroid for improved absorption. (5) Pyelonephritis Is this a current diagnosis for this admission?: YesPlan: Have place patient on doripenem. Patient has history of Escherichia coli pyelonephritis. Concern for ESBL. (6) Diabetes 1.5, managed as type 1 Is this a current diagnosis for this admission?: YesPlan: Accu-Cheks with sliding scale. If patient is taking in good oral we will resume her Lantus. (7) PAD (peripheral artery disease) Is this a current diagnosis for this admission?: Yes (8) Severe obesity (BMI 35.0-35.9 with comorbidity) Is this a current diagnosis for this admission?: Yes (9) Traumatic ecchymosis of neck Qualifiers: Encounter type: initial encounter Qualified Code(s): S10.93XA - Contusion of unspecified part of neck, initial encounter Is this a current diagnosis for this admission?: YesPlan: Patient with palpable cord and ecchymosis of right neck after failed central line placement. Will obtain limited Doppler of the neck to evaluate for clot. (10) Thrombocytopenia Is this a current diagnosis for this admission?: YesPlan: Likely secondary to sepsis. Will hold patient's heparin pending repeat CBC. (11) GI prophylaxis Is this a current diagnosis for this admission?: YesPlan: Patient on Prevacid (12) DVT prophylaxis Is this a current diagnosis for this admission?: YesPlan: SCDs and VANIA miner, heparin pending repeat platelets. - Time Critical Time spent with patient: 35 or more minutes Medications reviewed and adjusted accordingly: Yes
[2016-10-17] MEDS: SENNOSIDES/DOCUSATE 8.6-50 MG 1 EACH TABLET PO SCH ×2 (09:30→17:06)
[2016-10-17 09:32] LABS: HEMATOCRIT 25.4 % (36.0-47.0); HEMOGLOBIN 8.2 g/dL (12.0-15.5); HGB HCT DIFFERENCE -0.8; MEAN CORPUSCULAR HEMOGLOBIN 27.5 pg (27.0-33.4); MEAN CORPUSCULAR HGB CONC 32.3 g/dL (32.0-36.0); MEAN CORPUSCULAR VOLUME 85 fl (80-97); RED BLOOD COUNT 2.98 10^6/uL (3.72-5.28); RED CELL DISTRIBUTION WIDTH 15.8 % (11.5-14.0)
[2016-10-17] MEDS: DORIPENEM 250 MG in NORMAL SALINE 50 ML IV SCH ×2 (09:42→22:36)
[2016-10-17] MEDS: ALBUMIN HUMAN 50 ML IV SCH ×4 (09:42→13:45)
[2016-10-17] MEDS: DOCUSATE SODIUM 100 MG CAPSULE PO SCH ×2 (09:43→17:06)
[2016-10-17 09:53] LABS: ALANINE AMINOTRANSFERASE 99 U/L (9-52); ALKALINE PHOSPHATASE 173 U/L (38-126); ANION GAP 13 (5-19); ASPARTATE AMINO TRANSFERASE 73 U/L (14-36); BILIRUBIN,TOTAL 0.3 mg/dL (0.2-1.3); BLOOD UREA NITROGEN 55 mg/dL (7-20); CALCIUM 7.7 mg/dL (8.4-10.2); CARBON DIOXIDE 15 mmol/L (22-30); CHLORIDE 115 mmol/L (98-107); CREATININE RESULT 5.26 mg/dL (0.52-1.25); GLUCOSE 129 mg/dL (75-110); MAGNESIUM 1.8 mg/dL (1.6-2.3); POTASSIUM 3.6 mmol/L (3.6-5.0); SODIUM 143.3 mmol/L (137-145); TOTAL PROTEIN 6.3 g/dL (6.3-8.2)
[2016-10-17] MEDS ORDERED: INSULIN GLARGINE,HUM.REC.ANLOG 300 UNIT/3 ML INSULN.PEN SUBCUT SCH ×2 (10:00→22:00)
[2016-10-17] MEDS ORDERED: ASPIRIN 81 MG TABLET, ENT COATED PO SCH (10:00)
[2016-10-17] MEDS ORDERED: LEVOTHYROXINE SODIUM INJ/PF 0.5 MG SDV IV ONE (10:00)
[2016-10-17] MEDS ORDERED: FERROUS SULFATE 325 MG TABLET PO SCH (10:00)
[2016-10-17] MEDS ORDERED: AMLODIPINE BESYLATE 10 MG TABLET PO SCH ×2 (10:00)
[2016-10-17 10:11] LABS: BAND NEUTROPHILS % (MANUAL) 1 % (3-5); BASOPHILS % (MANUAL) 0 % (0-2); EOSINOPHILS % (MANUAL) 0 % (0-6); LYMPHOCYTES % (MANUAL) 18 % (13-45); TOTAL CELLS COUNTED 100
[2016-10-17 10:13] LABS: ANISOCYTOSIS SLIGHT
--- NOTE | 2016-10-17 10:36 | EKG REPORT ---
SEVERITY:- NORMAL ECG - SINUS RHYTHM NONSPECIFIC T CHANGES : Confirmed by: Vladislav Hercules 17-Oct-2016 10:35:12
[2016-10-17] MEDS: ONDANSETRON HCL INJ/PF 4 MG/2 ML SDV IV PRN ×2 (10:55→18:26)
[2016-10-17] MEDS: FLUTICASONE NASAL SPRAY 50 MCG/SPRY 120 SPRAY/16 GM NASL SCH ×2 (11:59→22:38)
[2016-10-17] MEDS: NORMAL SALINE 1000 ML 1,000 ML IV PRN ×2 (12:00→18:44)
[2016-10-17 13:04] LABS: ARTERIAL BLOOD O2 SATURATION 96.9 % (94-98)
[2016-10-17] MEDS ORDERED: DEXTROSE 5%-WATER 1000 ML 1,000 ML with SODIUM BICARBONATE 150 ML IV PRN ×2 (15:43)
[2016-10-17] MEDS ORDERED: DEXTROSE 5%-WATER 1000 ML 1,000 ML with SODIUM BICARBONATE 150 MEQ IV PRN ×2 (16:09)
--- NOTE | 2016-10-17 16:33 | PDOC CONSULTATION ---
Consultation Consult Date: 10/17/16 Consult reason:: Acute on chronic kidney disease stage IV in the background of acute pyelonephritis with septic shock History of Present Illness Admission Date/PCP: 10/17/16 05:49 HILARY SOTOMAYOR NP History of Present Illness: DAVID CAMARGO is a 61 year old female with a past medical history of stage IV chronic kidney disease, insulin dependent diabetes, hypothyroidism, anemia of chronic illness, right foot ulcer, diabetic neuropathy and recurrent pyelonephritis. She had been in her usual state of health until approximately 48 hours ago when she suddenly became confused , orthostatic and experienced left-sided back pain and reduced urine output prompting to seek evaluation emergency room. She is found to have symptoms suggestive of for acute pyelonephritis and septic shock. She's been admitted to the ICU for acute fluid resuscitation along with starting of pressors and an IV antibiotics and cultures are pending. Patient is currently confused and oriented 1 only. However her daughter states that she is better than what she was before. She states she has got more of a right-sided flank pain. She was last here a couple of weeks ago with the severe hypertension and possible TIA. A week prior to that she was in for apparently acute pyelonephritis. She states the pain usually happens on the right side. However the CT scan on review shows that she has an atrophic right kidney with a compensatory enlarged left kidney with some perinephric stranding which is the same as when she was here for acute pyelonephritis a few weeks earlier indicating that she most likely had a left-sided pyelonephritis. According to the patient undergoing daughter she has been having recurrent attacks for the last couple of years. She seems to be quite sure that it always happens on the right side however though. I had seen in the office this last week after she was discharged from the hospital recently. Being affected area mind she had stated into the front of her daughter that she did not want to go on dialysis and she understood the implications of that which included from heart failure or hyperkalemia and uremia. Currently a DO NOT RESUSCITATE. Past Medical History Cardiac Medical History: Reports: Hyperlipidemia, Hypertension-primary Denies: Coronary Artery Disease, Myocardial Infarction Pulmonary Medical History: Denies: Asthma, Bronchitis, Chronic Obstructive Pulmonary Disease (COPD), Pneumonia, Tuberculosis Neurological Medical History: Denies: Seizures Endocrine Medical History: Reports: Diabetes Mellitus Type 2, Hypothyroidism, Obesity Renal/ Medical History: Reports: Chronic Kidney Disease Stage IV Musculoskeltal Medical History: Denies: Arthritis Psychiatric Medical History: Reports: Depression Past Surgical History Past Surgical History: Reports: Section, Tubal Ligation Denies: Pacemaker Social History Lives with: Family Smoking Status: Never Smoker Frequency of Alcohol Use: None Hx Recreational Drug Use: No Drugs: None Hx Prescription Drug Abuse: No - Advance Directive Resuscitation Status: Full Code Family History Parental Family History Reviewed: Yes - negative for ESRD/ckd Children Family History Reviewed: No Sibling(s) Family History Reviewed.: No Medication/Allergy Home Medications: Amlodipine Besylate [Norvasc 10 mg Tablet] 10 mg PO DAILY 10/17/16 Aspirin [Aspirin EC] 81 mg PO DAILY 10/17/16 Atorvastatin Calcium [Lipitor 20 mg Tablet] 20 mg PO QHS 10/17/16 Clonidine HCl [Catapres 0.1 mg Tablet] 0.1 mg PO QHS 10/17/16 Cyanocobalamin (Vitamin B-12) [Vitamin B-12 Inj 1000 Mcg/1 ml Vial] 1,000 mcg IM [id number] 10/17/16 Cyclobenzaprine HCl [Flexeril 5 mg Tablet] 5 mg PO Q8HP PRN 10/17/16 Ferrous Sulfate [Feosol 325 mg Tablet] 325 mg PO BID 10/17/16 Fluticasone Propionate [Flonase Nasal [place] 50 Mcg/[place] 16 gm] 1 spray NASL Q12 10/17/16 Hydralazine HCl [Apresoline 25 mg Tablet] 25 mg PO Q8 10/17/16 Insulin Glargine,Hum.rec.anlog [Lantus] 15 unit SQ QHS 10/17/16 Insulin Glargine,Hum.rec.anlog [Lantus] 17 unit SQ DAILY 10/17/16 Insulin Lispro [Humalog] 0 unit SQ TIDP PRN 10/17/16 Levothyroxine Sodium [Synthroid 0.112 mg Tablet] 112 mcg PO QAM 10/17/16 Pregabalin [Lyrica 75 mg Capsule] 75 mg PO Q12 10/17/16 Sennosides [Senna] 2 tab PO BID 10/17/16 Allergies/Adverse Reactions: Iodinated Contrast Media - Oral and [IV Dye, Iodine Containing] Allergy ( Intermediate, Verified 10/16/16 20:44) Vomiting morphine [Morphine] Allergy (Intermediate, Verified 10/16/16 20:44) Review of Systems Review of Systems: Constitutional: PRESENT: as per HPI. ABSENT: , headache(s), weight gain, weight loss Eyes: ABSENT: visual disturbances Ears: ABSENT: hearing changes Cardiovascular: ABSENT: chest pain, dyspnea on exertion, edema, orthropnea, palpitations Respiratory: ABSENT: cough, hemoptysis Gastrointestinal: ABSENT: abdominal pain, constipation, diarrhea, hematemesis, hematochezia, nausea, vomiting Genitourinary: ABSENT: dysuria, hematuria Musculoskeletal: ABSENT: joint swelling Integumentary: ABSENT: rash, wounds Neurological: ABSENT: focal weakness, syncope Psychiatric: ABSENT: anxiety, depression, homicidal ideation, suicidal ideation Endocrine: ABSENT: cold intolerance, heat intolerance, menstrual abnormalities, polydipsia, polyuria Hematologic/Lymphatic: ABSENT: easy bleeding, easy bruising, lymphadenopathy Physical Exam Vital Signs: Temp Pulse Resp BP Pulse Ox 96.1 F L 64 17 114/70 99 10/17/16 16:00 10/17/16 16:00 10/17/16 16:00 10/17/16 16:00 10/17/16 16:00 Intake & Output 10/16/16 10/17/16 10/18/16 06:59 06:59 06:59 Intake Total 357 Output Total 62 Balance 295 Weight 96.3 kg General appearance: PRESENT: no acute distress, disheveled Head exam: PRESENT: normocephalic Eye exam: PRESENT: conjunctiva pink, EOMI, PERRLA. ABSENT: nystagmus, periorbital swelling, scleral icterus Ear exam: PRESENT: normal external ear exam Mouth exam: PRESENT: moist, neck supple Neck exam: ABSENT: lymphadenopathy, meningismus, tenderness, thyromegaly, tracheal deviation Respiratory exam: PRESENT: clear to auscultation grupo. ABSENT: crackles, rales, rhonchi Cardiovascular exam: PRESENT: +S1, +S2, systolic murmur GI/Abdominal exam: PRESENT: soft, tenderness - she is tender in both the upper right and left quadrants but she is definitely tender in the right renal angle. No Guarding though.. ABSENT: distended, firm, guarding, mass, organomegaly, rebound Extremities exam: ABSENT: pedal edema Neurological exam: PRESENT: altered, oriented to person, oriented to place. ABSENT: oriented to time Skin exam: PRESENT: dry. ABSENT: cyanosis, erythema, mottled, rash Results Laboratory Results: 10/17/16 09:10 10/17/16 09:10 10/17/16 10/17/16 10/17/16 06:44 09:10 09:10 WBC 10.0 RBC 2.98 L Hgb 8.2 L Hct 25.4 L MCV 85 MCH 27.5 MCHC 32.3 RDW 15.8 H Plt Count 116 L Seg Neutrophils % Not Reportable Lymphocytes % Not Reportable Monocytes % Not Reportable Eosinophils % Not Reportable Basophils % Not Reportable Absolute Neutrophils Not Reportable Absolute Lymphocytes Not Reportable Absolute Monocytes Not Reportable Absolute Eosinophils Not Reportable Absolute Basophils Not Reportable Carbonic Acid HCO3/H2CO3 Ratio ABG pH ABG pCO2 ABG pO2 ABG HCO3 ABG O2 Saturation ABG Base Excess FiO2 Sodium 143.3 Potassium 3.6 Chloride 115 H Carbon Dioxide 15 L Anion Gap 13 BUN 55 H Creatinine 5.26 H Est GFR ( Amer) 10 L Est GFR (Non-Af Amer) 8 L Glucose 129 H Calcium 7.7 L Magnesium 2.1 1.8 Total Bilirubin 0.3 AST 73 H ALT 99 H Alkaline Phosphatase 173 H Total Protein 6.3 Albumin 3.0 L 10/17/16 12:35 WBC RBC Hgb Hct MCV MCH MCHC RDW Plt Count Seg Neutrophils % Lymphocytes % Monocytes % Eosinophils % Basophils % Absolute Neutrophils Absolute Lymphocytes Absolute Monocytes Absolute Eosinophils Absolute Basophils Carbonic Acid 1.19 HCO3/H2CO3 Ratio 11:1 ABG pH 7.14 L* ABG pCO2 39.4 ABG pO2 115.6 H ABG HCO3 13.1 L ABG O2 Saturation 96.9 ABG Base Excess -15.0 FiO2 2L Sodium Potassium Chloride Carbon Dioxide Anion Gap BUN Creatinine Est GFR ( Amer) Est GFR (Non-Af Amer) Glucose Calcium Magnesium Total Bilirubin AST ALT Alkaline Phosphatase Total Protein Albumin Impressions: Chest X-Ray 10/17/16 00:00 IMPRESSION: Moderate cardiomegaly. No acute infiltrates. Renal Ultrasound 10/17/16 00:00 IMPRESSION: Right-sided intrarenal nonobstructive calculi. No right hydronephrosis. Stable Small right kidney. Normal size left kidney without stones, cysts, masses, or hydronephrosis Bladder decompressed by a Heredia catheter Venous Doppler Study 10/17/16 00:00 IMPRESSION: No thrombosis of the right internal jugular or subclavian vein. Limited or Localized CT 10/17/16 03:15 IMPRESSION: Relative to 09/13/2016 CT imaging: Stable CT appearance of the abdomen and pelvis, again demonstrating diminutive right kidney with apparent compensatory hypertrophy of the left kidney. Previously described left perinephric fat stranding and retroperitoneal lymphadenopathy persist. No evidence of urolithiasis. Assessment & Plan - Diagnosis (1) Metabolic acidosis Plan: Replace. Orders have been placed discussed with the treating nurse Sabra (2) Acute worsening of stage 4 chronic kidney disease Is this a current diagnosis for this admission?: YesPlan: Patient is in septic shock with obvious ATN related acute worsening of her ckd stage IV. lites are stable but she has acidosis. No evidences of fluid overload. She is not a candidate for renal replacements given the fact that she has expressed her mind that she would not want to be put on that modality of treatment. Continue on present lines of management. Needs fluid adjustments that are being done monitor status. (3) Pyelonephritis Is this a current diagnosis for this admission?: YesPlan: On IV antibiotics. Because of her recurring infection I would propose that she be referred to a tertiary care urology Center for possible nephrectomy if it is deemed to be on the right side which is atrophied as well. (4) Septic shock Is this a current diagnosis for this admission?: YesPlan: Will titrate fluids. Continue dopamine for the moment which might need to be replaced with Levophed if she does not improve on the current dosing of dopamine.
[2016-10-17] MEDS: LANSOPRAZOLE 15 MG TAB.RAP.DR PO SCH (16:36)
[2016-10-17] MEDS ORDERED: PROMETHAZINE HCL 25 MG SUPP.RECT PR ONE (17:08)
[2016-10-17] MEDS ORDERED: DEXTROSE 5%-WATER 250 ML with NOREPINEPHRINE BITARTRATE 4 MG IV PRN ×2 (18:41)
[2016-10-17] MEDS ORDERED: PHARMACY COMMUNICATION ORDER MC NR (19:15)
[2016-10-17] MEDS ORDERED: ACETAMINOPHEN SOLN 325 MG/10.15 ML UDCUP NG PRN (19:27)
[2016-10-17] MEDS ORDERED: CYCLOBENZAPRINE HCL 10 MG TABLET NG PRN (19:30)
[2016-10-17] MEDS ORDERED: CEFTRIAXONE 1 GM/D5W RTU 1 GM/50 ML RTUPB IV SCH (22:00)
[2016-10-17] MEDS ORDERED: ATORVASTATIN CALCIUM 20 MG TABLET PO SCH ×2 (22:00)
[2016-10-17] MEDS ORDERED: CLONIDINE HCL 0.1 MG TABLET PO SCH (22:00)
[2016-10-18] MEDS: ONDANSETRON HCL INJ/PF 4 MG/2 ML SDV IV PRN (02:39)
[2016-10-18] MEDS: NORMAL SALINE 1000 ML 1,000 ML IV PRN (02:39)
[2016-10-18 07:33] LABS: ALANINE AMINOTRANSFERASE 85 U/L (9-52); ALBUMIN 4.1 g/dL (3.5-5.0); ALKALINE PHOSPHATASE 178 U/L (38-126); ANION GAP 18 (5-19); ASPARTATE AMINO TRANSFERASE 52 U/L (14-36); BILIRUBIN,TOTAL 0.6 mg/dL (0.2-1.3); BLOOD UREA NITROGEN 53 mg/dL (7-20); CALCIUM 7.5 mg/dL (8.4-10.2); CARBON DIOXIDE 13 mmol/L (22-30); CHLORIDE 113 mmol/L (98-107); CREATININE RESULT 5.98 mg/dL (0.52-1.25); GLUCOSE 157 mg/dL (75-110); PHOSPHORUS 6.8 mg/dL (2.5-4.5); POTASSIUM 4.5 mmol/L (3.6-5.0); SODIUM 143.6 mmol/L (137-145); TOTAL PROTEIN 6.8 g/dL (6.3-8.2)
[2016-10-18 07:35] LABS: ABSOLUTE LYMPHOCYTES (AUTO) 1.3 10^3/uL (0.5-4.7); ABSOLUTE MONOCYTES (AUTO) 0.5 10^3/uL (0.1-1.4); ABSOLUTE NEUT (AUTO) 7.4 10^3/uL (1.7-8.2); BASOPHILS % (AUTO) 0.1 % (0-2); EOSINOPHILS % (AUTO) 0.1 % (0-6); HEMATOCRIT 24.2 % (36.0-47.0); HGB HCT DIFFERENCE -0.5; LYMPHOCYTES % (AUTO) 14.3 % (13-45); MEAN CORPUSCULAR HEMOGLOBIN 28.2 pg (27.0-33.4); MEAN CORPUSCULAR HGB CONC 32.8 g/dL (32.0-36.0); MEAN CORPUSCULAR VOLUME 86 fl (80-97); MONOCYTES % (AUTO) 4.9 % (3-13); RED BLOOD COUNT 2.81 10^6/uL (3.72-5.28); RED CELL DISTRIBUTION WIDTH 15.9 % (11.5-14.0); SEGMENTED NEUTROPHILS % (AUTO) 80.6 % (42-78); WHITE BLOOD COUNT 9.1 10^3/uL (4.0-10.5)
[2016-10-18 07:44] LABS: HEMOGLOBIN 7.9 g/dL (12.0-15.5)
[2016-10-18] MEDS: LANSOPRAZOLE 15 MG TAB.RAP.DR PO SCH (07:45)
[2016-10-18] MEDS ORDERED: NORMAL SALINE 250 ML IV PRN ×2 (08:28)
[2016-10-18 09:00] LABS: ARTERIAL BLOOD BASE EXCESS -14.4 mmol/L
[2016-10-18] MEDS ORDERED: ONDANSETRON HCL INJ/PF 4 MG/2 ML SDV IV PRN (09:09)
[2016-10-18] MEDS ORDERED: LORAZEPAM INJ 2 MG/1 ML VIAL IV PRN (09:09)
[2016-10-18] MEDS ORDERED: FENTANYL CITRATE INJ/PF 100 MCG/2 ML AMPUL IV PRN (09:10)
[2016-10-18] MEDS ORDERED: ATROPINE SULFATE 1% OPH SOLN 5 ML BOTTLE SL PRN (09:11)
[2016-10-18] MEDS ORDERED: PHENOL/SODIUM PHENOLATE 100 SPRAY/177 ML BOTTLE PO PRN (09:14)
--- NOTE | 2016-10-18 09:29 | PDOC PROGRESS REPORT ---
Subjective Progress Note for:: 10/18/16 Physical Exam Vital Signs: Temp Pulse Resp BP Pulse Ox 97.5 F 49 L 12 129/73 H 100 10/18/16 08:00 10/18/16 08:00 10/18/16 08:00 10/18/16 08:00 10/18/16 08:00 Intake & Output 10/17/16 10/18/16 10/19/16 06:59 06:59 06:59 Intake Total 6391 Output Total 127 5 Balance 6264 -5 Weight 96.3 kg Exam: General: Lethargic boardering on obtunded, labored breathing, chronically ill appearing, anasarca HEENT: AT/NC, right pupil unresponsive, EOMI, oropharynx is moist, pink, no scleral icterus, no conjunctival injection Neck: Right neck with ecchymosis, +JVD, trachea midline Chest: labored, Rales bilateral, diminished bases CV: Bradycardic, Regular rate and rhythm, normal S1 and S2; 2/6 sm lusb Abdomen: Soft, diffusely mildly tender to palpation, nondistended, hypoactive bowel sounds; no rebound, rigidity, or guarding Extremities: No cyanosis, clubbing; anasarca Neuro: lethargic but arousable Results Laboratory Results: 10/18/16 06:52 10/18/16 06:52 10/17/16 10/17/16 10/17/16 09:10 09:10 12:35 WBC 10.0 RBC 2.98 L Hgb 8.2 L Hct 25.4 L MCV 85 MCH 27.5 MCHC 32.3 RDW 15.8 H Plt Count 116 L Seg Neutrophils % Not Reportable Lymphocytes % Not Reportable Monocytes % Not Reportable Eosinophils % Not Reportable Basophils % Not Reportable Absolute Neutrophils Not Reportable Absolute Lymphocytes Not Reportable Absolute Monocytes Not Reportable Absolute Eosinophils Not Reportable Absolute Basophils Not Reportable Carbonic Acid 1.19 HCO3/H2CO3 Ratio 11:1 ABG pH 7.14 L* ABG pCO2 39.4 ABG pO2 115.6 H ABG HCO3 13.1 L ABG O2 Saturation 96.9 ABG Base Excess -15.0 FiO2 2L Sodium 143.3 Potassium 3.6 Chloride 115 H Carbon Dioxide 15 L Anion Gap 13 BUN 55 H Creatinine 5.26 H Est GFR ( Amer) 10 L Est GFR (Non-Af Amer) 8 L Glucose 129 H Calcium 7.7 L Phosphorus Magnesium 1.8 Total Bilirubin 0.3 AST 73 H ALT 99 H Alkaline Phosphatase 173 H Total Protein 6.3 Albumin 3.0 L 10/18/16 10/18/16 06:52 06:52 WBC 9.1 RBC 2.81 L Hgb 7.9 L Hct 24.2 L MCV 86 MCH 28.2 MCHC 32.8 RDW 15.9 H Plt Count 103 L Seg Neutrophils % 80.6 H Lymphocytes % 14.3 Monocytes % 4.9 Eosinophils % 0.1 Basophils % 0.1 Absolute Neutrophils 7.4 Absolute Lymphocytes 1.3 Absolute Monocytes 0.5 Absolute Eosinophils 0.0 Absolute Basophils 0.0 Carbonic Acid HCO3/H2CO3 Ratio ABG pH ABG pCO2 ABG pO2 ABG HCO3 ABG O2 Saturation ABG Base Excess FiO2 Sodium 143.6 Potassium 4.5 Chloride 113 H Carbon Dioxide 13 L Anion Gap 18 BUN 53 H Creatinine 5.98 H Est GFR ( Amer) 9 L Est GFR (Non-Af Amer) 7 L Glucose 157 H Calcium 7.5 L Phosphorus 6.8 H Magnesium Total Bilirubin 0.6 AST 52 H ALT 85 H Alkaline Phosphatase 178 H Total Protein 6.8 Albumin 4.1 Impressions: Chest X-Ray 10/17/16 00:00 IMPRESSION: Moderate cardiomegaly. No acute infiltrates. Renal Ultrasound 10/17/16 00:00 IMPRESSION: Right-sided intrarenal nonobstructive calculi. No right hydronephrosis. Stable Small right kidney. Normal size left kidney without stones, cysts, masses, or hydronephrosis Bladder decompressed by a Heredia catheter Venous Doppler Study 10/17/16 00:00 IMPRESSION: No thrombosis of the right internal jugular or subclavian vein. Limited or Localized CT 10/17/16 03:15 IMPRESSION: Relative to 09/13/2016 CT imaging: Stable CT appearance of the abdomen and pelvis, again demonstrating diminutive right kidney with apparent compensatory hypertrophy of the left kidney. Previously described left perinephric fat stranding and retroperitoneal lymphadenopathy persist. No evidence of urolithiasis. KUB X-Ray 10/17/16 19:06 IMPRESSION: NG tube is in satisfactory position. Assessment & Plan - Diagnosis (1) Septic shock Is this a current diagnosis for this admission?: YesPlan: Patient hypothermic, hypotensive, and with obvious source of pyelonephritis. Patient with pyelonephritis of her only functioning kidney. Tracer sounds did not reveal any obstruction. None seen on CT. Patient has had recent kidney ultrasound within the last 2 weeks which reveals small nonobstructing stones of the opposite kidney. Have discussed patient's course with her daughter who is present at bedside in light of patient's acute volume overload and clear indications for dialysis including severe metabolic acidosis, patient family has elected to make her comfort measures at this time. This is consistent with patient's previous wishes and he shouldn't reiterated again yesterday when she was awake alert and oriented that she did not want dialysis under any circumstance. Will stop current medications transition to comfort measures per family request. Initiate patient on fentanyl, Ativan, scopolamine, atropine, and antiemetic therapy. Will downgrade to floor status. Stop vital signs and weight checks. Provide supportive and pastoral care. (2) Metabolic acidosis Is this a current diagnosis for this admission?: YesPlan: Patient has received over 500 mL of 3 A of bicarbonate and has had a decrease in her serum bicarbonate and is now also suffering from a respiratory acidosis. (3) Acute worsening of stage 4 chronic kidney disease Is this a current diagnosis for this admission?: Yes (4) Bradycardia Is this a current diagnosis for this admission?: Yes (5) Hypothyroid Qualifiers: Hypothyroidism type: unspecified Qualified Code(s): E03.9 - Hypothyroidism, unspecified Is this a current diagnosis for this admission?: Yes (6) Pyelonephritis Is this a current diagnosis for this admission?: Yes (7) Diabetes 1.5, managed as type 1 Is this a current diagnosis for this admission?: Yes (8) PAD (peripheral artery disease) Is this a current diagnosis for this admission?: Yes (9) Severe obesity (BMI 35.0-35.9 with comorbidity) Is this a current diagnosis for this admission?: Yes (10) Traumatic ecchymosis of neck Qualifiers: Encounter type: initial encounter Qualified Code(s): S10.93XA - Contusion of unspecified part of neck, initial encounter Is this a current diagnosis for this admission?: Yes (11) Thrombocytopenia Is this a current diagnosis for this admission?: Yes (12) Chronic anemia Is this a current diagnosis for this admission?: Yes (13) Constipation Qualifiers: Constipation type: unspecified constipation type Qualified Code(s): K59.00 - Constipation, unspecified Is this a current diagnosis for this admission?: Yes - Time Time Spent with patient: 35 or more minutes Medications reviewed and adjusted accordingly: Yes
[2016-10-18 09:47] VITALS: BP 96/75
[2016-10-18] MEDS ORDERED: ASPIRIN 81 MG TABLET, CHEWABLE PO SCH (10:00)
[2016-10-18] MEDS ORDERED: SCOPOLAMINE HYDROBROMIDE 1.5 MG PATCH.TD72 TD SCH (10:00)
--- NOTE | 2016-10-18 17:57 | Death Summary ---
Summary Date : 10/18/16 Time of :: 09:55 Autopsy: No Resuscitation Status: Comfort Measures Only Consulting Provider: Dr. Law - Final Diagnosis (1) Acute worsening of stage 4 chronic kidney disease Is this a current diagnosis for this admission?: Yes (2) Metabolic acidosis Is this a current diagnosis for this admission?: Yes (3) Septic shock Is this a current diagnosis for this admission?: Yes (4) Bradycardia Is this a current diagnosis for this admission?: Yes (5) Hypothyroid Is this a current diagnosis for this admission?: Yes (6) Pyelonephritis Is this a current diagnosis for this admission?: Yes (7) Diabetes 1.5, managed as type 1 Is this a current diagnosis for this admission?: Yes (8) PAD (peripheral artery disease) Is this a current diagnosis for this admission?: Yes (9) Thrombocytopenia Is this a current diagnosis for this admission?: Yes (10) Chronic anemia Is this a current diagnosis for this admission?: Yes (11) Constipation Is this a current diagnosis for this admission?: Yes (12) Traumatic ecchymosis of neck Is this a current diagnosis for this admission?: Yes (13) Severe obesity (BMI 35.0-35.9 with comorbidity) Is this a current diagnosis for this admission?: Yes Hospital Course:: Patient presented to the ED with 48 hours of altered mental status and back pain. Patient was found to have acute left-sided pyelonephritis. Complicating this picture, patient suffered at baseline from chronic kidney disease stage IV and on prior admission 2 weeks ago had informed her family and her environmental web crawler that she did not want dialysis. In follow-up, patient had continued to be consistent in this choice. Patient suffered from acute on chronic renal failure resulting in acute metabolic acidosis which was poorly responsive to bicarbonate therapy. Patient had no compensatory respiratory response to her acidosis. Subsequently patient became volume overloaded from fluid resuscitation due to septic shock from her pyelonephritis. Patient developed some nausea and vomiting during which time patient would become bradycardic and passed out. This occurred while patient was on dopamine. Discussion with patient's daughter was had at bedside and patient was made comfort measures. Patient in the company of her family. No autopsy was requested. Patient was pronounced by 2 RNs.
== END 2016-10-18 09:55 | disposition left against medical advice (07) | DRG 871 ==
LOC: ER 19:18 → EH 10-17 05:49 → ICU 10-17 06:50
PROVIDERS: ADMIT Internal Medicine; ATTEND Internal Medicine
PROC: 06HM33Z Insertion of Infusion Device into Right Femoral Vein, Percutaneous Approach (ICD-10-PCS; principal; 2016-10-17)
DX: A41.9 Sepsis, unspecified organism (principal); R65.21 Severe sepsis with septic shock; N10 Acute pyelonephritis; N18.4 Chronic kidney disease, stage 4 (severe); L97.419 Non-pressure chronic ulcer of right heel and midfoot with unspecified severity; E87.2 Acidosis; N17.9 Acute kidney failure, unspecified; Z51.5 Encounter for palliative care; I12.9 Hypertensive chronic kidney disease with stage 1 through stage 4 chronic kidney disease, or unspecified chronic kidney disease; E10.22 Type 1 diabetes mellitus with diabetic chronic kidney disease; D63.8 Anemia in other chronic diseases classified elsewhere; E03.9 Hypothyroidism, unspecified; E66.9 Obesity, unspecified; F32.9 Major depressive disorder, single episode, unspecified; E10.621 Type 1 diabetes mellitus with foot ulcer; L97.519 Non-pressure chronic ulcer of other part of right foot with unspecified severity; N20.0 Calculus of kidney; E10.51 Type 1 diabetes mellitus with diabetic peripheral angiopathy without gangrene; E10.40 Type 1 diabetes mellitus with diabetic neuropathy, unspecified; D69.59 Other secondary thrombocytopenia; K59.00 Constipation, unspecified; Z68.38 Body mass index [BMI] 38.0-38.9, adult; Z79.4 Long term (current) use of insulin; Z82.49 Family history of ischemic heart disease and other diseases of the circulatory system; Z79.899 Other long term (current) drug therapy; Z91.041 Radiographic dye allergy status; Z88.6 Allergy status to analgesic agent; Z53.29 Procedure and treatment not carried out because of patient's decision for other reasons
CPT/HCPCS: 36415; 71010; 74000; 76380; 76770; 80053; 80307; 81001; 82140; 82550; 82553; 82803; 82962; 83605; 83735; 84100; 84443; 84484; 85025; 85610; 86850; 86900; 86901; 87040; 87086; 87088; 87186; 93005; 93010; 93971; C1751; J0461; J0610; J0696; J1265; J1267; J1815; J2060; J2405; J3010; J3490; J7030; J7060; P9047